=== PATIENT | female | born 1940 | race Caucasian/White ===

== ENCOUNTER 2025-05-17 00:26 | Inpatient (IN) | payer MEDICARE, OTHER ==
[2025-05-17] VITALS (13 sets, daily range): BP systolic 90–124; BP diastolic 53–87; PULSE 95–130; RESP 18–24; TEMP 96.7–97.4; O2SAT 93–100
[~2025-05-17] VITALS: Ht 157.5 cm; Wt 59.5 kg
--- NOTE | 2025-05-17 00:47 | ED.PDOC ---
History of Present Illness HPI Comments 84-year-old female transferred from [facility] for cardiac catheterization for NSTEMI. Patient on amiodarone drip for AFib with RVR. REVIEW OF SYSTEMS: General: No fever, no chills, or fatigue HEENT: No sore throat, no earache, no congestion, no neck pain. Cardiac: No chest pain at this time. No palpitations. Lungs: No shortness of breath, no cough. GI: No nausea, no vomiting, no diarrhea, no constipation, no abdominal pain : No dysuria, frequency, or urgency. No hematuria. Musculoskeletal: No joint pain , no joint swelling, no extremity edema. Skin: No rash, no itching. Neuro: No headache, no dizziness, + general weakness (And as sated in HPI) PHYSICAL EXAM: General: Awake, alert and oriented. No acute distress. Skin: Skin in warm, dry and intact. Appropriate color for ethnicity. HEENT: The head is normocephalic and atraumatic. Conjunctivae are clear without exudates or hemorrhage. Sclera is non-icteric. Eyelids are normal in appearance without swelling or lesions. Oral mucosa is pink and moist Neck: The neck is supple with normal range of motion. No JVD. Cardiac: Heart rate is rapid, regular rhythm. No murmurs, gallops, or rubs are auscultated. Respiratory: No signs of respiratory distress. Lung sounds are clear in all lobes bilaterally without rales, rhonchi, or wheezes. Abdominal: Abdomen is soft, non-tender without distention, guarding or rigidity. Bowel sounds are present and normoactive in all four quadrants. Extremities: Upper and lower extremities are atraumatic in appearance without deformity or edema. Neurological: The patient is awake, alert and oriented to person, place, and time with normal speech. Speech is clear. There is no facial asymmetry. Psychiatric: Appropriate mood and affect. Good judgement and insight. Chief Complaint: General Weakness Time Seen by MD: 00:45 Allergies: Coded Allergies: NO KNOWN ALLERGIES (Unverified , 05/17/25) Was a procedure done? Was a procedure done?: No Differential Dx Considerations may include: NSTEMI, AFib, PE X-Ray, Labs, Meds, VS Vital Signs Date Time Temp Pulse Resp B/P (MAP) Pulse Ox O2 Delivery O2 Flow Rate FiO2 05/17/25 04:00 121 28 91/52 (65) 100 05/17/25 04:00 120 05/17/25 03:33 19 99 Nasal Cannula* 2 28 05/17/25 03:22 105 05/17/25 02:24 99 29 103/55 (71) 96 05/17/25 01:18 91 05/17/25 01:03 96.7 96 29 90/53 (65) 100 96.7 05/17/25 01:03 100 Nasal Cannula* 2 28 05/17/25 00:32 96.7 96 20 128/70 97 96.7 05/17/25 00:28 94 Lab Test 05/17/25 03:58 05/17/25 03:17 05/17/25 03:12 05/17/25 02:05 Range/Units Lactic Acid Level 6.4 *H 6.7 *H 0.4-2.0 mmol/L Thyroid Stimulating Hormone (TSH) 0.05 L 0.55-4.78 uIU/mL Random Vancomycin Level 14.6 H 5-10 ug/mL POC Glucose 147 H 70-106 mg/dl Blood Gas Specimen Type Arterial Blood Gas Sample Site Right radial Blood Gas Patient Temperature 37.0 Arterial Blood Date Drawn [id number] Arterial Blood pH 7.292 L 7.350-7.450 Arterial Blood Partial Pressure CO2 29.5 L 32.0-45.0 mmHg Arterial Blood Partial Pressure O2 119.6 H 83.0-108.0 mmHg Arterial Blood HCO3 13.9 L 21.0-28.0 mmol/L Arterial Blood Oxygen Saturation 98.1 H 94.0-98.0 % Arterial Blood Base Excess -11.1 L -2.0-3.0 mmol/L Arterial Blood Oxyhemoglobin 96.4 94.0-98.0 % Arterial Blood Carboxyhemoglobin 1.2 0.5-1.5 % Arterial Blood Methemoglobin 0.5 0.0-1.5 % Demond Test Modified Blood Gas Total Hemoglobin 14.10 12.0-16.0 g/dL Blood Gas Liter Flow 2.00 Blood Gas Modality Nasal cannula FiO2 % 28.0 Potassium Level 5.7 *H 3.5-5.1 mmol/L Troponin I High Sensitivity 417 *H </=34 ng/L Test 05/17/25 00:58 05/17/25 00:55 Range/Units POC Glucose 142 H 70-106 mg/dl White Blood Count 24.8 H 4.4-10.8 10^3/uL Red Blood Count 5.09 4.0-5.20 10^6/uL Hemoglobin 13.7 12.2-16.2 g/dL Hematocrit 42.4 36.0-46.0 % Mean Corpuscular Volume 83.4 80.0-100.0 fL Mean Corpuscular Hemoglobin 27.0 L 28.0-32.0 pg Mean Corpuscular Hemoglobin Concent 32.4 32.0-36.0 g/dL Red Cell Distribution Width 14.5 H 11.8-14.3 % Platelet Count 274 140-450 10^3/uL Mean Platelet Volume 8.8 6.9-10.8 fL Neutrophils (%) (Auto) 91.8 H 37.0-80.0 % Lymphocytes (%) (Auto) 4.6 L 10.0-50.0 % Monocytes (%) (Auto) 3.5 0.0-12.0 % Eosinophils (%) (Auto) 0.0 0.0-7.0 % Basophils (%) (Auto) 0.1 0.0-2.0 % Neutrophils # (Auto) 22.8 H 1.6-8.6 10 ^3/uL Lymphocytes # (Auto) 1.1 0.4-5.4 10 ^3/uL Monocytes # (Auto) 0.9 0-1.3 10 ^3/uL Eosinophils # (Auto) 0 0-0.8 10 ^3/uL Basophils # (Auto) 0 0-0.2 10 ^3/uL Nucleated Red Blood Cells 0.0 % Prothrombin Time 21.6 H 9.3-11.8 sec Prothrombin Time INR 2.20 H 0.9-1.15 Activated Partial Thromboplast Time 41.6 H 24.5-34.5 SEC D-Dimer, Quantitative 3.14 H 0.0-0.49 mg/L FEU Sodium Level 139 136-145 mmol/L Potassium Level 6.0 *H 3.5-5.1 mmol/L Chloride Level 105 98-107 mmol/L Carbon Dioxide Level 18 L 20-31 mmol/L Anion Gap 16 H 5-15 Blood Urea Nitrogen 20 9-23 mg/dL Creatinine 1.26 H 0.550-1.02 mg/dL Glomerular Filtration Rate Calc 42 >90 mL/min BUN/Creatinine Ratio 15.9 10.0-20.0 Serum Glucose 133 H 74-106 mg/dL Calcium Level 9.4 8.7-10.4 mg/dL Troponin I High Sensitivity 411 *H </=34 ng/L B-Type Natriuretic Peptide 497.41 0-100 pg/mL Current Medications Medications (Trade) Dose Ordered Sig/Royce Route Start Time Stop Time Status Last Admin Insulin Human Regular (InsuLIN R) 10 units ONCE ONCE IV 05/17/25 03:00 05/17/25 03:04 DC 05/17/25 03:27 Dextrose 50 ml ONCE ONCE IV 05/17/25 03:00 05/17/25 03:04 DC 05/17/25 03:25 Albuterol (Ventolin Medneb) 20 mg ONCE ONCE NEB 05/17/25 03:00 05/17/25 03:04 DC 05/17/25 03:33 Sodium Bicarbonate 50 ml ONCE ONCE IV 05/17/25 03:00 05/17/25 03:04 DC 05/17/25 03:22 Calcium Gluconate/ Sodium Chloride 50 ml @ 120 mls/hr ONCE ONCE IV 05/17/25 03:00 05/17/25 03:24 DC 05/17/25 03:25 Sodium Chloride 1,000 ml @ 100 mls/hr Q10H ONCE IV 05/17/25 03:00 05/17/25 12:59 DC 05/17/25 03:28 Dextrose 50 ml ONCE ONCE IV 05/17/25 03:30 05/17/25 03:33 DC 05/17/25 03:44 Time of 1ST Reevaluation: 00:46 Reevaluation 1ST: Unchanged Patient Education/Counseling: Need For Follow Up Family Education/Counseling: No Family Present SEPSIS Sepsis Screen Physician Orders Electrocardigram (05/17/25 00:31) Electrocardigram (05/17/25 01:31) Electrocardigram (05/17/25 03:31) Titrate Oxygen (05/17/25 00:43) Oxygen (05/17/25 ) Continous Pulse Oximetry (05/17/25 00:43) Saline Lock (05/17/25 00:43) Do All Operator (05/17/25 ) Chest Xray 1 View (05/17/25 00:43) Abg W/ Co-Ox (05/17/25 02:58) Vital Signs Date Time Temp Pulse Resp B/P (MAP) Pulse Ox O2 Delivery O2 Flow Rate FiO2 05/17/25 04:00 121 28 91/52 (65) 100 05/17/25 04:00 120 05/17/25 03:33 19 99 Nasal Cannula* 2 28 05/17/25 03:22 105 05/17/25 02:24 99 29 103/55 (71) 96 05/17/25 01:18 91 05/17/25 01:03 96.7 96 29 90/53 (65) 100 96.7 05/17/25 01:03 100 Nasal Cannula* 2 28 05/17/25 00:32 96.7 96 20 128/70 97 96.7 05/17/25 00:28 94 Laboratory Tests Test 05/17/25 00:55 05/17/25 02:05 05/17/25 03:58 White Blood Count 24.8 10^3/uL (4.4-10.8) H Lactic Acid Level 6.7 mmol/L (0.4-2.0) *H 6.4 mmol/L (0.4-2.0) *H Departure 1 Departure Time of Disposition: 00:46 Impression: Primary Impression: NSTEMI (non-ST elevated myocardial infarction) Additional Impression: Afib Disposition: ADMITTED INPATIENT Condition: Stable Comments Patient admitted to hospitalist service for further treatment, evaluation and monitoring. Critical Care Note Critical Care Time?: No Stability Stability form required: No Heart Score Heart Score: Heart Score Response (Comments) Value History N/A 0 EKG N/A 0 Age N/A 0 Risk Factors N/A 0 Troponin N/A 0 Total 0 SANDRA DUARTE MD May 17, 2025 00:47
[2025-05-17 01:29] LABS: Hematocrit 42.4 % (36.0-46.0); Hemoglobin 13.7 g/dL (12.2-16.2); Mean Corpuscular Hemoglobin 27.0 pg (28.0-32.0); Mean Corpuscular Volume 83.4 fL (80.0-100.0); Nucleated Red Blood Cells % 0.0 %
[2025-05-17 01:33] LABS: Chloride 105 mmol/L (98-107); Sodium 139 mmol/L (136-145)
[2025-05-17 01:34] LABS: Anion Gap 16 (5-15); Calcium 9.4 mg/dL (8.7-10.4)
[2025-05-17 01:39] LABS: BUN/Creatinine Ratio 15.9 (10.0-20.0); Blood Urea Nitrogen 20 mg/dL (9-23)
[2025-05-17 01:41] LABS: Carbon Dioxide 18 mmol/L (20-31); Glucose 133 mg/dL (74-106)
[2025-05-17 01:42] LABS: Potassium 6.0 mmol/L (3.5-5.1)
--- NOTE | 2025-05-17 02:56 | DVH ---
CHEST RADIOGRAPH Indication: Chest pain Technique: Single frontal view of the chest was obtained COMPARISON: XR CHEST 1 VIEW on DOS: 05/16/25, XR CHEST 2 VIEWS on DOS: 11/27/24, CT CHEST on DOS: 06/10/24, XR CHEST 2 VIEWS on DOS: 12/04/23, XR CHEST 2 VIEWS on DOS: 12/12/21 FINDINGS: Lines and Tubes: None Lungs: Small bilateral pleural effusions and Mild diffuse increased prominence of the pulmonary vasculature. Mild patchy bilateral lower lung zone pulmonary airspace disease. No pneumothorax. Cardiomediastinal contours: Cardiomegaly. Bones: Unremarkable IMPRESSION: 1. Cardiomegaly with mild pulmonary vascular congestion and small bilateral pleural effusions. 2. Mild bilateral lower lung zone pulmonary airspace disease.
[2025-05-17 02:57] LABS: Lactic Acid w/Reflex 6.7 mmol/L (0.4-2.0)
[2025-05-17] MEDS: SODIUM BICARB 8.4% 50Meq/50ml SYR INJ IV ONE (03:22)
[2025-05-17] MEDS: CALCIUM GLUC 1,000mg/50ml-NS 50 ML IV ONE (03:25)
[2025-05-17] MEDS: DEXTROSE (50%) 50ML SYRG IV ONE ×2 (03:25→03:44)
[2025-05-17 03:26] LABS: Base Excess -11.1 mmol/L (-2.0-3.0)
[2025-05-17] MEDS: InsuLIN REG 1unit/0.01ml Soln (100units/ml) IV ONE (03:27)
[2025-05-17] MEDS: SODIUM CHLORIDE 0.9% 1,000 ML IV ONE (03:28)
[2025-05-17] MEDS: ALBUTEROL SULF 2.5 MG/0.5ML(0.5%) NEB SOLN NEB ONE (03:33)
[2025-05-17 04:20] LABS: INR 2.2 (0.9-1.15); Partial Thromboplastin Time 41.6 SEC (24.5-34.5); Prothrombin Time 21.6 sec (9.3-11.8)
[2025-05-17] MEDS ORDERED: MORPHINE SULFATE INJ 2 MG/ml SYRG IV PRN (04:30)
[2025-05-17] MEDS ORDERED: VANCOMYCIN PER PHARMACY 0 MG IV SCH (04:30)
[2025-05-17] MEDS ORDERED: NITROGLYCERIN 0.4 MG SL TAB SL PRN (04:30)
[2025-05-17] MEDS ORDERED: ACETAMINOPHEN 325 MG TAB PO PRN (04:30)
[2025-05-17] MEDS ORDERED: ALBUTEROL SULF 2.5 MG/0.5ML(0.5%) NEB SOLN NEB PRN (04:30)
[2025-05-17] MEDS ORDERED: VANCOMYCIN 1GM/200ML PM 200 ML IV ONE (04:45)
--- NOTE | 2025-05-17 04:45 | DVHHP2 ---
History of Present Illness Reason for Visit: Higher level of care History of Present Illness 84-year-old female transferred from [facility] for higher level of care. Patient presented to outside facility with complaints of generalized weakness. She reports also left-sided chest pain that has been ongoing for the past day with radiation to her back. Patient was noted to be in AFib with RVR and was started on amiodarone drip and transferred for higher level of care and cardiology evaluation. Past Medical History COPD, hypertension, AFib Family History Noncontributory Smoke: No ALCOHOL: none Drugs: None Review of Systems Review of Systems Review of systems are negative otherwise addressed in HPI. Allergies: Coded Allergies: NO KNOWN ALLERGIES (Unverified , 05/17/25) Medications Current Medications Medications Dose Ordered Sig/Royce Route Start Time Stop Time Status Last Admin Dose Admin Cefepime HCl 50 ml @ 12.5 mls/hr Q12HR IV 05/17/25 10:00 Vancomycin HCl 0 ml @ 0 mls/hr PER PHARMACY IV 05/17/25 04:30 UNV Albuterol 2.5 mg Q6HPRN PRN NEB 05/17/25 04:30 Amiodarone HCl 250 ml @ 16.66 mls/ hr Q15H1M IV 05/17/25 10:45 Guaifenesin/ Dextromethorphan 10 ml Q4HP PRN PO 05/17/25 04:30 Ondansetron HCl 4 mg Q4HP PRN IV 05/17/25 04:30 Acetaminophen 650 mg Q6HP PRN PO 05/17/25 04:30 Nitroglycerin 0.4 mg Q5MINP PRN SL 05/17/25 04:30 Morphine Sulfate 2 mg Q30M PRN IV 05/17/25 04:30 Exam Vital Signs Vital Signs Date Time Temp Pulse Resp B/P (MAP) Pulse Ox O2 Delivery O2 Flow Rate FiO2 05/17/25 04:26 130 05/17/25 03:33 19 99 Nasal Cannula* 2 28 05/17/25 01:03 96.7 90/53 (65) 96.7 Exam Gen: 84-year-old female in mild distress Skin: Warm, dry, normal color and texture, no rash. HEENT: Normocephalic atraumatic, mucous membranes moist and pink. Neck: Cervical and supraclavicular nodes normal without enlargement, trachea is midline, thyroid gland is normal without masses. Pulmonary: Clear to auscultation and percussion bilaterally. Cardiac: Irregular rhythm Abdomen: Soft, nontender, nondistended, bowel sounds present all 4 quadrants, no guarding, no rigidity, no organomegaly. Extremities: No cyanosis, clubbing, no edema Neuro: Cranial nerves II through XII grossly intact, normal affect and speech, no focal motor deficits. Labs/Xrays Labs Test 05/17/25 03:58 05/17/25 03:17 05/17/25 03:12 05/17/25 02:05 Range/Units POC Glucose 147 H 70-106 mg/dl Blood Gas Specimen Type Arterial Blood Gas Sample Site Right radial Blood Gas Patient Temperature 37.0 Arterial Blood Date Drawn Arterial Blood pH 7.292 L 7.350-7.450 Arterial Blood Partial Pressure CO2 29.5 L 32.0-45.0 mmHg Arterial Blood Partial Pressure O2 119.6 H 83.0-108.0 mmHg Arterial Blood HCO3 13.9 L 21.0-28.0 mmol/L Arterial Blood Oxygen Saturation 98.1 H 94.0-98.0 % Arterial Blood Base Excess -11.1 L -2.0-3.0 mmol/L Arterial Blood Oxyhemoglobin 96.4 94.0-98.0 % Arterial Blood Carboxyhemoglobin 1.2 0.5-1.5 % Arterial Blood Methemoglobin 0.5 0.0-1.5 % Demond Test Modified Blood Gas Total Hemoglobin 14.10 12.0-16.0 g/dL Blood Gas Liter Flow 2.00 Blood Gas Modality Nasal cannula FiO2 % 28.0 Potassium Level 5.7 *H 3.5-5.1 mmol/L Troponin I High Sensitivity 417 *H </=34 ng/L Test 05/17/25 00:55 Range/Units White Blood Count 24.8 H 4.4-10.8 10^3/uL Red Blood Count 5.09 4.0-5.20 10^6/uL Hemoglobin 13.7 12.2-16.2 g/dL Hematocrit 42.4 36.0-46.0 % Mean Corpuscular Volume 83.4 80.0-100.0 fL Mean Corpuscular Hemoglobin 27.0 L 28.0-32.0 pg Mean Corpuscular Hemoglobin Concent 32.4 32.0-36.0 g/dL Red Cell Distribution Width 14.5 H 11.8-14.3 % Platelet Count 274 140-450 10^3/uL Mean Platelet Volume 8.8 6.9-10.8 fL Neutrophils (%) (Auto) 91.8 H 37.0-80.0 % Lymphocytes (%) (Auto) 4.6 L 10.0-50.0 % Monocytes (%) (Auto) 3.5 0.0-12.0 % Eosinophils (%) (Auto) 0.0 0.0-7.0 % Basophils (%) (Auto) 0.1 0.0-2.0 % Neutrophils # (Auto) 22.8 H 1.6-8.6 10 ^3/uL Lymphocytes # (Auto) 1.1 0.4-5.4 10 ^3/uL Monocytes # (Auto) 0.9 0-1.3 10 ^3/uL Eosinophils # (Auto) 0 0-0.8 10 ^3/uL Basophils # (Auto) 0 0-0.2 10 ^3/uL Nucleated Red Blood Cells 0.0 % Prothrombin Time 21.6 H 9.3-11.8 sec Prothrombin Time INR 2.20 H 0.9-1.15 Activated Partial Thromboplast Time 41.6 H 24.5-34.5 SEC Sodium Level 139 136-145 mmol/L Chloride Level 105 98-107 mmol/L Carbon Dioxide Level 18 L 20-31 mmol/L Anion Gap 16 H 5-15 Blood Urea Nitrogen 20 9-23 mg/dL Creatinine 1.26 H 0.550-1.02 mg/dL Glomerular Filtration Rate Calc 42 >90 mL/min BUN/Creatinine Ratio 15.9 10.0-20.0 Serum Glucose 133 H 74-106 mg/dL Calcium Level 9.4 8.7-10.4 mg/dL B-Type Natriuretic Peptide 497.41 0-100 pg/mL SEPSIS Sepsis Screen Date sepsis recognized/suspect: May 17, 2025 Time Sepsis recognized/suspect: 010 Recent Procedure: No On Antibiotic Therapy: Yes Respiratory Rate >20: Yes Heart Rate >90: Yes Temp<36 C (96.8 F) or >38.3 C: Yes SBP <90 or MAP <65 mmHG: No New Acute Mental Status Change: No Is the patient on CPAP, BIPAP,: No Physician Orders Electrocardigram (05/17/25 00:31) Electrocardigram (05/17/25 01:31) Electrocardigram (05/17/25 03:31) Titrate Oxygen (05/17/25 00:43) Oxygen (05/17/25 ) Continous Pulse Oximetry (05/17/25 00:43) Saline Lock (05/17/25 00:43) Door Liner Helper (05/17/25 ) Chest Xray 1 View (05/17/25 00:43) Abg W/ Co-Ox (05/17/25 02:58) Sodium Chloride 0.9% (05/17/25 03:00) Blood Culture (05/17/25 04:24) Cefepime 1gm/50ml (Maxipime 1gm/50ml) (05/17/25 10:00) Vancomycin Per Pharmacy (05/17/25 04:30) Albuterol Medneb (Ventolin Medneb) (05/17/25 04:30) * Cardiology Consult (05/17/25 04:24) Amiodarone 450mg/250ml Ae (Cordarone) (05/17/25 04:45) Amiodarone 450mg/250ml Ae (Cordarone) (05/17/25 10:45) Thyroid Stimulating Hormone (05/17/25 04:24) Guaifenesin-Dextromet Liquid (Robitussin (05/17/25 04:30) Basic Metabolic Panel (05/18/25 04:00) Admit (05/17/25 04:24) Ondansetron Hcl (Zofran) (05/17/25 04:30) Complete Blood Count (05/18/25 04:00) Echo 2d Mode Cardiac Dop (05/17/25 04:24) Condition: Serious (05/17/25 04:24) Acetaminophen Tablet (Tylenol Tablet) (05/17/25 04:30) Bedrest With Bathroom Privileg (05/17/25 04:24) Nitroglycerin Sublingual (Ntrostat Subli (05/17/25 04:30) Morphine Sulfate Injection (05/17/25 04:30) Stat Ekg For Chest Pain (05/17/25 04:24) Notify Of Changes From Base (05/17/25 04:24) Global Expansion Sales Director For 24 Hours (05/17/25 04:24) Emergency Dysrhythmia Protocol (05/17/25 04:24) Rhythm Strips Once Every Shift (05/17/25 04:24) Oxygen By Nasal Cannula (05/17/25 04:24) Vancomycin 1gm/200ml Pm (05/17/25 04:45) Vital Signs Date Time Temp Pulse Resp B/P (MAP) Pulse Ox O2 Delivery O2 Flow Rate FiO2 05/17/25 04:26 130 05/17/25 03:33 19 99 Nasal Cannula* 2 28 05/17/25 03:22 105 05/17/25 01:18 91 05/17/25 01:03 96.7 96 29 90/53 (65) 100 96.7 05/17/25 00:32 96.7 96 20 128/70 97 96.7 05/17/25 00:28 94 Laboratory Tests Test 05/17/25 00:55 05/17/25 02:05 05/17/25 03:58 White Blood Count 24.8 10^3/uL (4.4-10.8) H Lactic Acid Level 6.7 mmol/L (0.4-2.0) *H Pending Medications Medications Dose Ordered Sig/Royce Route Start Time Stop Time Status Last Admin Dose Admin Albuterol 20 mg ONCE ONCE NEB 05/17/25 03:00 05/17/25 03:04 DC 05/17/25 03:33 20 MG Calcium Gluconate/ Sodium Chloride 50 ml @ 120 mls/hr ONCE ONCE IV 05/17/25 03:00 05/17/25 03:24 DC 05/17/25 03:25 120 MLS/HR Dextrose 50 ml ONCE ONCE IV 05/17/25 03:00 05/17/25 03:04 DC 05/17/25 03:25 50 ML Dextrose 50 ml ONCE ONCE IV 05/17/25 03:30 05/17/25 03:33 DC 05/17/25 03:44 50 ML Insulin Human Regular 10 units ONCE ONCE IV 05/17/25 03:00 05/17/25 03:04 DC 05/17/25 03:27 10 UNITS Sodium Bicarbonate 50 ml ONCE ONCE IV 05/17/25 03:00 05/17/25 03:04 DC 05/17/25 03:22 50 ML Sodium Chloride 1,000 ml @ 100 mls/hr Q10H ONCE IV 05/17/25 03:00 05/17/25 12:59 05/17/25 03:28 100 MLS/HR Assessment/Plan Assessment/Plan Assessment NSTEMI AFib with RVR Sepsis Possible pneumonia Leukocytosis Secondary coagulopathy Plan Admit the patient to [facility] to the hospitalist Cardiology consultation NPO except medications Continue amiodarone drip Cefepime/vancomycin Continue treatment per orders. Total critical care time excluding procedures performed this 55 minutes. Plan discussed with: Patient My Orders Orders - MEYERAUBREYSHAMA AGACNP Procedure Category Date Status Time Blood Culture MARYJANE 05/17/25 Logged 04:24 Cefepime 1gm/50ml PHA 05/17/25 In Process (Maxipime 1gm/50ml) 10:00 Vancomycin Per PHA 05/17/25 Pending Pharmacy 04:30 Albuterol Medneb PHA 05/17/25 In Process (Ventolin Medneb) 04:30 * Cardiology Consult CONS 05/17/25 Transmitted 04:24 Amiodarone PHA 05/17/25 In Process 450mg/250ml Ae 04:45 Amiodarone PHA 05/17/25 In Process 450mg/250ml Ae 10:45 Thyroid Stimulating LAB 05/17/25 In Process Hormone 04:24 Guaifenesin-Dextromet PHA 05/17/25 In Process Liquid (Robitussin 04:30 Basic Metabolic Panel LAB 05/18/25 Verified 04:00 Admit ADMIT 05/17/25 Transmitted 04:24 Ondansetron Hcl PHA 05/17/25 In Process (Zofran) 04:30 Complete Blood Count LAB 05/18/25 Verified 04:00 Echo 2d Mode Cardiac US 05/17/25 Logged DOP 04:24 Condition: Serious TELLY 05/17/25 In Process 04:24 Acetaminophen Tablet PHA 05/17/25 In Process (Tylenol Tablet) 04:30 Bedrest With Bathroom TELLY 05/17/25 In Process Privileg 04:24 Nitroglycerin PHA 05/17/25 In Process Sublingual (Ntrostat 04:30 Morphine Sulfate PHA 05/17/25 In Process Injection 04:30 Stat Ekg For Chest TELLY 05/17/25 In Process Pain 04:24 Notify Of Changes [facility] 05/17/25 In Process From Base 04:24 Global Expansion Sales Director For [facility] 05/17/25 In Process 24 Hours 04:24 Emergency Dysrhythmia [facility] 05/17/25 In Process Protocol 04:24 Rhythm Strips Once [facility] 05/17/25 In Process Every Shift 04:24 Oxygen By Nasal RT 05/17/25 Transmitted Cannula 04:24 Vancomycin 1gm/200ml [facility] 05/17/25 In Process Pm 04:45 Date of Service: May 17, 2025 Billing Provider: AUBREY MEYER Common Visit Codes: [id number] CARE 30-74 MIN AUBREY MEYER May 17, 2025 04:45
[2025-05-17] MEDS: CEFEPIME 1GM/50ML 50 ML IV SCH (08:56)
--- NOTE | 2025-05-17 10:20 | DVHINCON2 ---
Date Seen: May 17, 2025 Referring Physician DMITRY Milner Reason for Consultation NSTEMI History of Present Illness This is a pleasant 84-year-old female who presented to the emergency room via EMS as a transfer from [facility] for higher level of care given trending troponin levels. The patient presented to the aforementioned facility via EMS with a chief complaint of generalized weakness associated with a productive cough for approximately one day. EN route to the hospital the patient was found to be tachycardic in an atrial fibrillation rhythm with a rapid ventricular rate and an associated heart rate was in the 160s bpm. She was medicated with metoprolol 5 mg IV x3 and metoprolol 25 mg p.o, started on an amiodarone drip including a bolus dosage, and administered 1 L of IV fluids initially and subsequently 40 mg of Lasix IV. Given non-sensitive troponin levels from 0.05 ng/mL followed by 0.20 ng/mL it was decided to transfer to [facility] for further evaluation. At time of assessment the patient complaint of increased lethargy, chest congestion, productive cough. She is currently on IVF at 100 mls/hr and an amiodarone drip at 1 mg/hr. The patient reports following up in the outpatient setting with the primary ceo & co founder Dr. Anderson and undergoing a cardiac catheterization without catheter based intervention given normal coronaries in [place] in 06/2023. Significant medical history includes unspecified congestive heart failure, likely persistent atrial fibrillation on Eliquis/metoprolol therapy, history of pulmonary emboli in 06/2023, hypertension, dyslipidemia, hypothyroidism, nonsmoker COPD/emphysema, and CPAP dependence HS. Past Medical History Past medical history reviewed. No other significant than mentioned above. Past Surgical History Past surgical history reviewed. No other significant than mentioned above. Family History Family history reviewed. Social History Denies the use of illicit drugs, alcohol, or tobacco use. Allergies: Coded Allergies: NO KNOWN ALLERGIES (Unverified , 05/17/25) Home Meds Home medications reviewed. Current Medications Current Medications Medications (Trade) Dose Ordered Sig/Royce Route PRN Reason Start Time Stop Time Status Last Admin Cefepime HCl 50 ml @ 12.5 mls/hr Q12HR IV 05/17/25 10:00 05/17/25 08:56 Vancomycin HCl 0 ml @ 0 mls/hr PER PHARMACY IV 05/17/25 04:30 Albuterol (Ventolin Medneb) 2.5 mg Q6HPRN PRN NEB SHORTNESS OF BREATH 05/17/25 04:30 Amiodarone HCl 250 ml @ 16.66 mls/ hr Q15H1M IV 05/17/25 10:45 Guaifenesin/ Dextromethorphan (Robitussin-Dm Liquid) 10 ml Q4HP PRN PO FOR COUGH 05/17/25 04:30 Ondansetron HCl (Zofran) 4 mg Q4HP PRN IV NAUSEA / VOMITING 05/17/25 04:30 Acetaminophen (Tylenol Tablet) 650 mg Q6HP PRN PO PAIN SCALE 1-3 OR TEMP>100.4 05/17/25 04:30 Nitroglycerin (Ntrostat Sublingual) 0.4 mg Q5MINP PRN SL FOR CHEST PAIN 05/17/25 04:30 Morphine Sulfate 2 mg Q30M PRN IV FOR CHEST PAIN 05/17/25 04:30 Review of Systems Constitutional: No symptom reported Ears, Nose, & Throat: No symptom reported Eyes: No symptom reported Neurological: No symptoms reported Pulmonary/Respiratory: SOB, chest congestion, productive cough Cardiovascular: No symptom reported Gastrointestinal: No symptom reported Genitourinary: No symptom reported Musculoskeletal: No symptom reported Skin: No symptom reported Psychiatric: No symptom reported Endocrine: No symptom reported Hemotologic/Lymphatic: No symptom reported Vital Signs Vital Signs Date Time Temp Pulse Resp B/P (MAP) Pulse Ox O2 Delivery O2 Flow Rate FiO2 05/17/25 08:00 122 05/17/25 06:30 97.4 24 95/62 (73) 97 97.4 05/17/25 06:11 Room Air* 0 21 Physical Exam General Appearance: Cooperative. Lethargic. Tachypneic. SOB Head Exam: Normal inspection Neck Exam: Normal inspection. Non-tender. Normal alignment Pulmonary/Respiratory: Chest non-tender. Coarse/adventitious bilateral breath sounds. O2 via NC Cardiovascular/Chest: Irregularly irregular rate and rhythm. AFib low 100s bpm. No murmurs. No JVD. Peripheral Pulses: 2+ Radial (R). 2+ Radial (L). 2+ Pedal (R). 2+ Pedal (L) Abdominal Exam: Normal bowel sounds. Soft. Nontender. No hepatospenomegaly. No masses Ankle Exam: Negative ankle edema Lower extremities: Negative lower extremity edema Neuro/Mental Status: A&O x4. Coherent Thoughts/Psych: Normal thought pattern. Appropriate mood and affect. Good judgement and insight Appearance: Lethargic. Tachypneic. SOB Skin Exam: Normal inspection. Normal color. Warm. Dry Labs/Diagnostic Data Labs Test 05/17/25 08:02 05/17/25 03:58 05/17/25 03:12 05/17/25 02:05 Range/Units POC Glucose 340 H 70-106 mg/dl Lactic Acid Level 6.4 *H 0.4-2.0 mmol/L Thyroid Stimulating Hormone (TSH) 0.05 L 0.55-4.78 uIU/mL Random Vancomycin Level 14.6 H 5-10 ug/mL Blood Gas Specimen Type Arterial Blood Gas Sample Site Right radial Blood Gas Patient Temperature 37.0 Arterial Blood Date Drawn [id number] Arterial Blood pH 7.292 L 7.350-7.450 Arterial Blood Partial Pressure CO2 29.5 L 32.0-45.0 mmHg Arterial Blood Partial Pressure O2 119.6 H 83.0-108.0 mmHg Arterial Blood HCO3 13.9 L 21.0-28.0 mmol/L Arterial Blood Oxygen Saturation 98.1 H 94.0-98.0 % Arterial Blood Base Excess -11.1 L -2.0-3.0 mmol/L Arterial Blood Oxyhemoglobin 96.4 94.0-98.0 % Arterial Blood Carboxyhemoglobin 1.2 0.5-1.5 % Arterial Blood Methemoglobin 0.5 0.0-1.5 % Demond Test Modified Blood Gas Total Hemoglobin 14.10 12.0-16.0 g/dL Blood Gas Liter Flow 2.00 Blood Gas Modality Nasal cannula FiO2 % 28.0 Potassium Level 5.7 *H 3.5-5.1 mmol/L Troponin I High Sensitivity 417 *H </=34 ng/L Test 05/17/25 00:55 Range/Units White Blood Count 24.8 H 4.4-10.8 10^3/uL Red Blood Count 5.09 4.0-5.20 10^6/uL Hemoglobin 13.7 12.2-16.2 g/dL Hematocrit 42.4 36.0-46.0 % Mean Corpuscular Volume 83.4 80.0-100.0 fL Mean Corpuscular Hemoglobin 27.0 L 28.0-32.0 pg Mean Corpuscular Hemoglobin Concent 32.4 32.0-36.0 g/dL Red Cell Distribution Width 14.5 H 11.8-14.3 % Platelet Count 274 140-450 10^3/uL Mean Platelet Volume 8.8 6.9-10.8 fL Neutrophils (%) (Auto) 91.8 H 37.0-80.0 % Lymphocytes (%) (Auto) 4.6 L 10.0-50.0 % Monocytes (%) (Auto) 3.5 0.0-12.0 % Eosinophils (%) (Auto) 0.0 0.0-7.0 % Basophils (%) (Auto) 0.1 0.0-2.0 % Neutrophils # (Auto) 22.8 H 1.6-8.6 10 ^3/uL Lymphocytes # (Auto) 1.1 0.4-5.4 10 ^3/uL Monocytes # (Auto) 0.9 0-1.3 10 ^3/uL Eosinophils # (Auto) 0 0-0.8 10 ^3/uL Basophils # (Auto) 0 0-0.2 10 ^3/uL Nucleated Red Blood Cells 0.0 % Prothrombin Time 21.6 H 9.3-11.8 sec Prothrombin Time INR 2.20 H 0.9-1.15 Activated Partial Thromboplast Time 41.6 H 24.5-34.5 SEC D-Dimer, Quantitative 3.14 H 0.0-0.49 mg/L FEU Sodium Level 139 136-145 mmol/L Chloride Level 105 98-107 mmol/L Carbon Dioxide Level 18 L 20-31 mmol/L Anion Gap 16 H 5-15 Blood Urea Nitrogen 20 9-23 mg/dL Creatinine 1.26 H 0.550-1.02 mg/dL Glomerular Filtration Rate Calc 42 >90 mL/min BUN/Creatinine Ratio 15.9 10.0-20.0 Serum Glucose 133 H 74-106 mg/dL Calcium Level 9.4 8.7-10.4 mg/dL B-Type Natriuretic Peptide 497.41 0-100 pg/mL Assessment Sepsis with PNA Acute on chronic hypoxic respiratory failure Acute on chronic decompensated HF, NYHA Class IV Likely persistent AFib with RVR, stage IIIB (on Eliquis/metoprolol therapy) COPD/emphysema exacerbation NSTEMI, likely type 2 secondary to above Hx of PE in 2022 with elevated d-dimer, rule out PE/DVT Thyroid disease Dyslipidemia * Transthoracic echocardiogram pending * Twelve-lead electrocardiograms revealed an atrial fibrillation rhythm with intermittent RVR and no ST-T wave segment changes suggestive of acute ischemia * CXR revealed cardiomegaly with mild pulmonary vascular congestion and small bilateral pleural effusions. Mild bilateral lower zone pulmonary airspace disease * Serial troponin levels flat at 400s ng/L x2 * [facility]: * WBC 22.0, BNP 573, Troponin up to 0.20 ng/mL, TSH 0.03, lactic acid 2.7, D- dimer 0.98 * CXR 1 view: cardiomegaly with increasing interstitial markings especially in the middle HS. Infection versus congestive failure or bolus in the differential * CT head w/o contrast: No CT evidence of an acute intracranial abnormality. Intermediate areas of extensive soft tissue emphysema tracking along the cavernous sinuses and likely along the venous structures likely related to iatrogenic injection of the air and less likely related to soft tissue infection. Correlate with clinical exam * CT chest-abdomen pelvis w/o contrast: Small bilateral pleural effusions with bilateral lower lobe predominant cylindrical bronchiectasis and peribronchial thickening. Patchy areas of consolidation with marginal ground-glass versus masses. Prominent mediastinal lymphadenopathy. Large amount of stool burden with in the lower rectum. Broad differential includes infection however neoplastic disease not excluded mediastinal lymphadenopathy might be reactive versus neoplastic Plan/Recommendation (Dr. Swanson) Case discussed with Dr. Swanson. We will continue further cardiac evaluation with a transthoracic echocardiogram. Obtain lower extremity venous US to rule out DVT. Continue amiodarone drip per pharmacy protocol (suspected persistent A- fib) and initiate therapeutic Lovenox ([id number] Score 5 points, HAS-BLED Score 1 point). Obtain influenza, COVID-19 swabs, and urine sample. Initiate vasopressor for hemodynamic support as necessary. Monitor electrolytes and renal function closely. Strict I&Os. Consider pulmonology consultation. Abx therapy per primary care team. Further orders per clinical course. Thank you for allowing us to participate in this patient's care. Please call if you have any questions or concerns. Critical care time: 40 min. This medical document was created using an e lectronic medical record system with voice recognition software and computerized dictation system. Although this document has been carefully reviewed, there might still be some phonetic and typographical errors. Occasional wrong-word or ``sound-alike substitutions may have occurred due to the inherent limitations of voice recognition software. These areas are purely typographical due to imperfections of the software programs and do not reflect any compromise in the patient's medical care. Please read the chart carefully and recognize, using context, where these substitutions have occurred. Plan discussed with: Patient, Other NYHA Physical activity limitations: Class4(Severe)discomfort (w any activit,symptoms at rest) Date of Service: May 17, 2025 Billing Provider: OLGA GILL Cardiology Common Codes: [id number] CARE 30-74 MIN OLGA GILL May 17, 2025 10:20
[2025-05-17] MEDS ORDERED: ENOXAPARIN SOD 100 MG/1 ML SYRINGE SC ONE (10:30)
[2025-05-17] MEDS ORDERED: DEXTROSE (50%) 50ML SYRG IV PRN (10:30)
[2025-05-17] MEDS: guaiFENesin-DM 100/10mg/5ml SYR PO PRN (10:52)
[2025-05-17] MEDS: LEVALBUTEROL HCL 1.25 MG/3 ML NEB ONE (11:02)
--- NOTE | 2025-05-17 11:47 | DVHSR ---
APPROVED REPORT EXAM: Two-dimensional and M-mode echocardiogram with Doppler and color Doppler. Blood Pressure: 95/62 mmHg INDICATION ef RISK FACTORS Height: 62, Weight: 149 DIMENSIONS LVDd 5.0 (3.8-5.7cm) LA (2D) 4.2 (1.9-4.0cm) Aortic Root 3.2 (2.0-3.7cm) LVDs 3.4 (2.5-4.0cm) LA (MM) (1.9-4.0cm) Aortic Cusp Exc 1.3 (1.5-2.0cm) EF (%) 45.0 (55-70%) Rt. Atrium 4.6 (1.9-4.0cm) Asc. Aorta cm IVSd 0.9 (0.7-1.1cm) RV (D) 4.6 (1.8-2.4cm) PWd 0.9 (0.7-1.1cm) Mitral Valve Mitral Mitral Stenosis A wave m/s MV Peak GR. 78mmHg E/A ratio 0.0 2D MVA cm2 Aortic Valve Aortic Valve Aortic Stenosis V1 0.55m/s AO Mean GR. 3mmHg V2 1.10m/s AO Peak GR. 5mmHg LVOT Diameter 2.1 (1.8-2.4cm) Doppler NIMO 1.73cm2 Tricuspid Valve TR Velocity 3.41m/s RVSP 55mmHg Conclusion lvef 25% dilated LV RV dysfunction biatrial enlargement severe aortic sclerosis, cannot rule out , given low flow status moderate tricuspid regurg
[2025-05-17 12:13] LABS: Hematocrit 38.3 % (36.0-46.0); Hemoglobin 12.0 g/dL (12.2-16.2); Mean Corpuscular Hemoglobin 26.1 pg (28.0-32.0); Mean Corpuscular Volume 83.2 fL (80.0-100.0); Nucleated Red Blood Cells % 0.0 %
[2025-05-17] MEDS: ACCU-CHEK COMFORT CURVE STRIP VI SCH (12:17)
[2025-05-17] MEDS: InsuLIN REG 1unit/0.01ml Soln (100units/ml) SC SCH ×2 (12:17→22:00)
[2025-05-17] MEDS: ENOXAPARIN SOD 80 MG/0.8ML SYRINGE SC ONE (12:18)
[2025-05-17 12:19] LABS: Chloride 102 mmol/L (98-107); Potassium 4.5 mmol/L (3.5-5.1); Sodium 136 mmol/L (136-145)
[2025-05-17 12:20] LABS: Anion Gap 18 (5-15); Calcium 9.0 mg/dL (8.7-10.4)
[2025-05-17 12:25] LABS: BUN/Creatinine Ratio 14.7 (10.0-20.0)
[2025-05-17 12:28] LABS: Blood Urea Nitrogen 32 mg/dL (9-23); Carbon Dioxide 16 mmol/L (20-31); Glucose 335 mg/dL (74-106)
[2025-05-17 12:33] LABS: Triglycerides 132 mg/dL (< 150)
[2025-05-17 12:34] LABS: Free T4 (Free Thyroxine) 1.4 ng/dL (0.89-1.76)
[2025-05-17 12:35] LABS: Cholesterol 97 mg/dL (< 200)
[2025-05-17 12:36] LABS: HDL Cholesterol 40 mg/dL (40-59)
[2025-05-17 12:48] LABS: COVID19 ANTIGEN SOFIA FIA NEGATIVE (NEGATIVE)
[2025-05-17 12:57] LABS: Urine Protein, UAD 1+ (Negative)
[2025-05-17] MEDS: MAGNESIUM SULFATE 1GM/100ML 100 ML IV ONE (14:40)
--- NOTE | 2025-05-17 15:34 | DVHPN2 ---
Subjective Patient reports generalized weakness and shortness of breaths. Reviewed: Care Plan, H&P, Labs, Medications, Previous Orders Changes from previous H/P or p: No Changes General: Per HPI Objective Vitals Vital Signs Date Time Temp Pulse Resp B/P (MAP) Pulse Ox O2 Delivery O2 Flow Rate FiO2 05/17/25 14:00 104 20 106/76 (86) 92 05/17/25 12:00 98.1 98.1 05/17/25 11:02 Nasal Cannula 1.0 05/17/25 11:02 24 General Appearance: Alert, Oriented X3, Cooperative, mild distress HEENT: Atraumatic, PERRLA Lungs: Clear to auscultation, Normal air movement Cardiovascular: Normal S1, Normal S2, Other (Atrial fibrillation) Abdomen: Normal bowel sounds, Soft, No tenderness, No hepatospenomegaly Musculoskeletal: Normal sensory function Extremities: No clubbing, No cyanosis, No edema, Normal pulses, No tenderness/swelling Neuro: Normal speech Skin: Dry, Intact Psych/Mental Status: Mental status NL, Mood NL Medications Current Medications Medications Dose Ordered Sig/Royce Route Start Time Stop Time Status Last Admin Dose Admin Cefepime HCl 50 ml @ 12.5 mls/hr Q12HR IV 05/17/25 10:00 05/17/25 08:56 12.5 MLS/HR Albuterol 2.5 mg Q6HPRN PRN NEB 05/17/25 04:30 Amiodarone HCl 250 ml @ 16.66 mls/ hr Q15H1M IV 05/17/25 10:45 05/17/25 11:09 16.66 MLS/HR Guaifenesin/ Dextromethorphan 10 ml Q4HP PRN PO 05/17/25 04:30 05/17/25 10:52 10 ML Ondansetron HCl 4 mg Q4HP PRN IV 05/17/25 04:30 Acetaminophen 650 mg Q6HP PRN PO 05/17/25 04:30 Nitroglycerin 0.4 mg Q5MINP PRN SL 05/17/25 04:30 Morphine Sulfate 2 mg Q30M PRN IV 05/17/25 04:30 Enoxaparin Sodium 70 mg Q12HR SC 05/17/25 22:00 UNV Norepinephrine Bitartrate 32 mg/ Sodium Chloride 250 ml @ 0.938 mls/ hr Q24H IV 05/17/25 10:30 Diagnostic Test (Pha) 1 strip ACHS 05/17/25 11:30 05/17/25 12:17 1 STRIP Insulin Human Regular HS SC 05/17/25 22:00 Insulin Human Regular AC SC 05/17/25 11:30 05/17/25 12:17 12 UNITS Dextrose 50 ml UD PRN IV 05/17/25 10:30 Levalbuterol HCl 1.25 mg Q6HR NEB 05/17/25 12:00 Enoxaparin Sodium 70 mg DAILY SC 05/18/25 10:00 Linezolid 300 ml @ 150 mls/hr Q12HR IV 05/17/25 22:00 UNV Laboratory Results Laboratory Tests 05/17/25 11:48 Chemistry Test 05/17/25 00:55 05/17/25 11:48 Calcium Level 9.4 mg/dL (8.7-10.4) 9.0 mg/dL (8.7-10.4) Magnesium Level 1.7 mg/dL (1.6-2.6) Coagulation Test 05/17/25 00:55 Prothrombin Time 21.6 sec (9.3-11.8) H Prothrombin Time INR 2.20 (0.9-1.15) H Activated Partial Thromboplast Time 41.6 SEC (24.5-34.5) H D-Dimer, Quantitative 3.14 mg/L FEU (0.0-0.49) H Lipid panel Test 05/17/25 11:48 Cholesterol Level 97 mg/dL (< 200) HDL Cholesterol 40 mg/dL (40-59) Triglycerides Level 132 mg/dL (< 150) Cardiac Markers Test 05/17/25 00:55 B-Type Natriuretic Peptide 497.41 pg/mL (0-100) HgA1c, TSH Test 05/17/25 03:58 05/17/25 11:48 Thyroid Stimulating Hormone (TSH) 0.05 uIU/mL (0.55-4.78) L Hemoglobin A1c 6.0 % A1C (<5.7) H Urinalysis Test 05/17/25 11:32 Urine Color Yellow (Yellow) Urine Clarity Turbid (Clear) H Urine pH 5.5 (5.0-9.0) Urine Specific [place] 1.016 (1.001-1.035) Urine Protein 1+ (Negative) H Urine Ketones 1+ (Negative) H Urine Blood Negative /uL (Negative) Urine Nitrite Negative (Negative) Urine Bilirubin Negative (Negative) Urine Urobilinogen Normal mg/dL (Negative) Urine Leukocyte Esterase Negative /uL (Negative) Urine RBC 6 /hpf (0 - 4) Urine Microscopic WBC 4 /HPF (0-5) Urine Squamous Epithelial Cells Few /hpf (<5) Urine Bacteria Few /hpf (None Seen) H Urine Hyaline Casts Mod /lpf (0 - 2) Urine Mucus Few (None Seen) Urine Glucose Normal mg/dL (Normal) Blood Gas Results Test 05/17/25 03:12 Arterial Blood pH 7.292 (7.350-7.450) FiO2 % 28.0 Labs and/or images reviewed: Labs reviewed by me, Image(s) reviewed by me Assessment/Plan Assessment/Plan Impression: -sepsis -multifocal pneumonia, probable Gram-positive/Gram-negative etiology -AFib with RVR -acute on chronic systolic heart failure -acute hypoxic respiratory failure -NSTEMI, probably type secondary to sepsis -history of pulmonary embolism -acute kidney injury, vasomotor nephropathy - dyslipidemia -COPD -diabetes mellitus Plan: -antibiotic therapy: Continue cefepime, stop vancomycin given renal function, start Zyvox -cardiology consultation: Recommendations reviewed -nephrology consultation placed -O2 supplementation to keep saturation greater than 92% -V/Q scan -lynn cultures -continue amiodarone drip per protocol -restart metoprolol tartrate given acceptable blood pressure -bronchodilators, add Pulmicort -regular insulin sliding scale -repeat labs and chest x-ray In a.m. Critical care time spent with patient discussing and formulating plan of care: 40 minutes. This does not include time spent performing procedures. This medical document was created using an electronic medical record system with NEXAGE dictation system. Although this document has been carefully reviewed, there may still be some phonetic and typographical errors. These areas are purely typographical due to imperfections of the software programs, and do not reflect any compromise in the patient's medical care. Plan discussed with: Patient, Other (RN) My Orders Orders - BRIAN AGUIRRE NP Procedure Category Date Status Time Linezolid 600mg/300ml PHA 11/10/25 Logged (Zyvox) 22:00 Sodium Bicarb PHA 05/17/25 Logged 50meq/50ml Vial 14:30 Respiratory Culture MARYJANE 05/17/25 Logged W/ Gs 14:27 Nm Vq Scan NM 05/17/25 Logged 14:45 Date of Service: May 17, 2025 Billing Provider: BRIAN AGUIRRE NP Common Visit Codes: [id number] CARE 30-74 MIN BRIAN AGUIRRE NP May 17, 2025 15:34
[2025-05-17] MEDS: SODIUM BICARB 8.4% 50Meq/50ml SYR Vial IV ONE (16:04)
[2025-05-17] MEDS: LEVALBUTEROL HCL 1.25 MG/3 ML NEB NEB SCH (18:00)
[2025-05-17] MEDS ORDERED: VANCOMYCIN 1GM/250ML KIT 250 ML IV ONE (20:00)
[2025-05-17] MEDS: ONDANSETRON HCL 4 MG/2 ML VIAL IV PRN (20:37)
[2025-05-17] MEDS: NOREPINEPHRINE BITARTRATE 32 MG in SODIUM CHL 0.9% 218 ML IV SCH (21:59)
[2025-05-17] MEDS ORDERED: ENOXAPARIN SOD 100 MG/1 ML SYRINGE SC SCH (22:00)
[2025-05-17] MEDS: LINEZOLID 600MG/300ML 300 ML IV SCH (22:08)
[2025-05-18] VITALS (48 sets, daily range): BP systolic 108–141; BP diastolic 66–94; PULSE 94–132; RESP 16–26; TEMP 97.1–97.7; O2SAT 93–100
[2025-05-18 05:42] LABS: Hematocrit 38.6 % (36.0-46.0); Hemoglobin 12.4 g/dL (12.2-16.2); Mean Corpuscular Hemoglobin 26.3 pg (28.0-32.0); Mean Corpuscular Volume 81.6 fL (80.0-100.0); Nucleated Red Blood Cells % 0.1 %
[2025-05-18 05:48] LABS: Chloride 100 mmol/L (98-107); Potassium 4.3 mmol/L (3.5-5.1); Sodium 137 mmol/L (136-145)
[2025-05-18 05:49] LABS: Anion Gap 18 (5-15); Calcium 8.8 mg/dL (8.7-10.4)
[2025-05-18 05:54] LABS: BUN/Creatinine Ratio 12.6 (10.0-20.0)
[2025-05-18 06:04] LABS: Blood Urea Nitrogen 37 mg/dL (9-23); Carbon Dioxide 19 mmol/L (20-31); Glucose 138 mg/dL (74-106)
[2025-05-18 09:52] LABS: Base Excess -9.7 mmol/L (-2.0-3.0)
--- NOTE | 2025-05-18 10:05 | DVHPN2 ---
Consult Progress Note Date Seen: May 18, 2025 Subjective Other Systems: No overnight cardiac events reported Objective vital signs Vital Sign Date Time Temp Pulse Resp B/P (MAP) Pulse Ox O2 Delivery O2 Flow Rate FiO2 05/18/25 08:15 117 18 98 50.0 80 05/18/25 07:59 Nasal Cannula 05/18/25 06:00 97.5 109/74 (86) 97.5 Total Intake and Output 05/17/25 05/17/25 05/18/25 15:00 23:00 07:00 Intake Total 849.96 ml 383.28 ml 316.62 ml Output Total 300 ml Balance 849.96 ml 383.28 ml 16.62 ml medications Current Medications Medications Dose Ordered Sig/Royce Route Start Time Stop Time Status Last Admin Dose Admin Amiodarone HCl 250 ml @ 16.66 mls/ hr Q15H1M IV 05/17/25 10:45 05/18/25 02:22 16.66 MLS/HR Guaifenesin/ Dextromethorphan 10 ml Q4HP PRN PO 05/17/25 04:30 05/17/25 17:12 10 ML Ondansetron HCl 4 mg Q4HP PRN IV 05/17/25 04:30 05/18/25 08:51 4 MG Acetaminophen 650 mg Q6HP PRN PO 05/17/25 04:30 Nitroglycerin 0.4 mg Q5MINP PRN SL 05/17/25 04:30 Morphine Sulfate 2 mg Q30M PRN IV 05/17/25 04:30 Enoxaparin Sodium 70 mg Q12HR SC 05/17/25 22:00 UNV Norepinephrine Bitartrate 32 mg/ Sodium Chloride 250 ml @ 0.938 mls/ hr Q24H IV 05/17/25 10:30 Diagnostic Test (Pha) 1 strip ACHS 05/17/25 11:30 05/18/25 06:39 1 STRIP Insulin Human Regular HS SC 05/17/25 22:00 Insulin Human Regular AC SC 05/17/25 11:30 05/17/25 16:51 9 UNITS Dextrose 50 ml UD PRN IV 05/17/25 10:30 Levalbuterol HCl 1.25 mg Q6HR NEB 05/17/25 12:00 05/18/25 07:59 1.25 MG Enoxaparin Sodium 70 mg DAILY SC 05/18/25 10:00 Linezolid 300 ml @ 150 mls/hr Q12HR IV 05/17/25 22:00 05/18/25 08:55 150 MLS/HR Cefepime HCl 50 ml @ 12.5 mls/hr DAILY@1200 IV 05/18/25 12:00 Examination: GENERAL:Abnormal (Lethargic/generalized weakness), LUNGS:Abnormal (BLS coarse/congested. O2 via NC), CVS:Abnormal (A-fib with RVR up to 120s bpm. +systolic murmur), NEURO:Normal laboratory and microbiology Laboratory Tests 05/18/25 05:03 Test 05/18/25 05:03 Range/Units Serum Glucose 138 H 74-106 mg/dL Problem List/Assessment/Plan Problem List/Assessment/Plan Sepsis with multifocal PNA Acute on chronic hypoxic respiratory failure Acute on chronic decompensated HFrEF, NYHA Class IV Non-ischemic cardiomyopathy (-[facility] in 2022) Likely persistent AFib with RVR, stage IIIB (on Eliquis/metoprolol therapy) COPD/emphysema exacerbation NSTEMI, likely type 2 secondary to above Hx of PE in 2022 with elevated d-dimer, rule out PE/DVT Pulmonary hypertension, moderate degree Tricuspid regurgitation, moderate degree Severe aortic sclerosis rule out severe ([id number] gradient) Pre-diabetes mellitus Thyroid disease Dyslipidemia * Transthoracic echocardiogram revealed LVEF 25% with RV dysfunction, biatrial enlargement, severe aortic sclerosis cannot rule out given low-flow status, moderate tricuspid regurgitation * Twelve-lead electrocardiograms revealed an atrial fibrillation rhythm with intermittent RVR and no ST-T wave segment changes suggestive of acute ischemia * CXR revealed cardiomegaly with mild pulmonary vascular congestion and small bilateral pleural effusions. Mild bilateral lower zone pulmonary airspace disease * Serial troponin levels flat at 400s ng/L x2 * [facility]: * WBC 22.0, BNP 573, Troponin up to 0.20 ng/mL, TSH 0.03, lactic acid 2.7, D- dimer 0.98 * CXR 1 view: cardiomegaly with increasing interstitial markings especially in the middle HS. Infection versus congestive failure or bolus in the differential * CT head w/o contrast: No CT evidence of an acute intracranial abnormality. Intermediate areas of extensive soft tissue emphysema tracking along the cavernous sinuses and likely along the venous structures likely related to iatrogenic injection of the air and less likely related to soft tissue infection. Correlate with clinical exam * CT chest-abdomen pelvis w/o contrast: Small bilateral pleural effusions with bilateral lower lobe predominant cylindrical bronchiectasis and peribronchial thickening. Patchy areas of consolidation with marginal ground-glass versus masses. Prominent mediastinal lymphadenopathy. Large amount of stool burden with in the lower rectum. Broad differential includes infection however neoplastic disease not excluded mediastinal lymphadenopathy might be reactive versus neoplastic Plan/Recommendation (Dr. Swanson) The patient can benefit from an eventual dobutamine stress echocardiogram to rule out severe aortic valve stenosis (LF-LG). In the meantime, discontinue amiodarone drip and initiate rate control with digoxin. Continue therapeutic Lovenox and transition to DOAC when appropriate ([id number] Score 5 points, HAS-BLED Score 1 point). Initiate quad concentration vasopressor for hemodynamic support as necessary. Monitor electrolytes and renal function closely. Strict I&Os. Repeat CXR. Continue Nephrology consultation. Consider pulmonology consultation. Abx therapy per primary care team. Further orders per clinical course. Thank you for allowing us to participate in this patient's care. Please call if you have any questions or concerns. Critical care time: 30 min. This medical document was created using an electronic medical record system with voice recognition software and computerized dictation system. Although this document has been carefully reviewed, there might still be some phonetic and typographical errors. Occasional wrong-word or ``sound-alike substitutions may have occurred due to the inherent limitations of voice recognition software. These areas are purely typographical due to imperfections of the software programs and do not reflect any compromise in the patient's medical care. Please read the chart carefully and recognize, using context, where these substitutions have occurred. Plan discussed with: Patient, Spouse, Other Date of Service: May 18, 2025 Billing Provider: OLGA GILL Cardiology Common Codes: [id number] CARE 30-74 MIN OLGA GILL May 18, 2025 10:05
[2025-05-18 10:06] LABS: Magnesium 2.1 mg/dL (1.6-2.6)
[2025-05-18 10:09] LABS: Uric Acid 11.4 mg/dL (3.1-7.8)
[2025-05-18] MEDS: DIGOXIN (250MCG/ML) 2 ML AMPULE IV ONE (10:36)
[2025-05-18] MEDS: SODIUM CHLORIDE 0.9% 1,000 ML IV ONE ×2 (11:15→17:53)
[2025-05-18] MEDS ORDERED: PANTOPRAZOLE 40 MG/10 ML VIAL INJ IV ONE (11:15)
--- NOTE | 2025-05-18 11:20 | DVHPN2 ---
Subjective Continues to report having generalized weakness. Reviewed: Care Plan, H&P, Labs, Medications, Previous Orders Changes from previous H/P or p: No Changes General: Per HPI Objective Vitals Vital Signs Date Time Temp Pulse Resp B/P (MAP) Pulse Ox O2 Delivery O2 Flow Rate FiO2 05/18/25 10:36 112 05/18/25 08:15 18 98 50.0 80 05/18/25 07:59 Nasal Cannula 05/18/25 06:00 97.5 109/74 (86) 97.5 Intake/Output Intake and Output 05/18/25 07:00 Intake Total 1549.86 ml Output Total 300 ml Balance 1249.86 ml Intake Oral 0 ml IV Total 1549.86 ml Output Urine Total 300 ml # Bowel Movements 2 General Appearance: Alert, Oriented X3, Cooperative, mild distress HEENT: Atraumatic, PERRLA Lungs: Clear to auscultation, Normal air movement Cardiovascular: Normal S1, Normal S2, Other (ST depressions noted on bedside monitor. Twelve lead ECG reveals ST depression in lateral leads. Continues to be in AFib) Abdomen: Normal bowel sounds, Soft, No tenderness, No hepatospenomegaly Musculoskeletal: Normal sensory function Extremities: No clubbing, No cyanosis, No edema, Normal pulses, No tenderness/swelling Neuro: Normal speech Skin: Dry, Intact Psych/Mental Status: Mental status NL, Mood NL Medications Current Medications Medications Dose Ordered Sig/Royce Route Start Time Stop Time Status Last Admin Dose Admin Guaifenesin/ Dextromethorphan 10 ml Q4HP PRN PO 05/17/25 04:30 05/17/25 17:12 10 ML Ondansetron HCl 4 mg Q4HP PRN IV 05/17/25 04:30 05/18/25 08:51 4 MG Acetaminophen 650 mg Q6HP PRN PO 05/17/25 04:30 Nitroglycerin 0.4 mg Q5MINP PRN SL 05/17/25 04:30 Morphine Sulfate 2 mg Q30M PRN IV 05/17/25 04:30 Enoxaparin Sodium 70 mg Q12HR SC 05/17/25 22:00 UNV Norepinephrine Bitartrate 32 mg/ Sodium Chloride 250 ml @ 0.938 mls/ hr Q24H IV 05/17/25 10:30 Diagnostic Test (Pha) 1 strip ACHS 05/17/25 11:30 05/18/25 06:39 1 STRIP Insulin Human Regular HS SC 05/17/25 22:00 Insulin Human Regular AC SC 05/17/25 11:30 05/17/25 16:51 9 UNITS Dextrose 50 ml UD PRN IV 05/17/25 10:30 Levalbuterol HCl 1.25 mg Q6HR NEB 05/17/25 12:00 05/18/25 07:59 1.25 MG Enoxaparin Sodium 70 mg DAILY SC 05/18/25 10:00 Linezolid 300 ml @ 150 mls/hr Q12HR IV 05/17/25 22:00 05/18/25 08:55 150 MLS/HR Cefepime HCl 50 ml @ 12.5 mls/hr DAILY@1200 IV 05/18/25 12:00 Ipratropium [place] 0.5 mg Q6HR NEB 05/18/25 12:00 Acetylcysteine 100 mg Q6HR NEB 05/18/25 12:00 Pantoprazole Sodium 40 mg DAILY IV 05/19/25 10:00 UNV Laboratory Results Laboratory Tests 05/18/25 05:03 Chemistry Test 05/17/25 11:48 05/18/25 05:03 Calcium Level 9.0 mg/dL (8.7-10.4) 8.8 mg/dL (8.7-10.4) Magnesium Level 1.7 mg/dL (1.6-2.6) 2.1 mg/dL (1.6-2.6) Phosphorus Level 5.9 mg/dL (2.4-5.1) H Lipid panel Test 05/17/25 11:48 Cholesterol Level 97 mg/dL (< 200) HDL Cholesterol 40 mg/dL (40-59) Triglycerides Level 132 mg/dL (< 150) Cardiac Markers Test 05/18/25 05:03 B-Type Natriuretic Peptide 910.00 pg/mL (0-100) HgA1c, TSH Test 05/17/25 11:48 Hemoglobin A1c 6.0 % A1C (<5.7) H Urinalysis Test 05/17/25 11:32 Urine Color Yellow (Yellow) Urine Clarity Turbid (Clear) H Urine pH 5.5 (5.0-9.0) Urine Specific [place] 1.016 (1.001-1.035) Urine Protein 1+ (Negative) H Urine Ketones 1+ (Negative) H Urine Blood Negative /uL (Negative) Urine Nitrite Negative (Negative) Urine Bilirubin Negative (Negative) Urine Urobilinogen Normal mg/dL (Negative) Urine Leukocyte Esterase Negative /uL (Negative) Urine RBC 6 /hpf (0 - 4) Urine Microscopic WBC 4 /HPF (0-5) Urine Squamous Epithelial Cells Few /hpf (<5) Urine Bacteria Few /hpf (None Seen) H Urine Hyaline Casts Mod /lpf (0 - 2) Urine Mucus Few (None Seen) Urine Glucose Normal mg/dL (Normal) Blood Gas Results Test 05/18/25 09:42 Arterial Blood pH 7.360 (7.350-7.450) FiO2 % 32.0 Microbiology Microbiology Date/Time Source Procedure Growth Status 05/17/25 11:32 Urine - [place] Urine Culture - Preliminary No growth Resulted 05/17/25 10:18 Blood Blood Culture - Preliminary NO GROWTH AFTER 24 HOURS OF INCUBATION. Resulted Labs and/or images reviewed: Labs reviewed by me, Image(s) reviewed by me Assessment/Plan Assessment/Plan Impression: -sepsis -multifocal pneumonia, probable Gram-positive/Gram-negative etiology -AFib with RVR -acute on chronic systolic heart failure -acute hypoxic respiratory failure -NSTEMI, probably type secondary to sepsis -history of pulmonary embolism -acute kidney injury, vasomotor nephropathy - dyslipidemia -COPD -diabetes mellitus Plan: Events: Patient now on uric. Continues to be AFib. O2 supplementation at 2 L/min. ABG reviewed. Metabolic acidosis noted. Repeat troponin based on 12 lead ECG results. -antibiotic therapy: Continue cefepime and Zyvox -cardiology consultation: Recommendations reviewed -nephrology consultation : Recommendations appreciated -O2 supplementation to keep saturation greater than 92% -lynn cultures -rate control with digoxin. -bronchodilators, add Pulmicort -regular insulin sliding scale -repeat labs and chest x-ray In a.m. Critical care time spent with patient discussing and formulating plan of care: 40 minutes. This does not include time spent performing procedures. This medical document was created using an electronic medical record system with [employer] system. Although this document has been carefully reviewed, there may still be some phonetic and typographical errors. These areas are purely typographical due to imperfections of the software programs, and do not reflect any compromise in the patient's medical care. Plan discussed with: Patient, Spouse, Other (RN) My Orders Orders - BRIAN AGUIRRE NP Procedure Category Date Status Time Linezolid 600mg/300ml PHA 05/17/25 In Process (Zyvox) 22:00 Respiratory Culture MARYJANE 05/17/25 In Process W/ Gs 14:27 Nm Vq Scan NM 05/17/25 Logged 14:45 Chest Xray 1 View XY 05/19/25 Logged 05:00 Chest Xray 1 View XY 05/20/25 Logged 05:00 Chest Xray 1 View XY 05/21/25 Logged 05:00 Ipratropium Medneb PHA 05/18/25 In Process (Atrovent Medneb) 12:00 Acetylcysteine PHA 05/18/25 In Process Inhalation 10% 12:00 Troponin-I Hs LAB 05/18/25 Transmitted 11:14 Pantoprazole PHA 05/18/25 Transmitted (Protonix) 11:15 Kub Abdomen Single XY 05/18/25 Transmitted View 11:14 Date of Service: May 18, 2025 Billing Provider: BRIAN AGUIRRE NP Common Visit Codes: [id number] CARE 30-74 MIN BRIAN AGUIRRE NP May 18, 2025 11:20
--- NOTE | 2025-05-18 11:30 | DVH ---
INDICATION: KIARA TECHNIQUE: Multiple real-time sonographic images of the kidneys and bladder were obtained. COMPARISON: None FINDINGS: The right kidney measures 10 cm in length, which is normal in size. There is normal echogenicity of the right kidney. No hydronephrosis. The left kidney measures 10 cm in length, which is normal in size. There is normal echogenicity of the left kidney. No hydronephrosis. Nesbitt catheter within the bladder. IMPRESSION: 1. Normal sonographic appearance of the kidneys. No hydronephrosis. 2. Trace right pleural effusion. 4. Trace perinephric fluid on the right side.
[2025-05-18] MEDS: IPRATROPIUM BROM 0.5 MG/2.5ML INH SOL NEB SCH (12:01)
[2025-05-18] MEDS: ACETYLCYSTEINE 10 %(100MG/ML) SOL 4ML NEB SCH (12:01)
--- NOTE | 2025-05-18 12:06 | DVHCONRES ---
Date Seen: May 18, 2025 Resident Creating Document: NASRIN PATEL RESDIENT History of Present Illness This is a 84-year-old female with past medical history of CHF, AFib, pulmonary emboli, hypertension, dyslipidemia, hypothyroidism and COPD (on CPAP during night) who presented to the emergency room via EMS as a transfer from [facility] for higher level of care given trending troponin levels. The patient presented to the aforementioned facility via EMS with a chief complaint of generalized weakness associated with a productive cough for approximately one day. EN route to the hospital the patient was found to be tachycardic in an atrial fibrillation rhythm with a rapid ventricular rate and an associated heart rate was in the 160s bpm. She was medicated with metoprolol 5 mg IV x3 and metoprolol 25 mg p.o, started on an amiodarone drip including a bolus dosage, and administered 1 L of IV fluids initially and subsequently 40 mg of Lasix IV. Given non-sensitive troponin levels from 0.05 ng/mL followed by 0.20 ng/mL it was decided to transfer to [facility] for further evaluation. At time of assessment the patient complaint of increased lethargy, chest congestion, productive cough. She is currently on IVF at 100 mls/hr and an amiodarone drip at 1 mg/hr. 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 Anderson and undergoing a cardiac catheterization without catheter based intervention given normal coronaries in [place] in 06/2023. Allergies: Coded Allergies: Codeine (Verified Allergy, Unknown, 05/18/25) Penicillins (Verified Allergy, Unknown, 05/18/25) Uncoded Allergies: SEAFOOD (Allergy, Unknown, 05/18/25) Current Medications Current Medications Medications (Trade) Dose Ordered Sig/Royce Route PRN Reason Start Time Stop Time Status Last Admin Enoxaparin Sodium (Lovenox) 70 mg Q12HR SC 05/17/25 22:00 UNV Insulin Human Regular (InsuLIN R) HS SC 05/17/25 22:00 Levalbuterol HCl (Xopenex Medneb) 1.25 mg Q6HR NEB 05/17/25 12:00 05/18/25 07:59 Enoxaparin Sodium (Lovenox) 70 mg DAILY SC 05/18/25 10:00 Linezolid 300 ml @ 150 mls/hr Q12HR IV 05/17/25 22:00 05/18/25 08:55 Cefepime HCl 50 ml @ 12.5 mls/hr DAILY@1200 IV 05/18/25 12:00 Ipratropium [place] (Atrovent Medneb) 0.5 mg Q6HR NEB 05/18/25 12:00 Acetylcysteine (Mucomyst Inahalation 10%) 100 mg Q6HR NEB 05/18/25 12:00 Pantoprazole Sodium (Protonix) 40 mg DAILY IV 05/19/25 10:00 UNV Pantoprazole Sodium (Protonix) 40 mg DAILY IV 05/18/25 11:15 Review of Systems Patient seen and examined at the bedside. Patient is complaining of generalized weakness, mild mild shortness of breaths. Vital Signs Vital Signs Date Time Temp Pulse Resp B/P (MAP) Pulse Ox O2 Delivery O2 Flow Rate FiO2 05/18/25 10:36 112 05/18/25 08:15 18 98 50.0 80 05/18/25 07:59 Nasal Cannula 05/18/25 06:00 97.5 109/74 (86) 97.5 Physical Exam General Appearance: Alert, Oriented X3, Cooperative, in moderate respiratory distress HEENT: Atraumatic, PERRLA, EOMI, dry mucous membrane Respiratory: Bilateral lower zone crackles Cardiovascular: Regular rate, Normal S1, Normal S2, No murmurs, no chest wall tenderness Abdominal: Normal bowel sounds, Soft, No tenderness, No hepatospenomegaly, No masses Extremities: No clubbing, No cyanosis, No edema, Normal pulses, No tenderness/swelling Skin: No rashes, No breakdown, No significant lesion, decreased skin turgor Neuro: Normal gait, Normal speech, Strength at 5/5 X4 ext, Normal tone, Sensation intact, Cranial nerves 3-12 NL, Reflexes 2+ Psych/Mental Status: Mental status NL, Mood NL Labs/Diagnostic Data Labs Test 05/18/25 09:42 05/18/25 06:06 05/18/25 05:03 05/17/25 11:48 Range/Units Blood Gas Specimen Type Arterial Blood Gas Sample Site Left radial Blood Gas Patient Temperature 37.0 Arterial Blood Date Drawn [id number] Arterial Blood pH 7.360 7.350-7.450 Arterial Blood Partial Pressure CO2 25.1 L 32.0-45.0 mmHg Arterial Blood Partial Pressure O2 115.0 H 83.0-108.0 mmHg Arterial Blood HCO3 13.9 L 21.0-28.0 mmol/L Arterial Blood Oxygen Saturation 97.8 94.0-98.0 % Arterial Blood Base Excess -9.7 L -2.0-3.0 mmol/L Arterial Blood Oxyhemoglobin 96.8 94.0-98.0 % Arterial Blood Carboxyhemoglobin 0.6 0.5-1.5 % Arterial Blood Methemoglobin 0.4 0.0-1.5 % Demond Test Yes Blood Gas Total Hemoglobin 13.50 12.0-16.0 g/dL Blood Gas Liter Flow 3.00 Blood Gas Modality Nasal cannula FiO2 % 32.0 POC Glucose 140 H 70-106 mg/dl White Blood Count 24.1 H 4.4-10.8 10^3/uL Red Blood Count 4.73 4.0-5.20 10^6/uL Hemoglobin 12.4 12.2-16.2 g/dL Hematocrit 38.6 36.0-46.0 % Mean Corpuscular Volume 81.6 80.0-100.0 fL Mean Corpuscular Hemoglobin 26.3 L 28.0-32.0 pg Mean Corpuscular Hemoglobin Concent 32.2 32.0-36.0 g/dL Red Cell Distribution Width 14.4 H 11.8-14.3 % Platelet Count 141 140-450 10^3/uL Mean Platelet Volume 8.9 6.9-10.8 fL Neutrophils (%) (Auto) 89.5 H 37.0-80.0 % Lymphocytes (%) (Auto) 6.6 L 10.0-50.0 % Monocytes (%) (Auto) 3.6 0.0-12.0 % Eosinophils (%) (Auto) 0.1 0.0-7.0 % Basophils (%) (Auto) 0.2 0.0-2.0 % Neutrophils # (Auto) 21.6 H 1.6-8.6 10 ^3/uL Lymphocytes # (Auto) 1.6 0.4-5.4 10 ^3/uL Monocytes # (Auto) 0.9 0-1.3 10 ^3/uL Eosinophils # (Auto) 0 0-0.8 10 ^3/uL Basophils # (Auto) 0 0-0.2 10 ^3/uL Nucleated Red Blood Cells 0.1 % Sodium Level 137 136-145 mmol/L Potassium Level 4.3 3.5-5.1 mmol/L Chloride Level 100 98-107 mmol/L Carbon Dioxide Level 19 L 20-31 mmol/L Anion Gap 18 H 5-15 Blood Urea Nitrogen 37 H 9-23 mg/dL Creatinine 2.94 #H 0.550-1.02 mg/dL Glomerular Filtration Rate Calc 15 >90 mL/min BUN/Creatinine Ratio 12.6 10.0-20.0 Serum Glucose 138 H 74-106 mg/dL Uric Acid 11.4 H 3.1-7.8 mg/dL Calcium Level 8.8 8.7-10.4 mg/dL Phosphorus Level 5.9 H 2.4-5.1 mg/dL Magnesium Level 2.1 1.6-2.6 mg/dL B-Type Natriuretic Peptide 910.00 0-100 pg/mL Parathyroid Hormone (Intact) 870.1 H 18.4-80.1 pg/mL Hemoglobin A1c 6.0 H <5.7 % A1C Triglycerides Level 132 < 150 mg/dL Cholesterol Level 97 < 200 mg/dL LDL Cholesterol 33 < 100 mg/dL HDL Cholesterol 40 40-59 mg/dL Free Thyroxine (T4) Calculated 1.40 0.89-1.76 ng/dL Total Triiodothyronine (TT3) 0.42 L 0.60-1.81 ng/mL Test 05/17/25 11:32 05/17/25 11:09 05/17/25 03:58 05/17/25 02:05 Range/Units Urine Color Yellow Yellow Urine Clarity Turbid H Clear Urine pH 5.5 5.0-9.0 Urine Specific [place] 1.016 1.001-1.035 Urine Protein 1+ H Negative Urine Ketones 1+ H Negative Urine Blood Negative Negative /uL Urine Nitrite Negative Negative Urine Bilirubin Negative Negative Urine Urobilinogen Normal Negative mg/dL Urine Leukocyte Esterase Negative Negative /uL Urine RBC 6 0 - 4 /hpf Urine Microscopic WBC 4 0-5 /HPF Urine Squamous Epithelial Cells Few <5 /hpf Urine Bacteria Few H None Seen /hpf Urine Hyaline Casts Mod 0 - 2 /lpf Urine Mucus Few None Seen Urine Glucose Normal Normal mg/dL Influenza Type A Antigen Negative Negative Influenza Type B Antigen Negative Negative SARS-CoV-2 Antigen (Rapid) Negative NEGATIVE Lactic Acid Level 6.4 *H 0.4-2.0 mmol/L Thyroid Stimulating Hormone (TSH) 0.05 L 0.55-4.78 uIU/mL Random Vancomycin Level 14.6 H 5-10 ug/mL Troponin I High Sensitivity 417 *H </=34 ng/L Test 05/17/25 00:55 Range/Units Prothrombin Time 21.6 H 9.3-11.8 sec Prothrombin Time INR 2.20 H 0.9-1.15 Activated Partial Thromboplast Time 41.6 H 24.5-34.5 SEC D-Dimer, Quantitative 3.14 H 0.0-0.49 mg/L FEU Microbiology Date/Time Source Procedure Growth Status 05/17/25 11:32 Urine - [place] Urine Culture - Preliminary No growth Resulted 05/17/25 10:18 Blood Blood Culture - Preliminary NO GROWTH AFTER 24 HOURS OF INCUBATION. Resulted Assessment This is a 84-year-old female with past medical history of CHF, AFib, pulmonary emboli, hypertension, dyslipidemia, hypothyroidism and COPD (on CPAP during night) brought to the hospital due to generalized weakness, lethargy, decreased oral intake and shortness of breath. KIARA on CKD (baseline record not available), hemodynamic etiology in the setting of AFib with RVR/severe sepsis Secondary hyperparathyroidism Hyperphosphatemia Sepsis, due to pneumonia Possible acute on chronic systolic heart failure AFib with RVR Non ST-elevation [place] Hyperkalemia, resolved Plan/recommendation: (Dr. Mccain) * IV NS at 60 mL/hours * Check urine sodium, creatinine, and urine protein/creatinine ratio * Strict I&Os * Avoid nephrotoxic drugs * We will follow up with the patient Thank you for giving us the opportunity to take care of your patient. Please call back if you have any questions/concerns. Addendum Patient seen and examined, plan discussed with resident. Agree with above, we will follow closely Plan discussed with: Patient, Spouse, Other (RN) NASRIN PATEL May 18, 2025 12:06 AJVIER MCCAIN MD May 18, 2025 13:57
[2025-05-18] MEDS: PANTOPRAZOLE 40 MG/10 ML VIAL INJ IV SCH (12:42)
[2025-05-18] MEDS: CEFEPIME 2GM/50ML NS 50 ML IV SCH (13:03)
--- NOTE | 2025-05-18 13:29 | DVH ---
Bilateral lower extremity venous duplex Clinical History: Elevated d-dimer with hx of PE Comparison: None Findings/technique: Duplex Doppler evaluation of the deep venous systems of both lower extremities from the common femoral veins to the popliteal veins including color Doppler and spectral/pulsed waveform analysis was performed. RIGHT SIDE: The common femoral vein demonstrates appropriate compressibility and waveform variability. There is compressibility/patency of the great saphenous vein at the proximal thigh. The femoral vein demonstrates appropriate compressibility and waveform variability. The deep femoral vein demonstrates appropriate compressibility and waveform variability. The popliteal vein demonstrates appropriate compressibility and waveform variability. LEFT SIDE: The common femoral vein demonstrates appropriate compressibility and waveform variability. There is compressibility/patency of the great saphenous vein at the proximal thigh. The femoral vein demonstrates appropriate compressibility and waveform variability. The deep femoral vein demonstrates appropriate compressibility and waveform variability. The popliteal vein demonstrates appropriate compressibility and waveform variability. IMPRESSION: No right or left femoropopliteal venous thrombosis. If clinical concern/symptoms persist or worsen, short-interval follow-up study is suggested. JOSE GRIFFIN
--- NOTE | 2025-05-18 13:43 | DVH ---
EXAM: XY CHEST PORTABLE CLINICAL HISTORY: PNA TECHNIQUE: Single AP view of the chest WID: COMPARISON: XY CHEST XRAY 1 VIEW on DOS: 05/17/25, X FINDINGS: Lines and tubes: None Chest: Cardiomegaly without pulmonary vascular congestion. Calcified plaque projects over the aortic arch. Small bilateral pleural effusions. Patchy mixed airspace opacities bilaterally. No pneumothorax. The osseous structures are grossly intact. IMPRESSION: 1. Cardiomegaly and small bilateral pleural effusions. 2. Patchy bilateral airspace opacities which could be multifocal pneumonia and/or pulmonary edema.
--- NOTE | 2025-05-18 13:45 | DVH ---
Exam: XY KUB ABDOMEN SINGLE VIEW Indication: Generalized abdominal pain Comparison: None Technique: 1 radiographic view of the abdomen. Findings: There is scattered gas distention of large bowel loops. Scattered gas throughout nondilated small bowel. Small bilateral pleural effusions. Patchy bilateral mixed airspace opacities. No abnormal calcifications. Degenerative changes of the lower thoracic and lumbar spine and degenerative narrowing of the bilateral hips. Bony demineralization. No radiopaque foreign body. Impression: 1. Mild gas distention of large bowel which could be ileus. 2. No small bowel obstruction.
[2025-05-18] MEDS: ENOXAPARIN SOD 80 MG/0.8ML SYRINGE SC SCH (13:53)
--- NOTE | 2025-05-18 16:51 | DVH ---
Indication: n/v, ileus Technique: CT axial images of the chest, abdomen and pelvis are obtained without contrast. Coronal and sagittal reformats were obtained. Radiation Dose Information: CTDI volume is 10.58 mGy. Dose-length product is 717.58 mGy*cm Comparison: CT [id number] W/O on DOS: 05/16/25 FINDINGS: There is limited interpretation of the chest, abdomen and pelvis without administration of intravenous contrast. The trachea is patent. No pneumothorax. Multifocal pulmonary airspace consolidation bilaterally. Small bilateral pleural effusions. Pulmonary bronchiectatic changes bilaterally. Heart is enlarged. Extensive mediastinal lymphadenopathy including subcarinal lymph node measuring 1.6 cm, pretracheal lymph node measuring 1.5 cm aortopulmonary lymph node measuring 1.7 cm. No supraclavicular or axillary lymphadenopathy. Adrenal glands, spleen unremarkable in shape. Pancreatic fatty infiltration. Liver unremarkable in shape. Cholelithiasis. The kidneys demonstrate no hydronephrosis, nephrolithiasis. Moderate size hiatal hernia. Small bowel loops are normal in caliber. Thickening of the rectosigmoid colon wall. Moderate volume stool in the colon. No secondary signs for appendicitis. Moderate distention large pelvic Abdominal aortic atherosclerotic disease. Bladder decompressed by Nesbitt catheter. No free pelvic fluid. Presacral edema. Soft tissue edema/ anasarca. Moderate bilateral sacroiliac degenerative joint disease. No aggressive osseous process. Moderate thoracolumbar degenerative disc disease and facet hypertrophic changes. IMPRESSION: Limited evaluation without contrast. Multifocal/diffuse pulmonary airspace consolidation , which is likely related to infection/pneumonia. Follow-up to resolution to exclude underlying mass /malignancy. Bilateral pulmonary bronchiectatic changes. Small bilateral pleural effusions. Rectal wall thickening and surrounding stranding. Correlate for proctocolitis, underlying rectal mass. Extensive mediastinal lymphadenopathy which could be secondary to underlying infection with other considerations including inflammatory, neoplastic / metastatic processes. Correlate clinically. No evidence for small bowel obstruction. Moderate distention of the large bowel loops, which could represent ileus, Cardiomegaly. Atherosclerotic disease. Other findings as described
[2025-05-18] MEDS: MEROPENEM 500MG IVPB 50 ML IV SCH (21:39)
[2025-05-19] VITALS (51 sets, daily range): BP systolic 110–150; BP diastolic 63–85; PULSE 90–127; RESP 14–29; TEMP 97.4–98.5; O2SAT 93–100
--- NOTE | 2025-05-19 05:05 | DVH ---
CHEST RADIOGRAPH Indication: pna Technique: Single frontal view of the chest was obtained COMPARISON: XY CHEST PORTABLE on DOS: 05/18/25, XY CHEST XRAY 1 VIEW on DOS: 05/17/25, XR CHEST 1 VIEW on DOS: 05/16/25, XR CHEST 2 VIEWS on DOS: 11/27/24, CT CHEST on DOS: 06/10/24 FINDINGS: Lines and Tubes: None Lungs: Increased multifocal airspace disease most prominent in the bilateral lower lobes. Pleura: Trace bilateral pleural effusions, [id number]. No pneumothorax. Cardiomediastinal contours: Cardiomegaly. Bones: Unremarkable IMPRESSION: Increased multifocal airspace disease most prominent in the bilateral lower lobes. Trace bilateral pleural effusions, [id number]-right.
[2025-05-19 05:55] LABS: Hematocrit 39.5 % (36.0-46.0); Hemoglobin 13.1 g/dL (12.2-16.2); Mean Corpuscular Hemoglobin 27.0 pg (28.0-32.0); Mean Corpuscular Volume 81.3 fL (80.0-100.0); Nucleated Red Blood Cells % 0.1 %
[2025-05-19 06:08] LABS: Anion Gap 17 (5-15); BUN/Creatinine Ratio 12.5 (10.0-20.0); Chloride 101 mmol/L (98-107); Potassium 4.3 mmol/L (3.5-5.1)
[2025-05-19 06:10] LABS: Bilirubin, Total 0.9 mg/dL (0.2-1.0)
[2025-05-19 06:11] LABS: Albumin 2.9 g/dL (3.2-4.8); Alkaline Phosphatase 182 U/L (46-116); Blood Urea Nitrogen 47 mg/dL (9-23); Calcium 8.0 mg/dL (8.7-10.4); Carbon Dioxide 16 mmol/L (20-31); Glucose 123 mg/dL (74-106); Sodium 134 mmol/L (136-145); Total Protein 5.4 g/dL (5.7-8.2)
[2025-05-19 06:25] LABS: Alanine Aminotransferase 3349 U/L (7-40)
--- NOTE | 2025-05-19 07:29 | ECG ---
[facility] Test Date: 2025-05-18 Test Time: 10:55:00 Pat Name: KELSEY LAI Department: Respiratoy Room: [address] [place] [address] Gender: F [employer] Office: : 1940 Requested By: BRIAN AGUIRRE Order Number: [id number] Reading MD: Keagan Knight Measurements Intervals Pitman Rate: 120 P: 0 IN: 0 QRS: 35 QRSD: 73 T: 177 QT: 393 QTc: 556 Interpretive Statements Atrial fibrillation Anterolateral infarct, age indeterminate Abnormal T, consider ischemia, lateral leads Prolonged QT interval Electronically Signed On 05-21-2025 15:32:31 PST by Keagan Knight Please click the below link to view image of tracing.
[2025-05-19 07:39] LABS: Protein, Urine 155.9 mg/dL (1-14)
--- NOTE | 2025-05-19 08:27 | DVHPN2 ---
Progress Note Date Seen: May 19, 2025 Resident Creating Document: NASRIN PATEL RESDIENT Medical Necessity Reason Pt with a Central, PICC or Fol: No Subjective Review of Systems Patient seen and examined at the bedside. Patient is clinically better, and feeling better. Objective vital signs Vital Sign Date Time Temp Pulse Resp B/P (MAP) Pulse Ox O2 Delivery O2 Flow Rate FiO2 05/19/25 07:00 119 16 123/72 (89) 95 05/19/25 06:00 Room Air 05/19/25 06:00 0 21 05/19/25 04:00 97.4 97.4 Total Intake and Output 05/18/25 05/18/25 05/19/25 15:00 23:00 07:00 Intake Total 360 ml 599 ml 876 ml Output Total 55 ml 120 ml Balance 360 ml 544 ml 756 ml medications Current Medications Medications Dose Ordered Sig/Royce Route Start Time Stop Time Status Last Admin Dose Admin Guaifenesin/ Dextromethorphan 10 ml Q4HP PRN PO 05/17/25 04:30 05/17/25 17:12 10 ML Ondansetron HCl 4 mg Q4HP PRN IV 05/17/25 04:30 05/19/25 06:12 4 MG Acetaminophen 650 mg Q6HP PRN PO 05/17/25 04:30 Nitroglycerin 0.4 mg Q5MINP PRN SL 05/17/25 04:30 Morphine Sulfate 2 mg Q30M PRN IV 05/17/25 04:30 Enoxaparin Sodium 70 mg Q12HR SC 05/17/25 22:00 UNV Norepinephrine Bitartrate 32 mg/ Sodium Chloride 250 ml @ 0.938 mls/ hr Q24H IV 05/17/25 10:30 Diagnostic Test (Pha) 1 strip ACHS 05/17/25 11:30 05/19/25 06:16 1 STRIP Insulin Human Regular HS SC 05/17/25 22:00 Insulin Human Regular AC SC 05/17/25 11:30 05/18/25 17:59 3 UNITS Dextrose 50 ml UD PRN IV 05/17/25 10:30 Levalbuterol HCl 1.25 mg Q6HR NEB 05/17/25 12:00 05/19/25 06:00 1.25 MG Enoxaparin Sodium 70 mg DAILY SC 05/18/25 10:00 05/18/25 13:53 70 MG Linezolid 300 ml @ 150 mls/hr Q12HR IV 05/17/25 22:00 05/18/25 21:40 150 MLS/HR Ipratropium [place] 0.5 mg Q6HR NEB 05/18/25 12:00 05/19/25 06:00 0.5 MG Acetylcysteine 100 mg Q6HR NEB 05/18/25 12:00 05/19/25 06:00 100 MG Pantoprazole Sodium 40 mg DAILY IV 05/19/25 10:00 UNV Pantoprazole Sodium 40 mg DAILY IV 05/18/25 11:15 05/18/25 12:42 40 MG Meropenem 50 ml @ 17 mls/hr Q12HR IV 05/18/25 22:00 05/18/25 21:39 17 MLS/HR Examination General Appearance: Alert, Oriented X3, Cooperative, in moderate respiratory distress HEENT: Atraumatic, PERRLA, EOMI, dry mucous membrane Respiratory: Bilateral lower zone crackles Cardiovascular: Regular rate, Normal S1, Normal S2, No murmurs, no chest wall tenderness Abdominal: Normal bowel sounds, Soft, No tenderness, No hepatospenomegaly, No masses Extremities: No clubbing, No cyanosis, No edema, Normal pulses, No tenderness/swelling Skin: No rashes, No breakdown, No significant lesion, decreased skin turgor Neuro: Normal gait, Normal speech, Strength at 5/5 X4 ext, Normal tone, Sensation intact, Cranial nerves 3-12 NL, Reflexes 2+ Psych/Mental Status: Mental status NL, Mood NL laboratory and microbiology Laboratory Tests 05/19/25 05:13 Test 05/19/25 05:13 Range/Units Serum Glucose 123 H 74-106 mg/dL Microbiology Date/Time Source Procedure Growth Status 05/17/25 23:45 Nose MRSA Screen - Final Complete 05/17/25 19:06 Sputum Gram Stain - Final Resulted 05/17/25 19:06 Sputum Respiratory Culture - Preliminary No growth Resulted 05/17/25 11:32 Urine - [place] Urine Culture - Preliminary No growth Resulted 05/17/25 10:18 Blood Blood Culture - Preliminary NO GROWTH AFTER 24 HOURS OF INCUBATION. Resulted Problem List/Assessment/Plan Problem List/Assessment/Plan This is a 84-year-old female with past medical history of CHF, AFib, pulmonary emboli, hypertension, dyslipidemia, hypothyroidism and COPD (on CPAP during night) brought to the hospital due to generalized weakness, lethargy, decreased oral intake and shortness of breath. KIARA on CKD (baseline record not available), hemodynamic etiology in the setting of AFib with RVR/severe sepsis Secondary hyperparathyroidism Hyperphosphatemia shock liver Sepsis, due to pneumonia Possible acute on chronic systolic heart failure AFib with RVR Non ST-elevation NH Hyperkalemia, resolved Liver cirrhosis Plan/recommendation: (Dr. Mccain) * Kidney function has worsened * IV NS 50ml/hr * Strict I&Os * Avoid nephrotoxic drugs * We will follow up with the patient Thank you for giving us the opportunity to take care of your patient. Please call back if you have any questions/concerns. Addendum Patient seen and examined, plan discussed with resident. Agree with above, we will follow closely ns iv at 50cc/hr shock liver noted d/w daughter, Plan discussed with: Patient, Spouse, Other (RN) My Orders My Orders Orders - NASRIN PATEL RESIRIS Procedure Category Date Status Time Kidney US 05/18/25 Resulted 09:23 Strict I & O TELLY 05/18/25 In Process 09:23 Critical Care Time (mins): 48 NASRIN PATEL May 19, 2025 08:27 JAVIER MCCAIN MD May 19, 2025 16:54
[2025-05-19] MEDS: METOCLOPRAMIDE HCL 5MG/ml INJ 2ml VIAL IV SCH (09:17)
[2025-05-19] MEDS ORDERED: PANTOPRAZOLE 40 MG/10 ML VIAL INJ IV SCH (10:00)
[2025-05-19 10:13] LABS: Hepatitis B Surface Antigen Negative (Negative)
[2025-05-19 10:32] LABS: Hepatitis C Antibody Negative (Negative)
--- NOTE | 2025-05-19 10:37 | DVHPN2 ---
Subjective Continues to report having generalized weakness. Reviewed: Care Plan, H&P, Labs, Medications, Previous Orders Changes from previous H/P or p: No Changes General: Per HPI Objective Vitals Vital Signs Date Time Temp Pulse Resp B/P (MAP) Pulse Ox O2 Delivery O2 Flow Rate FiO2 05/19/25 10:17 106 16 98 05/19/25 10:00 Room Air 0.0 05/19/25 10:00 21 05/19/25 09:00 120/78 (92) 05/19/25 07:30 97.5 97.5 Intake/Output Intake and Output 05/19/25 07:00 Intake Total 1835 ml Output Total 175 ml Balance 1660 ml Intake Oral 150 ml IV Total 1685 ml Output Urine Total 155 ml Emesis 20 ml # Bowel Movements 1 General Appearance: Alert, Oriented X3, Cooperative, mild distress HEENT: Atraumatic, PERRLA Lungs: Clear to auscultation, Normal air movement Cardiovascular: Normal S1, Normal S2, Other (ST depressions noted on bedside monitor. Twelve lead ECG reveals ST depression in lateral leads. Continues to be in AFib) Abdomen: Normal bowel sounds, Soft, No tenderness, No hepatospenomegaly Musculoskeletal: Normal sensory function Extremities: No clubbing, No cyanosis, No edema, Normal pulses, No tenderness/swelling Neuro: Normal speech Skin: Dry, Intact Psych/Mental Status: Mental status NL, Mood NL Medications Current Medications Medications Dose Ordered Sig/Royce Route Start Time Stop Time Status Last Admin Dose Admin Guaifenesin/ Dextromethorphan 10 ml Q4HP PRN PO 05/17/25 04:30 05/17/25 17:12 10 ML Ondansetron HCl 4 mg Q4HP PRN IV 05/17/25 04:30 05/19/25 06:12 4 MG Acetaminophen 650 mg Q6HP PRN PO 05/17/25 04:30 Nitroglycerin 0.4 mg Q5MINP PRN SL 05/17/25 04:30 Morphine Sulfate 2 mg Q30M PRN IV 05/17/25 04:30 Enoxaparin Sodium 70 mg Q12HR SC 05/17/25 22:00 UNV Norepinephrine Bitartrate 32 mg/ Sodium Chloride 250 ml @ 0.938 mls/ hr Q24H IV 05/17/25 10:30 Diagnostic Test (Pha) 1 strip ACHS 05/17/25 11:30 05/19/25 06:16 1 STRIP Insulin Human Regular HS SC 05/17/25 22:00 Insulin Human Regular AC SC 05/17/25 11:30 05/18/25 17:59 3 UNITS Dextrose 50 ml UD PRN IV 05/17/25 10:30 Levalbuterol HCl 1.25 mg Q6HR NEB 05/17/25 12:00 05/19/25 10:17 1.25 MG Enoxaparin Sodium 70 mg DAILY SC 05/18/25 10:00 05/19/25 08:46 70 MG Linezolid 300 ml @ 150 mls/hr Q12HR IV 05/17/25 22:00 05/19/25 08:46 150 MLS/HR Ipratropium [place] 0.5 mg Q6HR NEB 05/18/25 12:00 05/19/25 10:17 0.5 MG Acetylcysteine 100 mg Q6HR NEB 05/18/25 12:00 05/19/25 10:17 100 MG Pantoprazole Sodium 40 mg DAILY IV 05/19/25 10:00 UNV Pantoprazole Sodium 40 mg DAILY IV 05/18/25 11:15 05/19/25 08:46 40 MG Meropenem 50 ml @ 17 mls/hr Q12HR IV 05/18/25 22:00 05/18/25 21:39 17 MLS/HR Metoclopramide HCl 10 mg Q12HR IV 05/19/25 10:00 05/20/25 10:01 05/19/25 09:17 10 MG Laboratory Results Laboratory Tests 05/19/25 05:13 Chemistry Test 05/19/25 05:13 Albumin 2.9 g/dL (3.2-4.8) L Calcium Level 8.0 mg/dL (8.7-10.4) L Total Protein 5.4 g/dL (5.7-8.2) L Lipid panel Test 05/19/25 05:13 Lipase 38 U/L (12-53) LFT Test 05/19/25 05:13 Alanine Aminotransferase (ALT) 3349 U/L (7-40) H Alkaline Phosphatase 182 U/L (46-116) H Aspartate Amino Transferase (AST) 2668 U/L (13-40) H Total Bilirubin 0.9 mg/dL (0.2-1.0) Urinalysis Test 05/17/25 11:32 05/19/25 06:48 Urine Color Yellow (Yellow) Urine Clarity Turbid (Clear) H Urine pH 5.5 (5.0-9.0) Urine Specific [place] 1.016 (1.001-1.035) Urine Protein 1+ (Negative) H Urine Ketones 1+ (Negative) H Urine Blood Negative /uL (Negative) Urine Nitrite Negative (Negative) Urine Bilirubin Negative (Negative) Urine Urobilinogen Normal mg/dL (Negative) Urine Leukocyte Esterase Negative /uL (Negative) Urine RBC 6 /hpf (0 - 4) Urine Microscopic WBC 4 /HPF (0-5) Urine Squamous Epithelial Cells Few /hpf (<5) Urine Bacteria Few /hpf (None Seen) H Urine Hyaline Casts Mod /lpf (0 - 2) Urine Mucus Few (None Seen) Urine Glucose Normal mg/dL (Normal) Urine Creatinine 82.26 mg/dL (30.0-125.0) Urine Protein/Creatinine Ratio 1.90 Urine Sodium 24 mmol/L (40-220) L Urine Total Protein 155.9 mg/dL (1-14) H Microbiology Microbiology Date/Time Source Procedure Growth Status 05/17/25 23:45 Nose MRSA Screen - Final Complete 05/17/25 19:06 Sputum Gram Stain - Final Resulted 05/17/25 19:06 Sputum Respiratory Culture - Preliminary Resulted 05/17/25 11:32 Urine - [place] Urine Culture - Preliminary Resulted 05/17/25 10:18 Blood Blood Culture - Preliminary NO GROWTH AFTER 24 HOURS OF INCUBATION. Resulted Labs and/or images reviewed: Labs reviewed by me, Image(s) reviewed by me Assessment/Plan Assessment/Plan Impression: -sepsis -multifocal pneumonia, probable Gram-positive/Gram-negative etiology -AFib with RVR -acute on chronic systolic heart failure -acute hypoxic respiratory failure -NSTEMI, probably type secondary to sepsis -history of pulmonary embolism -acute kidney injury, vasomotor nephropathy - dyslipidemia -COPD -diabetes mellitus Plan: Events: Minimal urine output. Continues to be acidotic. CT of chest abdomen and pelvis reviewed. GI consultation placed. Continue clear liquid diet. Start gentle IV hydration with sodium bicarbonate infusion -antibiotic therapy: Continue Meropenem and Zyvox -cardiology consultation: Recommendations reviewed -nephrology consultation : Recommendations appreciated -O2 supplementation to keep saturation greater than 92% -lynn cultures -bronchodilators, add Pulmicort -regular insulin sliding scale -repeat labs and chest x-ray In a.m. -transfer to ICU Critical care time spent with patient discussing and formulating plan of care: 40 minutes. This does not include time spent performing procedures. This medical document was created using an electronic medical record system with [employer] dictation system. Although this document has been carefully reviewed, there may still be some phonetic and typographical errors. These areas are purely typographical due to imperfections of the software programs, and do not reflect any compromise in the patient's medical care. Plan discussed with: Patient, Other (RN) My Orders Orders - BRIAN AGUIRRE NP Procedure Category Date Status Time Ipratropium Medneb PHA 05/18/25 In Process (Atrovent Medneb) 12:00 Acetylcysteine PHA 05/18/25 In Process Inhalation 10% 12:00 Pantoprazole PHA 05/18/25 In Process (Protonix) 11:15 Kub Abdomen Single XY 05/18/25 Resulted View 11:14 Meropenem 500mg Ivpb PHA 05/18/25 In Process (Merrem 500mg/50ml 22:00 Chst Ab Pel Wo Con-No CT 05/18/25 Resulted Iv/Oral 14:55 * [facility] Director Outpatient Services CONS 05/19/25 Transmitted 08:28 Metoclopramide PHA 05/19/25 In Process Injection (Reglan 10:00 Comprehensive LAB 05/20/25 Verified Metabolic Panel 05:00 Comprehensive LAB 05/21/25 Verified Metabolic Panel 05:00 Comprehensive LAB 05/22/25 Verified Metabolic Panel 05:00 Complete Blood Count LAB 05/20/25 Verified 05:00 Complete Blood Count LAB 05/21/25 Verified 05:00 Complete Blood Count LAB 05/22/25 Verified 05:00 Transfer Orders XFER 05/19/25 Transmitted 08:28 Clear Liq Diet DIET 05/19/25 Transmitted Lunch Date of Service: May 19, 2025 Billing Provider: BRIAN AGUIRRE NP Common Visit Codes: [id number] CARE 30-74 MIN BRIAN AGUIRRE NP May 19, 2025 10:37
--- NOTE | 2025-05-19 10:47 | MEDREC ---
[facility] ASP Intervention Section I [facility] ASP Intervention: Review courses of therapy (MRSA nares negative. MRSA nares has a high negative predictive value for MRSA pneumonia. May consider discontinuing Linezolid for MRSA coverage if/when clinically appropriate. Also note that PLTs are currently downtrending, 132 today from 274 on 05/17/25.) [facility] RESIDENT May 19, 2025 10:47
--- NOTE | 2025-05-19 10:58 | DVHPN2 ---
Consult Progress Note Date Seen: May 19, 2025 Subjective Other Systems: No overnight cardiac events reported Objective vital signs Vital Sign Date Time Temp Pulse Resp B/P (MAP) Pulse Ox O2 Delivery O2 Flow Rate FiO2 05/19/25 10:27 116 16 100 05/19/25 10:00 Room Air 0.0 05/19/25 10:00 21 05/19/25 09:00 120/78 (92) 05/19/25 07:30 97.5 97.5 Total Intake and Output 05/18/25 05/18/25 05/19/25 15:00 23:00 07:00 Intake Total 360 ml 599 ml 876 ml Output Total 55 ml 120 ml Balance 360 ml 544 ml 756 ml medications Current Medications Medications Dose Ordered Sig/Royce Route Start Time Stop Time Status Last Admin Dose Admin Guaifenesin/ Dextromethorphan 10 ml Q4HP PRN PO 05/17/25 04:30 05/17/25 17:12 10 ML Ondansetron HCl 4 mg Q4HP PRN IV 05/17/25 04:30 05/19/25 06:12 4 MG Acetaminophen 650 mg Q6HP PRN PO 05/17/25 04:30 Nitroglycerin 0.4 mg Q5MINP PRN SL 05/17/25 04:30 Morphine Sulfate 2 mg Q30M PRN IV 05/17/25 04:30 Enoxaparin Sodium 70 mg Q12HR SC 05/17/25 22:00 UNV Norepinephrine Bitartrate 32 mg/ Sodium Chloride 250 ml @ 0.938 mls/ hr Q24H IV 05/17/25 10:30 Diagnostic Test (Pha) 1 strip ACHS 05/17/25 11:30 05/19/25 06:16 1 STRIP Insulin Human Regular HS SC 05/17/25 22:00 Insulin Human Regular AC SC 05/17/25 11:30 05/18/25 17:59 3 UNITS Dextrose 50 ml UD PRN IV 05/17/25 10:30 Levalbuterol HCl 1.25 mg Q6HR NEB 05/17/25 12:00 05/19/25 10:17 1.25 MG Enoxaparin Sodium 70 mg DAILY SC 05/18/25 10:00 05/19/25 08:46 70 MG Linezolid 300 ml @ 150 mls/hr Q12HR IV 05/17/25 22:00 05/19/25 08:46 150 MLS/HR Ipratropium [place] 0.5 mg Q6HR NEB 05/18/25 12:00 05/19/25 10:17 0.5 MG Acetylcysteine 100 mg Q6HR NEB 05/18/25 12:00 05/19/25 10:17 100 MG Pantoprazole Sodium 40 mg DAILY IV 05/19/25 10:00 UNV Pantoprazole Sodium 40 mg DAILY IV 05/18/25 11:15 05/19/25 08:46 40 MG Meropenem 50 ml @ 17 mls/hr Q12HR IV 05/18/25 22:00 05/18/25 21:39 17 MLS/HR Metoclopramide HCl 10 mg Q12HR IV 05/19/25 10:00 05/20/25 10:01 05/19/25 09:17 10 MG Examination: GENERAL:Abnormal (Letahrgic), LUNGS:Abnormal (Coarse bilaterally), CVS:Abnormal (A-fib with RVR up to 120s bpm), NEURO:Normal laboratory and microbiology Laboratory Tests 05/19/25 05:13 Test 05/19/25 05:13 Range/Units Serum Glucose 123 H 74-106 mg/dL Problem List/Assessment/Plan Problem List/Assessment/Plan Sepsis with multifocal PNA Acute on chronic hypoxic respiratory failure Acute on chronic decompensated HFrEF, NYHA Class IV Non-ischemic cardiomyopathy (-[facility] in 2022) Likely persistent AFib with RVR, stage IIIB (on Eliquis/metoprolol therapy) COPD/emphysema exacerbation NSTEMI, likely type 2 secondary to above Hx of PE in 2022 with elevated d-dimer, rule out PE Pulmonary hypertension, moderate degree Tricuspid regurgitation, moderate degree Severe aortic sclerosis rule out severe (iae-seve-fyg gradient) Pre-diabetes mellitus Thyroid disease Dyslipidemia Shocked liver Acute kidney injury Hyperparathyroidism ?secondary * Transthoracic echocardiogram revealed LVEF 25% with RV dysfunction, biatrial enlargement, severe aortic sclerosis cannot rule out given low-flow status, moderate tricuspid regurgitation * Twelve-lead electrocardiograms revealed an atrial fibrillation rhythm with intermittent RVR and no ST-T wave segment changes suggestive of acute ischemia * CXR revealed cardiomegaly with mild pulmonary vascular congestion and small bilateral pleural effusions. Mild bilateral lower zone pulmonary airspace disease * Serial troponin levels flat at 400s ng/L x2 * [facility]: * WBC 22.0, BNP 573, Troponin up to 0.20 ng/mL, TSH 0.03, lactic acid 2.7, D- dimer 0.98 * CXR 1 view: cardiomegaly with increasing interstitial markings especially in the middle HS. Infection versus congestive failure or bolus in the differential * CT head w/o contrast: No CT evidence of an acute intracranial abnormality. Intermediate areas of extensive soft tissue emphysema tracking along the cavernous sinuses and likely along the venous structures likely related to iatrogenic injection of the air and less likely related to soft tissue infection. Correlate with clinical exam * CT chest-abdomen pelvis w/o contrast: Small bilateral pleural effusions with bilateral lower lobe predominant cylindrical bronchiectasis and peribronchial thickening. Patchy areas of consolidation with marginal ground-glass versus masses. Prominent mediastinal lymphadenopathy. Large amount of stool burden with in the lower rectum. Broad differential includes infection however neoplastic disease not excluded mediastinal lymphadenopathy might be reactive versus neoplastic Plan/Recommendation (Dr. Swanson) The patient can benefit from an eventual dobutamine stress echocardiogram to rule out severe aortic valve stenosis (LF-LG). In the meantime, continue rate control with digoxin EOD. Continue therapeutic Lovenox and transition to DOAC when appropriate ([id number] Score 5 points, HAS-BLED Score 1 point). Initiate quad concentration vasopressor for hemodynamic support as necessary. Monitor electrolytes, renal function, and liver enzymes closely. Strict I&Os. Continue Nephrology & GI recommendations. Consider pulmonology consultation. Abx therapy per primary care team. Further orders per clinical course. Thank you for allowing us to participate in this patient's care. Please call if you have any questions or concerns. Critical care time: 30 min. This medical document was created using an electronic medical record system with voice recognition software and computerized dictation system. Although this document has been carefully reviewed, there might still be some phonetic and typographical errors. Occasional wrong-word or ``sound-alike substitutions may have occurred due to the inherent limitations of voice recognition software. These areas are purely typographical due to imperfections of the software programs and do not reflect any compromise in the patient's medical care. Please read the chart carefully and recognize, using context, where these substitutions have occurred. Plan discussed with: Patient, Other Date of Service: May 19, 2025 Billing Provider: OLGA GILL Cardiology Common Codes: [id number] CARE 30-74 MIN OLGA GILL May 19, 2025 10:58
--- NOTE | 2025-05-19 11:14 | DVH ---
Technique: Real-time ultrasound imaging of the right upper quadrant of the abdomen was performed with grayscale and color Doppler. Indication: cholelithiasis, transaminitis Comparison: None Findings: Liver measures 13.8 cm. It is increased in echogenicity and echotexture without focal mass. Liver capsule nodular morphology. Portal vein is normal in caliber and demonstrates normal hepatopetal flow. Bilateral pleural effusions. Gallbladder demonstrates no evidence for cholelithiasis. Gallbladder is distended. There is no pericholecystic fluid. The wall thickness is normal. The common bile duct measures 4 mm. No intrahepatic biliary ductal dilatation. Impression: Cirrhotic morphology appearance of the liver. Bilateral pleural effusions Distended gallbladder.
[2025-05-19] MEDS: SODIUM BICARB 50mEq/50ml Vial 50 ML in SOD CHL 0.45% 1,000 ML IV ONE (13:19)
--- NOTE | 2025-05-19 15:18 | DVHCONRES ---
Date Seen: May 19, 2025 Resident Creating Document: JHAJJPUSHPAYASHET RESIDENT Referring Physician DMITRY Pastor Reason for Consultation Ileus, transaminitis History of Present Illness Patient is a 84-year-old female with a medical history of COPD, emphysema, congestive heart failure, atrial fibrillation, pulmonary emboli in 06/2023, hypertension, hypothyroidism, ?liver cirrhosis was brought to the hospital from [facility] for elevated troponin levels. Patient was in the previous facility because of generalized weakness, coughing up mucus. Patient was initially septic with the elevated WBC count and lactic acid, and KIARA with decreased urine output. GI were consulted because patient had possible ileus as per the CT abdomen pelvis, rectal wall thickening and surrounding stranding, moderate distention of the large bowel loops with likely represented ileus and elevated transaminase levels Past Medical History As per HPI Past Surgical History Denies Family History Denies Social History Denies smoking, alcohol, drug use Allergies: Coded Allergies: Codeine (Verified Allergy, Unknown, 05/18/25) Penicillins (Verified Allergy, Unknown, 05/18/25) Uncoded Allergies: SEAFOOD (Allergy, Unknown, 05/18/25) Current Medications Current Medications Medications (Trade) Dose Ordered Sig/Royce Route PRN Reason Start Time Stop Time Status Last Admin Pantoprazole Sodium (Protonix) 40 mg DAILY IV 05/19/25 10:00 UNV Meropenem 50 ml @ 17 mls/hr Q12HR IV 05/18/25 22:00 05/19/25 11:04 Metoclopramide HCl (Reglan Injection) 10 mg Q12HR IV 05/19/25 10:00 05/20/25 10:01 05/19/25 09:17 Digoxin (Lanoxin Injection) 125 mcg EOD IV 05/20/25 10:00 Enoxaparin Sodium (Lovenox) 60 mg DAILY SC 05/20/25 10:00 Review of Systems Patient seen and examined with the bedside denies abdominal pain, nausea or vomiting Reported small brown bowel movement today Passing flatus Patient did not report having blood in the stool Vital Signs Vital Signs Date Time Temp Pulse Resp B/P (MAP) Pulse Ox O2 Delivery O2 Flow Rate FiO2 05/19/25 13:00 104 18 113/65 (81) 96 05/19/25 12:00 97.9 97.9 05/19/25 12:00 Room Air* 0 21 Physical Exam Gen - no pallor, mild scleral icterus Skin - Patients skin is warm and dry. HEENT - normocephalic, atraumatic, dry mucous membranes. Neck - supple, no lymphadenopathy Pulmonary - B/L decreased breath sounds in the bases with the crackles cardiovascular - regular S1,S2 heard GI - soft nontender abdomen. Bowel sounds normoactive. Neurological - Patient is alert and oriented x3 and is following commands Labs/Diagnostic Data Labs Test 05/19/25 11:07 05/19/25 06:48 05/19/25 05:18 05/19/25 05:13 Range/Units POC Glucose 180 H 70-106 mg/dl Urine Creatinine 82.26 30.0-125.0 mg/dL Urine Protein/Creatinine Ratio 1.90 Urine Sodium 24 L 40-220 mmol/L Urine Total Protein 155.9 H 1-14 mg/dL Hepatitis A IgM Antibody Negative Hepatitis B Surface Antigen Negative Negative Hepatitis B Core IgM Antibody Negative Negative Hepatitis C Antibody Negative Negative White Blood Count 18.0 #H 4.4-10.8 10^3/uL Red Blood Count 4.85 4.0-5.20 10^6/uL Hemoglobin 13.1 12.2-16.2 g/dL Hematocrit 39.5 36.0-46.0 % Mean Corpuscular Volume 81.3 80.0-100.0 fL Mean Corpuscular Hemoglobin 27.0 L 28.0-32.0 pg Mean Corpuscular Hemoglobin Concent 33.2 32.0-36.0 g/dL Red Cell Distribution Width 14.5 H 11.8-14.3 % Platelet Count 132 L 140-450 10^3/uL Mean Platelet Volume 9.3 6.9-10.8 fL Neutrophils (%) (Auto) 90.8 H 37.0-80.0 % Lymphocytes (%) (Auto) 6.6 L 10.0-50.0 % Monocytes (%) (Auto) 2.4 0.0-12.0 % Eosinophils (%) (Auto) 0.1 0.0-7.0 % Basophils (%) (Auto) 0.1 0.0-2.0 % Neutrophils # (Auto) 16.4 H 1.6-8.6 10 ^3/uL Lymphocytes # (Auto) 1.2 0.4-5.4 10 ^3/uL Monocytes # (Auto) 0.4 0-1.3 10 ^3/uL Eosinophils # (Auto) 0 0-0.8 10 ^3/uL Basophils # (Auto) 0 0-0.2 10 ^3/uL Nucleated Red Blood Cells 0.1 % Sodium Level 134 L 136-145 mmol/L Potassium Level 4.3 3.5-5.1 mmol/L Chloride Level 101 98-107 mmol/L Carbon Dioxide Level 16 L 20-31 mmol/L Anion Gap 17 H 5-15 Blood Urea Nitrogen 47 #H 9-23 mg/dL Creatinine 3.75 H 0.550-1.02 mg/dL Glomerular Filtration Rate Calc 11 >90 mL/min BUN/Creatinine Ratio 12.5 10.0-20.0 Serum Glucose 123 H 74-106 mg/dL Calcium Level 8.0 L 8.7-10.4 mg/dL Total Bilirubin 0.9 0.2-1.0 mg/dL Aspartate Amino Transferase (AST) 2668 H 13-40 U/L Alanine Aminotransferase (ALT) 3349 H 7-40 U/L Alkaline Phosphatase 182 H 46-116 U/L Total Protein 5.4 L 5.7-8.2 g/dL Albumin 2.9 L 3.2-4.8 g/dL Lipase 38 12-53 U/L Vitamin D 25-Hydroxy 42.6 30.0-100 ng/mL Test 05/18/25 13:07 05/18/25 09:42 05/18/25 05:03 05/17/25 11:48 Range/Units Troponin I High Sensitivity 289 *H </=34 ng/L Blood Gas Specimen Type Arterial Blood Gas Sample Site Left radial Blood Gas Patient Temperature 37.0 Arterial Blood Date Drawn [id number] Arterial Blood pH 7.360 7.350-7.450 Arterial Blood Partial Pressure CO2 25.1 L 32.0-45.0 mmHg Arterial Blood Partial Pressure O2 115.0 H 83.0-108.0 mmHg Arterial Blood HCO3 13.9 L 21.0-28.0 mmol/L Arterial Blood Oxygen Saturation 97.8 94.0-98.0 % Arterial Blood Base Excess -9.7 L -2.0-3.0 mmol/L Arterial Blood Oxyhemoglobin 96.8 94.0-98.0 % Arterial Blood Carboxyhemoglobin 0.6 0.5-1.5 % Arterial Blood Methemoglobin 0.4 0.0-1.5 % Demond Test Yes Blood Gas Total Hemoglobin 13.50 12.0-16.0 g/dL Blood Gas Liter Flow 3.00 Blood Gas Modality Nasal cannula FiO2 % 32.0 Uric Acid 11.4 H 3.1-7.8 mg/dL Phosphorus Level 5.9 H 2.4-5.1 mg/dL Magnesium Level 2.1 1.6-2.6 mg/dL B-Type Natriuretic Peptide 910.00 0-100 pg/mL Parathyroid Hormone (Intact) 870.1 H 18.4-80.1 pg/mL Hemoglobin A1c 6.0 H <5.7 % A1C Triglycerides Level 132 < 150 mg/dL Cholesterol Level 97 < 200 mg/dL LDL Cholesterol 33 < 100 mg/dL HDL Cholesterol 40 40-59 mg/dL Free Thyroxine (T4) Calculated 1.40 0.89-1.76 ng/dL Total Triiodothyronine (TT3) 0.42 L 0.60-1.81 ng/mL Test 05/17/25 11:32 05/17/25 11:09 05/17/25 03:58 05/17/25 00:55 Range/Units Urine Color Yellow Yellow Urine Clarity Turbid H Clear Urine pH 5.5 5.0-9.0 Urine Specific [place] 1.016 1.001-1.035 Urine Protein 1+ H Negative Urine Ketones 1+ H Negative Urine Blood Negative Negative /uL Urine Nitrite Negative Negative Urine Bilirubin Negative Negative Urine Urobilinogen Normal Negative mg/dL Urine Leukocyte Esterase Negative Negative /uL Urine RBC 6 0 - 4 /hpf Urine Microscopic WBC 4 0-5 /HPF Urine Squamous Epithelial Cells Few <5 /hpf Urine Bacteria Few H None Seen /hpf Urine Hyaline Casts Mod 0 - 2 /lpf Urine Mucus Few None Seen Urine Glucose Normal Normal mg/dL Influenza Type A Antigen Negative Negative Influenza Type B Antigen Negative Negative SARS-CoV-2 Antigen (Rapid) Negative NEGATIVE Lactic Acid Level 6.4 *H 0.4-2.0 mmol/L Thyroid Stimulating Hormone (TSH) 0.05 L 0.55-4.78 uIU/mL Random Vancomycin Level 14.6 H 5-10 ug/mL Prothrombin Time 21.6 H 9.3-11.8 sec Prothrombin Time INR 2.20 H 0.9-1.15 Activated Partial Thromboplast Time 41.6 H 24.5-34.5 SEC D-Dimer, Quantitative 3.14 H 0.0-0.49 mg/L FEU Microbiology Date/Time Source Procedure Growth Status 05/17/25 23:45 Nose MRSA Screen - Final Complete 05/17/25 19:06 Sputum Gram Stain - Final Resulted 05/17/25 19:06 Sputum Respiratory Culture - Preliminary Resulted 05/17/25 11:32 Urine - [place] Urine Culture - Preliminary Resulted 05/17/25 10:18 Blood Blood Culture - Preliminary NO GROWTH AFTER 48 HOURS OF INCUBATION. Resulted Assessment Liver cirrhosis ( MELD Na 29) Acute liver injury likely from sepsis Sepsis likely from pneumonia Persistent Atrial fibrillation Congestive heart failure Probable proctocolitis Constipation Plan - monitor LFTs - continue on clear liquid diet, advanced as tolerated - Protonix daily - metoclopramide - MiraLax as needed Plan discussed with Dr. Edmond Plan discussed with: Patient, Other (KEZIA Katz) REJI CANO RESIDENT May 19, 2025 15:18
[2025-05-19] MEDS ORDERED: POLYETHYLENE GLYCOL 17 GM PWDR PO PRN (15:30)
[2025-05-19] MEDS: SODIUM CHLORIDE 0.9% 1,000 ML IV ONE (17:44)
[2025-05-20] VITALS (82 sets, daily range): BP systolic 102–144; BP diastolic 48–86; PULSE 82–133; RESP 12–22; TEMP 97.8–98.3; O2SAT 93–100
[2025-05-20 04:25] LABS: Hematocrit 43.1 % (36.0-46.0); Hemoglobin 14.6 g/dL (12.2-16.2); Mean Corpuscular Hemoglobin 26.9 pg (28.0-32.0); Mean Corpuscular Volume 79.7 fL (80.0-100.0); Nucleated Red Blood Cells % 0.1 %
[2025-05-20 04:42] LABS: Anion Gap 18 (5-15); BUN/Creatinine Ratio 15.3 (10.0-20.0); Chloride 99 mmol/L (98-107); Potassium 4.0 mmol/L (3.5-5.1)
[2025-05-20 04:43] LABS: Bilirubin, Total 0.9 mg/dL (0.2-1.0)
[2025-05-20 04:50] LABS: Blood Urea Nitrogen 58 mg/dL (9-23); Carbon Dioxide 16 mmol/L (20-31); Glucose 108 mg/dL (74-106); Sodium 133 mmol/L (136-145)
[2025-05-20 04:51] LABS: Albumin 2.7 g/dL (3.2-4.8); Alkaline Phosphatase 180 U/L (46-116); Calcium 8.4 mg/dL (8.7-10.4); Total Protein 5.0 g/dL (5.7-8.2)
[2025-05-20 04:55] LABS: Alanine Aminotransferase 2144 U/L (7-40)
--- NOTE | 2025-05-20 05:38 | DVH ---
CHEST RADIOGRAPH Indication: pna Technique: Single frontal view of the chest was obtained COMPARISON: XY CHEST XRAY 1 VIEW on DOS: 05/19/25, XY CHEST PORTABLE on DOS: 05/18/25, XY CHEST XRAY 1 VIEW on DOS: 05/17/25, XR CHEST 1 VIEW on DOS: 05/16/25, XR CHEST 2 VIEWS on DOS: 11/27/24 FINDINGS: Lines and Tubes: None Lungs: Pulmonary edema, unchanged. Pleura: No effusion. No pneumothorax. Cardiomediastinal contours: Unremarkable Bones: Unremarkable IMPRESSION: Pulmonary edema, unchanged.
--- NOTE | 2025-05-20 09:28 | DVHPN2 ---
Subjective Continues to report having generalized weakness. Reviewed: Care Plan, H&P, Labs, Medications, Previous Orders Changes from previous H/P or p: No Changes General: Per HPI Objective Vitals Vital Signs Date Time Temp Pulse Resp B/P (MAP) Pulse Ox O2 Delivery O2 Flow Rate FiO2 05/20/25 08:43 102 12 130/70 98 05/20/25 06:01 Room Air* 0 21 05/20/25 04:00 98.1 98.1 Intake/Output Intake and Output 05/20/25 07:00 Intake Total 2010 ml Output Total 300 ml Balance 1710 ml Intake Oral 460 ml IV Total 1550 ml Output Urine Total 300 ml # Bowel Movements 1 General Appearance: Alert, Oriented X3, Cooperative, mild distress HEENT: Atraumatic, PERRLA Lungs: Clear to auscultation, Normal air movement Cardiovascular: Normal S1, Normal S2, Other (AFib with RVR) Abdomen: Normal bowel sounds, Soft, No tenderness, No hepatospenomegaly Genitourinary: No Apparent Abnormalities Musculoskeletal: Normal sensory function Extremities: No clubbing, No cyanosis, No edema, Normal pulses, No tenderness/swelling Neuro: Normal speech Skin: Dry, Intact Psych/Mental Status: Mental status NL, Mood NL Medications Current Medications Medications Dose Ordered Sig/Royce Route Start Time Stop Time Status Last Admin Dose Admin Guaifenesin/ Dextromethorphan 10 ml Q4HP PRN PO 05/17/25 04:30 05/17/25 17:12 10 ML Ondansetron HCl 4 mg Q4HP PRN IV 05/17/25 04:30 05/19/25 23:35 4 MG Acetaminophen 650 mg Q6HP PRN PO 05/17/25 04:30 Nitroglycerin 0.4 mg Q5MINP PRN SL 05/17/25 04:30 Morphine Sulfate 2 mg Q30M PRN IV 05/17/25 04:30 Enoxaparin Sodium 70 mg Q12HR SC 05/17/25 22:00 UNV Norepinephrine Bitartrate 32 mg/ Sodium Chloride 250 ml @ 0.938 mls/ hr Q24H IV 05/17/25 10:30 Diagnostic Test (Pha) 1 strip ACHS 05/17/25 11:30 05/20/25 05:58 1 STRIP Insulin Human Regular HS SC 05/17/25 22:00 Insulin Human Regular AC SC 05/17/25 11:30 05/19/25 17:46 2 UNITS Dextrose 50 ml UD PRN IV 05/17/25 10:30 Levalbuterol HCl 1.25 mg Q6HR NEB 05/17/25 12:00 05/20/25 06:01 1.25 MG Linezolid 300 ml @ 150 mls/hr Q12HR IV 05/17/25 22:00 05/19/25 21:32 150 MLS/HR Ipratropium [place] 0.5 mg Q6HR NEB 05/18/25 12:00 05/20/25 06:01 0.5 MG Acetylcysteine 100 mg Q6HR NEB 05/18/25 12:00 05/20/25 06:01 100 MG Pantoprazole Sodium 40 mg DAILY IV 05/19/25 10:00 UNV Pantoprazole Sodium 40 mg DAILY IV 05/18/25 11:15 05/19/25 08:46 40 MG Meropenem 50 ml @ 17 mls/hr Q12HR IV 05/18/25 22:00 05/19/25 21:32 17 MLS/HR Metoclopramide HCl 10 mg Q12HR IV 05/19/25 10:00 05/20/25 10:01 05/19/25 21:32 10 MG Digoxin 125 mcg EOD IV 05/20/25 10:00 Enoxaparin Sodium 60 mg DAILY SC 05/20/25 10:00 Polyethylene Glycol 17 gm DAILYPRN PRN PO 05/19/25 15:30 Laboratory Results Laboratory Tests 05/20/25 04:00 Chemistry Test 05/20/25 04:00 Albumin 2.7 g/dL (3.2-4.8) L Calcium Level 8.4 mg/dL (8.7-10.4) L Total Protein 5.0 g/dL (5.7-8.2) L LFT Test 05/20/25 04:00 Alanine Aminotransferase (ALT) 2144 U/L (7-40) H Alkaline Phosphatase 180 U/L (46-116) H Aspartate Amino Transferase (AST) 797 U/L (13-40) H Total Bilirubin 0.9 mg/dL (0.2-1.0) Urinalysis Test 05/17/25 11:32 05/19/25 06:48 Urine Color Yellow (Yellow) Urine Clarity Turbid (Clear) H Urine pH 5.5 (5.0-9.0) Urine Specific [place] 1.016 (1.001-1.035) Urine Protein 1+ (Negative) H Urine Ketones 1+ (Negative) H Urine Blood Negative /uL (Negative) Urine Nitrite Negative (Negative) Urine Bilirubin Negative (Negative) Urine Urobilinogen Normal mg/dL (Negative) Urine Leukocyte Esterase Negative /uL (Negative) Urine RBC 6 /hpf (0 - 4) Urine Microscopic WBC 4 /HPF (0-5) Urine Squamous Epithelial Cells Few /hpf (<5) Urine Bacteria Few /hpf (None Seen) H Urine Hyaline Casts Mod /lpf (0 - 2) Urine Mucus Few (None Seen) Urine Glucose Normal mg/dL (Normal) Urine Creatinine 82.26 mg/dL (30.0-125.0) Urine Protein/Creatinine Ratio 1.90 Urine Sodium 24 mmol/L (40-220) L Urine Total Protein 155.9 mg/dL (1-14) H Microbiology Microbiology Date/Time Source Procedure Growth Status 05/17/25 23:45 Nose MRSA Screen - Final Complete 05/17/25 19:06 Sputum Gram Stain - Final Resulted 05/17/25 19:06 Sputum Respiratory Culture - Preliminary Resulted 05/17/25 11:32 Urine - [place] Urine Culture - Preliminary Resulted 05/17/25 10:18 Blood Blood Culture - Preliminary NO GROWTH AFTER 48 HOURS OF INCUBATION. Resulted Labs and/or images reviewed: Labs reviewed by me, Image(s) reviewed by me Assessment/Plan Assessment/Plan Impression: -sepsis -multifocal pneumonia, probable Gram-positive/Gram-negative etiology -AFib with RVR -acute on chronic systolic heart failure -acute hypoxic respiratory failure -NSTEMI, probably type secondary to sepsis -history of pulmonary embolism -acute kidney injury, vasomotor nephropathy - dyslipidemia -COPD -diabetes mellitus Plan: Events: Patient clinically improving. Urine output somewhat improved today. Patient without nausea. -advanced to full liquid diet -antibiotic therapy: Continue Meropenem and Zyvox -cardiology consultation: Recommendations reviewed -nephrology consultation : Recommendations appreciated -O2 supplementation to keep saturation greater than 92% -lynn cultures -bronchodilators, Pulmicort -regular insulin sliding scale -repeat labs and chest x-ray In a.m. Critical care time spent with patient discussing and formulating plan of care: 40 minutes. This does not include time spent performing procedures. This medical document was created using an electronic medical record system with [employer] dictation system. Although this document has been carefully reviewed, there may still be some phonetic and typographical errors. These areas are purely typographical due to imperfections of the software programs, and do not reflect any compromise in the patient's medical care. Plan discussed with: Patient, Other (Rn) My Orders Orders - BRIAN AGUIRRE NP Procedure Category Date Status Time Clear Liq Diet DIET 05/19/25 Transmitted Lunch Carcinoembryonic LAB 05/20/25 Logged Antigen 08:15 Date of Service: May 20, 2025 Billing Provider: BRIAN AGUIRRE NP Common Visit Codes: [id number] CARE 30-74 MIN BRIAN AGUIRRE NP May 20, 2025 09:28
[2025-05-20] MEDS: ENOXAPARIN SOD 60 MG/0.6 ML SYRINGE SC SCH (10:08)
[2025-05-20] MEDS: DIGOXIN (250MCG/ML) 2 ML AMPULE IV SCH (10:22)
--- NOTE | 2025-05-20 11:35 | DVHPN2 ---
Consult Progress Note Date Seen: May 20, 2025 Subjective Other Systems: No overnight cardiac events reported. Denies chest pain Objective vital signs Vital Sign Date Time Temp Pulse Resp B/P (MAP) Pulse Ox O2 Delivery O2 Flow Rate FiO2 05/20/25 10:22 129 05/20/25 09:30 16 113/61 (78) 94 05/20/25 08:30 97.8 97.8 05/20/25 08:20 Room Air* 0 21 Total Intake and Output 05/19/25 05/19/25 05/20/25 14:59 22:59 06:59 Intake Total 475 ml 460 ml 1150 ml Output Total 300 ml Balance 475 ml 460 ml 850 ml medications Current Medications Medications Dose Ordered Sig/Royce Route Start Time Stop Time Status Last Admin Dose Admin Guaifenesin/ Dextromethorphan 10 ml Q4HP PRN PO 05/17/25 04:30 05/17/25 17:12 10 ML Ondansetron HCl 4 mg Q4HP PRN IV 05/17/25 04:30 05/19/25 23:35 4 MG Acetaminophen 650 mg Q6HP PRN PO 05/17/25 04:30 Nitroglycerin 0.4 mg Q5MINP PRN SL 05/17/25 04:30 Morphine Sulfate 2 mg Q30M PRN IV 05/17/25 04:30 Enoxaparin Sodium 70 mg Q12HR SC 05/17/25 22:00 UNV Norepinephrine Bitartrate 32 mg/ Sodium Chloride 250 ml @ 0.938 mls/ hr Q24H IV 05/17/25 10:30 Diagnostic Test (Pha) 1 strip ACHS 05/17/25 11:30 05/20/25 05:58 1 STRIP Insulin Human Regular HS SC 05/17/25 22:00 Insulin Human Regular AC SC 05/17/25 11:30 05/19/25 17:46 2 UNITS Dextrose 50 ml UD PRN IV 05/17/25 10:30 Levalbuterol HCl 1.25 mg Q6HR NEB 05/17/25 12:00 05/20/25 06:01 1.25 MG Linezolid 300 ml @ 150 mls/hr Q12HR IV 05/17/25 22:00 05/20/25 10:30 150 MLS/HR Ipratropium [place] 0.5 mg Q6HR NEB 05/18/25 12:00 05/20/25 06:01 0.5 MG Acetylcysteine 100 mg Q6HR NEB 05/18/25 12:00 05/20/25 06:01 100 MG Pantoprazole Sodium 40 mg DAILY IV 05/19/25 10:00 UNV Pantoprazole Sodium 40 mg DAILY IV 05/18/25 11:15 05/20/25 10:07 40 MG Meropenem 50 ml @ 17 mls/hr Q12HR IV 05/18/25 22:00 05/19/25 21:32 17 MLS/HR Digoxin 125 mcg EOD IV 05/20/25 10:00 05/20/25 10:22 125 MCG Enoxaparin Sodium 60 mg DAILY SC 05/20/25 10:00 05/20/25 10:08 60 MG Polyethylene Glycol 17 gm DAILYPRN PRN PO 05/19/25 15:30 Bumetanide 1 mg DAILY IV 05/20/25 10:45 Patient Own Medication 1 BID EACHEYE 05/20/25 22:00 UNV Patient Own Medication 1 BID EACHEYE 05/20/25 22:00 UNV Examination: GENERAL:Abnormal, LUNGS:Abnormal (Coarse R>L), CVS:Abnormal (A-fib up to 120s bpm. Off vasopressors), NEURO:Normal laboratory and microbiology Laboratory Tests 05/20/25 04:00 Test 05/20/25 04:00 Range/Units Serum Glucose 108 H 74-106 mg/dL Problem List/Assessment/Plan Problem List/Assessment/Plan Sepsis with multifocal PNA Acute on chronic hypoxic respiratory failure Acute on chronic decompensated HFrEF, NYHA Class IV Non-ischemic cardiomyopathy (-[facility] in 2022) Likely persistent AFib with RVR, stage IIIB (on Eliquis/metoprolol therapy) COPD/emphysema exacerbation NSTEMI, likely type 2 secondary to above Hx of PE in 2022 with elevated d-dimer, rule out PE Pulmonary hypertension, moderate degree Tricuspid regurgitation, moderate degree Severe aortic sclerosis rule out severe (pco-kgge-byu gradient) Pre-diabetes mellitus Thyroid disease Dyslipidemia Shocked liver Acute kidney injury Hyperparathyroidism ?secondary * Transthoracic echocardiogram revealed LVEF 25% with RV dysfunction, biatrial enlargement, severe aortic sclerosis cannot rule out given low-flow status, moderate tricuspid regurgitation * Twelve-lead electrocardiograms revealed an atrial fibrillation rhythm with intermittent RVR and no ST-T wave segment changes suggestive of acute ischemia * CXR revealed cardiomegaly with mild pulmonary vascular congestion and small bilateral pleural effusions. Mild bilateral lower zone pulmonary airspace disease * Serial troponin levels flat at 400s ng/L x2 * [facility]: * WBC 22.0, BNP 573, Troponin up to 0.20 ng/mL, TSH 0.03, lactic acid 2.7, D- dimer 0.98 * CXR 1 view: cardiomegaly with increasing interstitial markings especially in the middle HS. Infection versus congestive failure or bolus in the differential * CT head w/o contrast: No CT evidence of an acute intracranial abnormality. Intermediate areas of extensive soft tissue emphysema tracking along the cavernous sinuses and likely along the venous structures likely related to iatrogenic injection of the air and less likely related to soft tissue infection. Correlate with clinical exam * CT chest-abdomen pelvis w/o contrast: Small bilateral pleural effusions with bilateral lower lobe predominant cylindrical bronchiectasis and peribronchial thickening. Patchy areas of consolidation with marginal ground-glass versus masses. Prominent mediastinal lymphadenopathy. Large amount of stool burden with in the lower rectum. Broad differential includes infection however neoplastic disease not excluded mediastinal lymphadenopathy might be reactive versus neoplastic Plan/Recommendation (Dr. Swanson) The patient can benefit from an eventual dobutamine stress echocardiogram to rule out severe aortic valve stenosis (LF-LG). In the meantime, continue rate control with digoxin EOD. Continue therapeutic Lovenox and transition to DOAC when appropriate ([id number] Score 5 points, HAS-BLED Score 1 point). Initiate quad concentration vasopressor for hemodynamic support as necessary. Monitor electrolytes, renal function, and liver enzymes closely. Strict I&Os. Continue Nephrology & GI recommendations. Consider pulmonology consultation. Abx therapy per primary care team. Further orders per clinical course. Thank you for allowing us to participate in this patient's care. Please call if you have any questions or concerns. Critical care time: 30 min. This medical document was created using an electronic medical record system with voice recognition software and computerized dictation system. Although this document has been carefully reviewed, there might still be some phonetic and typographical errors. Occasional wrong-word or ``sound-alike substitutions may have occurred due to the inherent limitations of voice recognition software. These areas are purely typographical due to imperfections of the software programs and do not reflect any compromise in the patient's medical care. Please read the chart carefully and recognize, using context, where these substitutions have occurred. Plan discussed with: Patient, Spouse, Other Dietary Evaluation Review Comments: 1.Encourage PO intake to meet her needs at least @75% 2.Consider TF Nepro@35ml/hr providing 68g protein 1484kcal, 611ml free water initial rate @20ml/hr, increase by 10ml/6hrs till reaching the goal rate of 35ml/hr. 3. Consider TPN per pharmacy if EN/GI unaccessible. Expected Outcomes/Goals: Prevent catabolism, prevent muscle waisitng and weight loss. Date of Service: May 20, 2025 Billing Provider: OLGA GILL Cardiology Common Codes: [id number] CARE 30-74 MIN OLGA GILL May 20, 2025 11:35
--- NOTE | 2025-05-20 11:59 | DVHPN2 ---
Progress Note Date Seen: May 20, 2025 Resident Creating Document: REJI CANO RESIDENT Medical Necessity Reason Pt with a Central, PICC or Fol: No Subjective Review of Systems Patient tolerating clear liquids Denies nausea, vomiting, abdominal pain Reports to be passing flatus had a bowel movement yesterday Objective vital signs Vital Sign Date Time Temp Pulse Resp B/P (MAP) Pulse Ox O2 Delivery O2 Flow Rate FiO2 05/20/25 10:22 129 05/20/25 09:30 16 113/61 (78) 94 05/20/25 08:30 97.8 97.8 05/20/25 08:20 Room Air* 0 21 Total Intake and Output 05/19/25 05/19/25 05/20/25 15:00 23:00 07:00 Intake Total 450 ml 760 ml 800 ml Output Total 300 ml Balance 450 ml 760 ml 500 ml medications Current Medications Medications Dose Ordered Sig/Royce Route Start Time Stop Time Status Last Admin Dose Admin Guaifenesin/ Dextromethorphan 10 ml Q4HP PRN PO 05/17/25 04:30 05/17/25 17:12 10 ML Ondansetron HCl 4 mg Q4HP PRN IV 05/17/25 04:30 05/19/25 23:35 4 MG Acetaminophen 650 mg Q6HP PRN PO 05/17/25 04:30 Nitroglycerin 0.4 mg Q5MINP PRN SL 05/17/25 04:30 Morphine Sulfate 2 mg Q30M PRN IV 05/17/25 04:30 Enoxaparin Sodium 70 mg Q12HR SC 05/17/25 22:00 UNV Norepinephrine Bitartrate 32 mg/ Sodium Chloride 250 ml @ 0.938 mls/ hr Q24H IV 05/17/25 10:30 Diagnostic Test (Pha) 1 strip ACHS 05/17/25 11:30 05/20/25 05:58 1 STRIP Insulin Human Regular HS SC 05/17/25 22:00 Insulin Human Regular AC SC 05/17/25 11:30 05/19/25 17:46 2 UNITS Dextrose 50 ml UD PRN IV 05/17/25 10:30 Levalbuterol HCl 1.25 mg Q6HR NEB 05/17/25 12:00 05/20/25 06:01 1.25 MG Linezolid 300 ml @ 150 mls/hr Q12HR IV 05/17/25 22:00 05/20/25 10:30 150 MLS/HR Ipratropium [place] 0.5 mg Q6HR NEB 05/18/25 12:00 05/20/25 06:01 0.5 MG Acetylcysteine 100 mg Q6HR NEB 05/18/25 12:00 05/20/25 06:01 100 MG Pantoprazole Sodium 40 mg DAILY IV 05/19/25 10:00 UNV Pantoprazole Sodium 40 mg DAILY IV 05/18/25 11:15 05/20/25 10:07 40 MG Meropenem 50 ml @ 17 mls/hr Q12HR IV 05/18/25 22:00 05/19/25 21:32 17 MLS/HR Digoxin 125 mcg EOD IV 05/20/25 10:00 05/20/25 10:22 125 MCG Enoxaparin Sodium 60 mg DAILY SC 05/20/25 10:00 05/20/25 10:08 60 MG Polyethylene Glycol 17 gm DAILYPRN PRN PO 05/19/25 15:30 Bumetanide 1 mg DAILY IV 05/20/25 10:45 Patient Own Medication 1 BID EACHEYE 05/20/25 22:00 UNV Patient Own Medication 1 BID EACHEYE 05/20/25 22:00 UNV Examination Gen - no pallor, mild scleral icterus Skin - Patients skin is warm and dry. HEENT - normocephalic, atraumatic, dry mucous membranes. Neck - supple, no lymphadenopathy Pulmonary - B/L decreased breath sounds in the bases with the crackles cardiovascular - regular S1,S2 heard GI - soft nontender abdomen. Bowel sounds normoactive. Neurological - Patient is alert and oriented x3 and is following commands laboratory and microbiology Laboratory Tests 05/20/25 04:00 Test 05/20/25 04:00 Range/Units Serum Glucose 108 H 74-106 mg/dL Microbiology Date/Time Source Procedure Growth Status 05/17/25 23:45 Nose MRSA Screen - Final Complete 05/17/25 19:06 Sputum Gram Stain - Final Resulted 05/17/25 19:06 Sputum Respiratory Culture - Preliminary Resulted 05/17/25 11:32 Urine - [place] Urine Culture - Final Klebsiella ozaenae Complete 05/17/25 10:18 Blood Blood Culture - Preliminary NO GROWTH AFTER 72 HOURS OF INCUBATION. 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 Edmond Plan discussed with: Patient, Other (KEZIA Rocha) My Orders My Orders Orders - REJI CANO RESIDENT Procedure Category Date Status Time Polyethylene Glycol PHA 05/19/25 In Process 17g Powder (Miralax 15:30 Dietary Evaluation Review Comments: 1.Encourage PO intake to meet her needs at least @75% 2.Consider TF Nepro@35ml/hr providing 68g protein 1484kcal, 611ml free water initial rate @20ml/hr, increase by 10ml/6hrs till reaching the goal rate of 35ml/hr. 3. Consider TPN per pharmacy if EN/GI unaccessible. Expected Outcomes/Goals: Prevent catabolism, prevent muscle waisitng and weight loss. REJI CANO RESIDENT May 20, 2025 11:59
[2025-05-20] MEDS: SODIUM BICARB 8.4% 50Meq/50ml SYR Vial IV ONE (12:10)
[2025-05-20] MEDS: BUMETANIDE 1mg/4ml VIAL (0.25mg/ml) IV SCH (12:15)
--- NOTE | 2025-05-20 12:58 | DVHPN2 ---
Progress Note Date Seen: May 20, 2025 Resident Creating Document: NASRIN PATEL RESDIENT Medical Necessity Reason Pt with a Central, PICC or Fol: No Subjective Review of Systems Patient seen and examined at the bedside. Patient is clinically better, and feeling better. Changes from previous H/P or p: No Changes, Changes Objective vital signs Vital Sign Date Time Temp Pulse Resp B/P (MAP) Pulse Ox O2 Delivery O2 Flow Rate FiO2 05/20/25 12:15 120/52 05/20/25 12:04 101 14 100 05/20/25 11:57 Room Air* 0 21 05/20/25 08:30 97.8 97.8 Total Intake and Output 05/19/25 05/19/25 05/20/25 15:00 23:00 07:00 Intake Total 450 ml 760 ml 800 ml Output Total 300 ml Balance 450 ml 760 ml 500 ml medications Current Medications Medications Dose Ordered Sig/Royce Route Start Time Stop Time Status Last Admin Dose Admin Guaifenesin/ Dextromethorphan 10 ml Q4HP PRN PO 05/17/25 04:30 05/17/25 17:12 Ondansetron HCl 4 mg Q4HP PRN IV 05/17/25 04:30 05/19/25 23:35 Acetaminophen 650 mg Q6HP PRN PO 05/17/25 04:30 Nitroglycerin 0.4 mg Q5MINP PRN SL 05/17/25 04:30 Morphine Sulfate 2 mg Q30M PRN IV 05/17/25 04:30 Enoxaparin Sodium 70 mg Q12HR SC 05/17/25 22:00 UNV Norepinephrine Bitartrate 32 mg/ Sodium Chloride 250 ml @ 0.938 mls/ hr Q24H IV 05/17/25 10:30 Diagnostic Test (Pha) 1 strip ACHS 05/17/25 11:30 05/20/25 12:00 Insulin Human Regular HS SC 05/17/25 22:00 Insulin Human Regular AC SC 05/17/25 11:30 05/20/25 11:58 Dextrose 50 ml UD PRN IV 05/17/25 10:30 Levalbuterol HCl 1.25 mg Q6HR NEB 05/17/25 12:00 05/20/25 11:56 Linezolid 300 ml @ 150 mls/hr Q12HR IV 05/17/25 22:00 05/20/25 10:30 Ipratropium [place] 0.5 mg Q6HR NEB 05/18/25 12:00 05/20/25 11:56 Acetylcysteine 100 mg Q6HR NEB 05/18/25 12:00 05/20/25 11:56 Pantoprazole Sodium 40 mg DAILY IV 05/19/25 10:00 UNV Pantoprazole Sodium 40 mg DAILY IV 05/18/25 11:15 05/20/25 10:07 Meropenem 50 ml @ 17 mls/hr Q12HR IV 05/18/25 22:00 05/20/25 12:53 Digoxin 125 mcg EOD IV 05/20/25 10:00 05/20/25 10:22 Enoxaparin Sodium 60 mg DAILY SC 05/20/25 10:00 05/20/25 10:08 Polyethylene Glycol 17 gm DAILYPRN PRN PO 05/19/25 15:30 Bumetanide 1 mg DAILY IV 05/20/25 10:45 05/20/25 12:15 Patient Own Medication 1 BID EACHEYE 05/20/25 22:00 UNV Patient Own Medication 1 BID EACHEYE 05/20/25 22:00 UNV Examination General Appearance: Alert, Oriented X3, Cooperative, in moderate respiratory distress HEENT: Atraumatic, PERRLA, EOMI, dry mucous membrane Respiratory: Bilateral lower zone crackles Cardiovascular: Regular rate, Normal S1, Normal S2, No murmurs, no chest wall tenderness Abdominal: Normal bowel sounds, Soft, No tenderness, No hepatospenomegaly, No masses Extremities: No clubbing, No cyanosis, No edema, Normal pulses, No tenderness/swelling Skin: No rashes, No breakdown, No significant lesion, decreased skin turgor Neuro: Normal gait, Normal speech, Strength at 5/5 X4 ext, Normal tone, Sensation intact, Cranial nerves 3-12 NL, Reflexes 2+ Psych/Mental Status: Mental status NL, Mood NL laboratory and microbiology Laboratory Tests 05/20/25 04:00 Test 05/20/25 04:00 Range/Units Serum Glucose 108 H 74-106 mg/dL Microbiology Date/Time Source Procedure Growth Status 05/17/25 23:45 Nose MRSA Screen - Final Complete 05/17/25 19:06 Sputum Gram Stain - Final Resulted 05/17/25 19:06 Sputum Respiratory Culture - Preliminary Resulted 05/17/25 11:32 Urine - [place] Urine Culture - Final Klebsiella ozaenae Complete 05/17/25 10:18 Blood Blood Culture - Preliminary NO GROWTH AFTER 72 HOURS OF INCUBATION. Resulted Labs and/or images reviewed: Labs reviewed by me, Image(s) reviewed by me Problem List/Assessment/Plan Problem List/Assessment/Plan This is a 84-year-old female with past medical history of CHF, AFib, pulmonary emboli, hypertension, dyslipidemia, hypothyroidism and COPD (on CPAP during night) brought to the hospital due to generalized weakness, lethargy, decreased oral intake and shortness of breath. KIARA on CKD (baseline record not available), hemodynamic etiology in the setting of AFib with RVR/severe sepsis Secondary hyperparathyroidism Hyperphosphatemia Sepsis, due to pneumonia Possible acute on chronic systolic heart failure AFib with RVR Non ST-elevation MS Hyperkalemia, resolved Lactic acidosis Liver cirrhosis Plan/recommendation: (Dr. Mccain) * Kidney function has stabilized, DC IV fluid * Bumex 1 mg IV daily * Check lactic acid * Strict I&Os * Avoid nephrotoxic drugs * We will follow up with the patient Thank you for giving us the opportunity to take care of your patient. Please call back if you have any questions/concerns. Addendum Patient seen and examined, plan discussed with resident. Agree with above, we will follow closely evaluate bottom man needs daily Plan discussed with: Patient, Other (RN) Dietary Evaluation Review Comments: 1.Encourage PO intake to meet her needs at least @75% 2.Consider TF Nepro@35ml/hr providing 68g protein 1484kcal, 611ml free water initial rate @20ml/hr, increase by 10ml/6hrs till reaching the goal rate of 35ml/hr. 3. Consider TPN per pharmacy if EN/GI unaccessible. Expected Outcomes/Goals: Prevent catabolism, prevent muscle waisitng and weight loss. NASRIN PATEL May 20, 2025 12:58 JAVIER MCCAIN MD May 20, 2025 17:36
[2025-05-20] MEDS ORDERED: DULA1INJ SC (14:33)
[2025-05-20] MEDS ORDERED: MONT-8 PO (14:53)
[2025-05-20] MEDS ORDERED: LEVO112T2 PO (14:53)
[2025-05-20] MEDS ORDERED: ALBUAER3 IN (14:53)
[2025-05-20] MEDS ORDERED: BUDE1AER4 IN (14:53)
[2025-05-20] MEDS ORDERED: EZET10TA22 PO (14:53)
[2025-05-20] MEDS ORDERED: APIX5TAB PO (14:53)
[2025-05-20] MEDS ORDERED: OLOP0.1D14 OP (14:53)
[2025-05-20] MEDS ORDERED: FURO1TAB31 PO (14:53)
[2025-05-20] MEDS ORDERED: ESOM40CA39 PO (14:53)
[2025-05-20] MEDS ORDERED: TELM80TA PO (14:53)
[2025-05-20] MEDS ORDERED: METO25TA93 PO (14:53)
[2025-05-21] VITALS (52 sets, daily range): BP systolic 105–143; BP diastolic 51–78; PULSE 82–119; RESP 12–24; TEMP 98–98.6; O2SAT 93–100
[2025-05-21 04:25] LABS: Anion Gap 15 (5-15); BUN/Creatinine Ratio 13.7 (10.0-20.0); Chloride 99 mmol/L (98-107); Glucose 83 mg/dL (74-106); Magnesium 1.8 mg/dL (1.6-2.6); Potassium 3.7 mmol/L (3.5-5.1)
[2025-05-21 04:26] LABS: Bilirubin, Total 0.9 mg/dL (0.2-1.0)
[2025-05-21 04:32] LABS: Albumin 2.5 g/dL (3.2-4.8); Alkaline Phosphatase 167 U/L (46-116); Blood Urea Nitrogen 53 mg/dL (9-23); Calcium 8.3 mg/dL (8.7-10.4); Carbon Dioxide 19 mmol/L (20-31); Sodium 133 mmol/L (136-145); Total Protein 4.7 g/dL (5.7-8.2)
[2025-05-21 04:41] LABS: Hematocrit 43.2 % (36.0-46.0); Hemoglobin 14.3 g/dL (12.2-16.2); Mean Corpuscular Hemoglobin 26.2 pg (28.0-32.0); Mean Corpuscular Volume 79.4 fL (80.0-100.0); Nucleated Red Blood Cells % 0.1 %
--- NOTE | 2025-05-21 05:52 | DVH ---
CHEST RADIOGRAPH Indication: pna Technique: Single frontal view of the chest was obtained COMPARISON: XY CHEST XRAY 1 VIEW on DOS: 05/20/25, XY CHEST XRAY 1 VIEW on DOS: 05/19/25, XY CHEST PORTABLE on DOS: 05/18/25, XY CHEST XRAY 1 VIEW on DOS: 05/17/25, XR CHEST 1 VIEW on DOS: 05/16/25 FINDINGS: Cardiac silhouette is enlarged. Mild prominence of the pulmonary vasculature. Small bilateral pleural effusions with mild bibasilar atelectasis /consolidation. IMPRESSION: Cardiomegaly with mild pulmonary vascular congestion. Small bilateral pleural effusions with mild bibasilar atelectasis/consolidation.
--- NOTE | 2025-05-21 09:31 | DVHPN2 ---
Subjective Patient denies any symptoms at this time. Reviewed: Care Plan, H&P, Labs, Medications, Previous Orders Changes from previous H/P or p: Changes General: Per HPI Objective Vitals Vital Signs Date Time Temp Pulse Resp B/P (MAP) Pulse Ox O2 Delivery O2 Flow Rate FiO2 05/21/25 09:00 112 14 114/51 (72) 96 05/21/25 07:35 Nasal Cannula* 2 28 05/21/25 07:30 98.1 98.1 Intake/Output Intake and Output 05/21/25 07:00 Intake Total 1420 ml Output Total 1010 ml Balance 410 ml Intake Oral 470 ml IV Total 950 ml Output Urine Total 1010 ml # Bowel Movements 1 General Appearance: Alert, Oriented X3, Cooperative, mild distress HEENT: Atraumatic, PERRLA Lungs: Clear to auscultation, Normal air movement Cardiovascular: Normal S1, Normal S2, Other (AFib with RVR) Abdomen: Normal bowel sounds, Soft, No tenderness, No hepatospenomegaly Genitourinary: No Apparent Abnormalities Musculoskeletal: Normal sensory function Extremities: No clubbing, No cyanosis, No edema, Normal pulses, No tenderness/swelling Neuro: Normal speech Skin: Dry, Intact Psych/Mental Status: Mental status NL, Mood NL Medications Current Medications Medications Dose Ordered Sig/Royce Route Start Time Stop Time Status Last Admin Dose Admin Guaifenesin/ Dextromethorphan 10 ml Q4HP PRN PO 05/17/25 04:30 05/17/25 17:12 10 ML Ondansetron HCl 4 mg Q4HP PRN IV 05/17/25 04:30 05/20/25 12:56 4 MG Acetaminophen 650 mg Q6HP PRN PO 05/17/25 04:30 Nitroglycerin 0.4 mg Q5MINP PRN SL 05/17/25 04:30 Morphine Sulfate 2 mg Q30M PRN IV 05/17/25 04:30 Enoxaparin Sodium 70 mg Q12HR SC 05/17/25 22:00 UNV Norepinephrine Bitartrate 32 mg/ Sodium Chloride 250 ml @ 0.938 mls/ hr Q24H IV 05/17/25 10:30 Diagnostic Test (Pha) 1 strip ACHS 05/17/25 11:30 05/21/25 06:12 1 STRIP Insulin Human Regular HS SC 05/17/25 22:00 05/20/25 21:37 3 UNITS Insulin Human Regular AC SC 05/17/25 11:30 05/20/25 17:23 3 UNITS Dextrose 50 ml UD PRN IV 05/17/25 10:30 Levalbuterol HCl 1.25 mg Q6HR NEB 05/17/25 12:00 05/21/25 07:20 1.25 MG Linezolid 300 ml @ 150 mls/hr Q12HR IV 05/17/25 22:00 05/21/25 07:51 150 MLS/HR Ipratropium [place] 0.5 mg Q6HR NEB 05/18/25 12:00 05/21/25 07:20 0.5 MG Acetylcysteine 100 mg Q6HR NEB 05/18/25 12:00 05/21/25 07:20 100 MG Pantoprazole Sodium 40 mg DAILY IV 05/19/25 10:00 UNV Pantoprazole Sodium 40 mg DAILY IV 05/18/25 11:15 05/21/25 07:25 40 MG Meropenem 50 ml @ 17 mls/hr Q12HR IV 05/18/25 22:00 05/21/25 07:25 17 MLS/HR Digoxin 125 mcg EOD IV 05/20/25 10:00 05/20/25 10:22 125 MCG Enoxaparin Sodium 60 mg DAILY SC 05/20/25 10:00 05/21/25 07:25 60 MG Polyethylene Glycol 17 gm DAILYPRN PRN PO 05/19/25 15:30 Bumetanide 1 mg DAILY IV 05/20/25 10:45 05/21/25 07:25 1 MG Patient Own Medication 1 BID EACHEYE 05/20/25 22:00 05/21/25 08:10 1 Patient Own Medication 1 BID EACHEYE 05/20/25 22:00 05/21/25 08:10 1 Laboratory Results Laboratory Tests 05/21/25 03:15 Chemistry Test 05/21/25 03:15 Albumin 2.5 g/dL (3.2-4.8) L Calcium Level 8.3 mg/dL (8.7-10.4) L Magnesium Level 1.8 mg/dL (1.6-2.6) Total Protein 4.7 g/dL (5.7-8.2) L LFT Test 05/21/25 03:15 Alanine Aminotransferase (ALT) U/L (7-40) Alkaline Phosphatase 167 U/L (46-116) H Aspartate Amino Transferase (AST) 366 U/L (13-40) H Total Bilirubin 0.9 mg/dL (0.2-1.0) Urinalysis Test 05/17/25 11:32 05/19/25 06:48 Urine Color Yellow (Yellow) Urine Clarity Turbid (Clear) H Urine pH 5.5 (5.0-9.0) Urine Specific [place] 1.016 (1.001-1.035) Urine Protein 1+ (Negative) H Urine Ketones 1+ (Negative) H Urine Blood Negative /uL (Negative) Urine Nitrite Negative (Negative) Urine Bilirubin Negative (Negative) Urine Urobilinogen Normal mg/dL (Negative) Urine Leukocyte Esterase Negative /uL (Negative) Urine RBC 6 /hpf (0 - 4) Urine Microscopic WBC 4 /HPF (0-5) Urine Squamous Epithelial Cells Few /hpf (<5) Urine Bacteria Few /hpf (None Seen) H Urine Hyaline Casts Mod /lpf (0 - 2) Urine Mucus Few (None Seen) Urine Glucose Normal mg/dL (Normal) Urine Creatinine 82.26 mg/dL (30.0-125.0) Urine Protein/Creatinine Ratio 1.90 Urine Sodium 24 mmol/L (40-220) L Urine Total Protein 155.9 mg/dL (1-14) H Microbiology Microbiology Date/Time Source Procedure Growth Status 05/17/25 23:45 Nose MRSA Screen - Final Complete 05/17/25 19:06 Sputum Gram Stain - Final Resulted 05/17/25 19:06 Sputum Respiratory Culture - Preliminary Resulted 05/17/25 11:32 Urine - [place] Urine Culture - Final Klebsiella ozaenae Complete 05/17/25 10:18 Blood Blood Culture - Preliminary NO GROWTH AFTER 72 HOURS OF INCUBATION. Resulted Labs and/or images reviewed: Labs reviewed by me, Image(s) reviewed by me Assessment/Plan Assessment/Plan Impression: -sepsis -multifocal pneumonia, probable Gram-positive/Gram-negative etiology -AFib with RVR -acute on chronic systolic heart failure -acute hypoxic respiratory failure -NSTEMI, probably type secondary to sepsis -history of pulmonary embolism -acute kidney injury, vasomotor nephropathy - dyslipidemia -COPD -diabetes mellitus Plan: Events: Patient clinically improving. Urine output somewhat improved today. Patient without nausea. -advance to renal diet -antibiotic therapy: Continue Meropenem and Zyvox -cardiology consultation: Recommendations reviewed -nephrology consultation : Recommendations reviewed -O2 supplementation to keep saturation greater than 92% -lynn cultures -bronchodilators, Pulmicort, stop Mucomyst -physical therapy -repeat labs and chest x-ray In a.m. Critical care time spent with patient discussing and formulating plan of care: 40 minutes. This does not include time spent performing procedures. This medical document was created using an electronic medical record system with [employer] dictation system. Although this document has been carefully reviewed, there may still be some phonetic and typographical errors. These areas are purely typographical due to imperfections of the software programs, and do not reflect any compromise in the patient's medical care. Plan discussed with: Patient, Spouse, Other (RN) My Orders Orders - BRIAN AGUIRRE NP Procedure Category Date Status Time Patients Own PHA 05/20/25 In Process Medication 22:00 Patients Own PHA 05/20/25 In Process Medication 22:00 Insert Midline ORDERS 05/20/25 Transmitted 11:44 Date of Service: May 21, 2025 Billing Provider: BRIAN AGUIRRE NP Common Visit Codes: [id number] CARE 30-74 MIN BRIAN AGUIRRE NP May 21, 2025 09:30
--- NOTE | 2025-05-21 11:52 | DVHPN2 ---
Consult Progress Note Date Seen: May 21, 2025 Subjective Review of Systems: CVS:Normal, RESPIRATORY:Normal, NEURO:Normal Objective vital signs Vital Sign Date Time Temp Pulse Resp B/P (MAP) Pulse Ox O2 Delivery O2 Flow Rate FiO2 05/21/25 10:00 96 Nasal Cannula 1.0 05/21/25 10:00 104 14 116/55 (75) 05/21/25 10:00 24 05/21/25 07:30 98.1 98.1 Total Intake and Output 05/20/25 05/20/25 05/21/25 15:00 23:00 07:00 Intake Total 600 ml 520 ml 300 ml Output Total 360 ml 650 ml Balance 600 ml 160 ml -350 ml medications Current Medications Medications Dose Ordered Sig/[place]ce Route Start Time Stop Time Status Last Admin Dose Admin Guaifenesin/ Dextromethorphan 10 ml Q4HP PRN PO 05/17/25 04:30 05/17/25 17:12 10 ML Ondansetron HCl 4 mg Q4HP PRN IV 05/17/25 04:30 05/20/25 12:56 4 MG Acetaminophen 650 mg Q6HP PRN PO 05/17/25 04:30 Nitroglycerin 0.4 mg Q5MINP PRN SL 05/17/25 04:30 Morphine Sulfate 2 mg Q30M PRN IV 05/17/25 04:30 Enoxaparin Sodium 70 mg Q12HR SC 05/17/25 22:00 UNV Norepinephrine Bitartrate 32 mg/ Sodium Chloride 250 ml @ 0.938 mls/ hr Q24H IV 05/17/25 10:30 Diagnostic Test (Pha) 1 strip ACHS 05/17/25 11:30 05/21/25 06:12 1 STRIP Insulin Human Regular HS SC 05/17/25 22:00 05/20/25 21:37 3 UNITS Insulin Human Regular AC SC 05/17/25 11:30 05/20/25 17:23 3 UNITS Dextrose 50 ml UD PRN IV 05/17/25 10:30 Levalbuterol HCl 1.25 mg Q6HR NEB 05/17/25 12:00 05/21/25 07:20 1.25 MG Linezolid 300 ml @ 150 mls/hr Q12HR IV 05/17/25 22:00 05/21/25 07:51 150 MLS/HR Ipratropium [place] 0.5 mg Q6HR NEB 05/18/25 12:00 05/21/25 07:20 0.5 MG Pantoprazole Sodium 40 mg DAILY IV 05/19/25 10:00 UNV Pantoprazole Sodium 40 mg DAILY IV 05/18/25 11:15 05/21/25 07:25 40 MG Meropenem 50 ml @ 17 mls/hr Q12HR IV 05/18/25 22:00 05/21/25 07:25 17 MLS/HR Digoxin 125 mcg EOD IV 05/20/25 10:00 05/20/25 10:22 125 MCG Enoxaparin Sodium 60 mg DAILY SC 05/20/25 10:00 05/21/25 07:25 60 MG Polyethylene Glycol 17 gm DAILYPRN PRN PO 05/19/25 15:30 Bumetanide 1 mg DAILY IV 05/20/25 10:45 05/21/25 07:25 1 MG Patient Own Medication 1 BID EACHEYE 05/20/25 22:00 05/21/25 08:10 1 Patient Own Medication 1 BID EACHEYE 05/20/25 22:00 05/21/25 08:10 1 Examination: GENERAL:Abnormal (Lethargic), LUNGS:Abnormal (Coarse R>L improving), CVS:Normal (A-fib low 100s bpm), MSK:Abnormal (Third spacing to BUEs), NEURO:Normal laboratory and microbiology Laboratory Tests 05/21/25 03:15 Test 05/21/25 03:15 Range/Units Serum Glucose 83 74-106 mg/dL Problem List/Assessment/Plan Problem List/Assessment/Plan Sepsis with multifocal PNA Acute on chronic hypoxic respiratory failure Acute on chronic decompensated HFrEF, NYHA Class IV Non-ischemic cardiomyopathy (-[facility] in 2022) Likely persistent AFib with RVR, stage IIIB (on Eliquis/metoprolol therapy) COPD/emphysema exacerbation NSTEMI, likely type 2 secondary to above Hx of PE in 2022 with elevated d-dimer, rule out PE Pulmonary hypertension, moderate degree Tricuspid regurgitation, moderate degree Severe aortic sclerosis rule out severe ([id number] gradient) Pre-diabetes mellitus Thyroid disease Dyslipidemia Shocked liver Acute kidney injury Hyperparathyroidism ?secondary * Transthoracic echocardiogram revealed LVEF 25% with RV dysfunction, biatrial enlargement, severe aortic sclerosis cannot rule out given low-flow status, moderate tricuspid regurgitation * Twelve-lead electrocardiograms revealed an atrial fibrillation rhythm with intermittent RVR and no ST-T wave segment changes suggestive of acute ischemia * CXR revealed cardiomegaly with mild pulmonary vascular congestion and small bilateral pleural effusions. Mild bilateral lower zone pulmonary airspace disease * Serial troponin levels flat at 400s ng/L x2 * [facility]: * WBC 22.0, BNP 573, Troponin up to 0.20 ng/mL, TSH 0.03, lactic acid 2.7, D- dimer 0.98 * CXR 1 view: cardiomegaly with increasing interstitial markings especially in the middle HS. Infection versus congestive failure or bolus in the differential * CT head w/o contrast: No CT evidence of an acute intracranial abnormality. Intermediate areas of extensive soft tissue emphysema tracking along the cavernous sinuses and likely along the venous structures likely related to iatrogenic injection of the air and less likely related to soft tissue infection. Correlate with clinical exam * CT chest-abdomen pelvis w/o contrast: Small bilateral pleural effusions with bilateral lower lobe predominant cylindrical bronchiectasis and peribronchial thickening. Patchy areas of consolidation with marginal ground-glass versus masses. Prominent mediastinal lymphadenopathy. Large amount of stool burden with in the lower rectum. Broad differential includes infection however neoplastic disease not excluded mediastinal lymphadenopathy might be reactive versus neoplastic Plan/Recommendation (Dr. Swanson) The patient can benefit from an eventual dobutamine stress echocardiogram to rule out severe aortic valve stenosis (LF-LG). In the meantime, continue rate control with digoxin EOD. Continue therapeutic Lovenox and transition to DOAC when appropriate ([id number] Score 5 points, HAS-BLED Score 1 point). Initiate quad concentration vasopressor for hemodynamic support as necessary. Monitor electrolytes, renal function, and liver enzymes closely. Strict I&Os. Continue Nephrology & GI recommendations. Abx therapy per primary care team. Further orders per clinical course. Thank you for allowing us to participate in this patient's care. Please call if you have any questions or concerns. Critical care time: 30 min. This medical document was created using an electronic medical record system with voice recognition software and computerized dictation system. Although this document has been carefully reviewed, there might still be some phonetic and typographical errors. Occasional wrong-word or ``sound-alike substitutions may have occurred due to the inherent limitations of voice recognition software. These areas are purely typographical due to imperfections of the software programs and do not reflect any compromise in the patient's medical care. Please read the chart carefully and recognize, using context, where these substitutions have occurred. Plan discussed with: Patient, Spouse, Other Dietary Evaluation Review Comments: 1.Encourage PO intake to meet her needs at least @75% 2.Consider TF Nepro@35ml/hr providing 68g protein 1484kcal, 611ml free water initial rate @20ml/hr, increase by 10ml/6hrs till reaching the goal rate of 35ml/hr. 3. Consider TPN per pharmacy if EN/GI unaccessible. Expected Outcomes/Goals: Prevent catabolism, prevent muscle waisitng and weight loss. Date of Service: May 21, 2025 Billing Provider: OLGA GLIL Cardiology Common Codes: [id number] CARE 30-74 MIN OLGA GILL May 21, 2025 11:52
[2025-05-21] MEDS: MAGNESIUM SULFATE 1GM/100ML 100 ML IV ONE (12:25)
--- NOTE | 2025-05-21 13:46 | DVHPN2 ---
Progress Note - Dictate Date Seen: May 21, 2025 Medical Necessity Reason Pt with a Central, PICC or Fol: No Subjective No new complaints Patient is getting a breathing treatment She is awake alert Leukocytosis improving Liver enzymes are trending down vital signs Vital Sign Date Time Temp Pulse Resp B/P (MAP) Pulse Ox O2 Delivery O2 Flow Rate FiO2 05/21/25 13:38 15 96 Nasal Cannula* 1 24 05/21/25 13:38 109 05/21/25 13:30 116/66 (83) 05/21/25 12:00 98.6 98.6 Total Intake and Output 05/20/25 05/20/25 05/21/25 15:00 23:00 07:00 Intake Total 600 ml 520 ml 300 ml Output Total 360 ml 650 ml Balance 600 ml 160 ml -350 ml medications Current Medications Medications Dose Ordered Sig/Royce Route Start Time Stop Time Status Last Admin Dose Admin Guaifenesin/ Dextromethorphan 10 ml Q4HP PRN PO 05/17/25 04:30 05/17/25 17:12 10 ML Ondansetron HCl 4 mg Q4HP PRN IV 05/17/25 04:30 05/20/25 12:56 4 MG Acetaminophen 650 mg Q6HP PRN PO 05/17/25 04:30 Nitroglycerin 0.4 mg Q5MINP PRN SL 05/17/25 04:30 Morphine Sulfate 2 mg Q30M PRN IV 05/17/25 04:30 Enoxaparin Sodium 70 mg Q12HR SC 05/17/25 22:00 UNV Norepinephrine Bitartrate 32 mg/ Sodium Chloride 250 ml @ 0.938 mls/ hr Q24H IV 05/17/25 10:30 Diagnostic Test (Pha) 1 strip ACHS 05/17/25 11:30 05/21/25 11:53 1 STRIP Insulin Human Regular HS SC 05/17/25 22:00 05/20/25 21:37 3 UNITS Insulin Human Regular AC SC 05/17/25 11:30 05/21/25 11:30 3 UNITS Dextrose 50 ml UD PRN IV 05/17/25 10:30 Levalbuterol HCl 1.25 mg Q6HR NEB 05/17/25 12:00 05/21/25 12:17 1.25 MG Linezolid 300 ml @ 150 mls/hr Q12HR IV 05/17/25 22:00 05/21/25 07:51 150 MLS/HR Ipratropium [place] 0.5 mg Q6HR NEB 05/18/25 12:00 05/21/25 12:17 0.5 MG Pantoprazole Sodium 40 mg DAILY IV 05/19/25 10:00 UNV Pantoprazole Sodium 40 mg DAILY IV 05/18/25 11:15 05/21/25 07:25 40 MG Meropenem 50 ml @ 17 mls/hr Q12HR IV 05/18/25 22:00 05/21/25 07:25 17 MLS/HR Digoxin 125 mcg EOD IV 05/20/25 10:00 05/20/25 10:22 125 MCG Enoxaparin Sodium 60 mg DAILY SC 05/20/25 10:00 05/21/25 07:25 60 MG Polyethylene Glycol 17 gm DAILYPRN PRN PO 05/19/25 15:30 Bumetanide 1 mg DAILY IV 05/20/25 10:45 05/21/25 07:25 1 MG Patient Own Medication 1 BID EACHEYE 05/20/25 22:00 05/21/25 08:10 1 Patient Own Medication 1 BID EACHEYE 05/20/25 22:00 05/21/25 08:10 1 objective Gen - no pallor, no scleral icterus Skin - Patients skin is warm and dry. HEENT - normocephalic, atraumatic, dry mucous membranes. Neck - supple, no lymphadenopathy Pulmonary - B/L decreased breath sounds in the bases with the crackles cardiovascular - regular S1,S2 heard GI - soft nontender abdomen. Bowel sounds normoactive. Neurological - Patient is alert and oriented x3 and is following commands laboratory and microbiology Laboratory Tests 05/21/25 03:15 Test 05/21/25 03:15 Range/Units Serum Glucose 83 74-106 mg/dL Problems(with codes): (1) Transaminitis (2) Shock liver (3) Afib (4) NSTEMI (non-ST elevated myocardial infarction) Prognosis Plan Continue supportive care; hepatitis panel is negative Liver enzymes are trending down and she is hemodynamically stable H&H is stable Advance diet as tolerated GI Services will follow as needed Dietary Evaluation Review Comments: 1.Encourage PO intake to meet her needs at least @75% 2.Consider TF Nepro@35ml/hr providing 68g protein 1484kcal, 611ml free water initial rate @20ml/hr, increase by 10ml/6hrs till reaching the goal rate of 35ml/hr. 3. Consider TPN per pharmacy if EN/GI unaccessible. Expected Outcomes/Goals: Prevent catabolism, prevent muscle waisitng and weight loss. Plan discussed with: Patient PARIS VAUGHN MD May 21, 2025 13:46
--- NOTE | 2025-05-21 17:26 | DVHPN2 ---
Progress Note Date Seen: May 21, 2025 Resident Creating Document: NASRIN PATEL RESDIENT Medical Necessity Reason Pt with a Central, PICC or Fol: No Subjective Review of Systems Patient seen and examined at the bedside. Patient is clinically better, and feeling better. Objective vital signs Vital Sign Date Time Temp Pulse Resp B/P (MAP) Pulse Ox O2 Delivery O2 Flow Rate FiO2 05/21/25 15:53 15 96 Nasal Cannula* 1 24 05/21/25 15:53 106 05/21/25 15:30 112/61 (78) 05/21/25 12:00 98.6 98.6 Total Intake and Output 05/20/25 05/20/25 05/21/25 15:00 23:00 07:00 Intake Total 600 ml 520 ml 300 ml Output Total 360 ml 650 ml Balance 600 ml 160 ml -350 ml medications Current Medications Medications Dose Ordered Sig/Royce Route Start Time Stop Time Status Last Admin Dose Admin Guaifenesin/ Dextromethorphan 10 ml Q4HP PRN PO 05/17/25 04:30 05/17/25 17:12 10 ML Ondansetron HCl 4 mg Q4HP PRN IV 05/17/25 04:30 05/20/25 12:56 4 MG Acetaminophen 650 mg Q6HP PRN PO 05/17/25 04:30 Nitroglycerin 0.4 mg Q5MINP PRN SL 05/17/25 04:30 Morphine Sulfate 2 mg Q30M PRN IV 05/17/25 04:30 Enoxaparin Sodium 70 mg Q12HR SC 05/17/25 22:00 UNV Norepinephrine Bitartrate 32 mg/ Sodium Chloride 250 ml @ 0.938 mls/ hr Q24H IV 05/17/25 10:30 Diagnostic Test (Pha) 1 strip ACHS 05/17/25 11:30 05/21/25 16:46 1 STRIP Insulin Human Regular HS SC 05/17/25 22:00 05/20/25 21:37 3 UNITS Insulin Human Regular AC SC 05/17/25 11:30 05/21/25 16:46 2 UNITS Dextrose 50 ml UD PRN IV 05/17/25 10:30 Levalbuterol HCl 1.25 mg Q6HR NEB 05/17/25 12:00 05/21/25 12:17 1.25 MG Linezolid 300 ml @ 150 mls/hr Q12HR IV 05/17/25 22:00 05/21/25 07:51 150 MLS/HR Ipratropium [place] 0.5 mg Q6HR NEB 05/18/25 12:00 05/21/25 12:17 0.5 MG Pantoprazole Sodium 40 mg DAILY IV 05/19/25 10:00 UNV Pantoprazole Sodium 40 mg DAILY IV 05/18/25 11:15 05/21/25 07:25 40 MG Meropenem 50 ml @ 17 mls/hr Q12HR IV 05/18/25 22:00 05/21/25 07:25 17 MLS/HR Digoxin 125 mcg EOD IV 05/20/25 10:00 05/20/25 10:22 125 MCG Enoxaparin Sodium 60 mg DAILY SC 05/20/25 10:00 05/21/25 07:25 60 MG Polyethylene Glycol 17 gm DAILYPRN PRN PO 05/19/25 15:30 Bumetanide 1 mg DAILY IV 05/20/25 10:45 05/21/25 07:25 1 MG Patient Own Medication 1 BID EACHEYE 05/20/25 22:00 05/21/25 08:10 1 Patient Own Medication 1 BID EACHEYE 05/20/25 22:00 05/21/25 08:10 1 Examination General Appearance: Alert, Oriented X3, Cooperative, in moderate respiratory distress HEENT: Atraumatic, PERRLA, EOMI, dry mucous membrane Respiratory: Bilateral lower zone crackles Cardiovascular: Regular rate, Normal S1, Normal S2, No murmurs, no chest wall tenderness Abdominal: Normal bowel sounds, Soft, No tenderness, No hepatospenomegaly, No masses Extremities: No clubbing, No cyanosis, No edema, Normal pulses, No tenderness/swelling Skin: No rashes, No breakdown, No significant lesion, decreased skin turgor Neuro: Normal gait, Normal speech, Strength at 5/5 X4 ext, Normal tone, Sensation intact, Cranial nerves 3-12 NL, Reflexes 2+ Psych/Mental Status: Mental status NL, Mood NL laboratory and microbiology Laboratory Tests 05/21/25 03:15 Test 05/21/25 03:15 Range/Units Serum Glucose 83 74-106 mg/dL Microbiology Date/Time Source Procedure Growth Status 05/17/25 23:45 Nose MRSA Screen - Final Complete 05/17/25 19:06 Sputum Gram Stain - Final Complete 05/17/25 19:06 Respiratory Culture - Final Shewanella putrefaciens Complete 05/17/25 11:32 Urine - [place] Urine Culture - Final Klebsiella ozaenae Complete 05/17/25 10:18 Blood Blood Culture - Preliminary NO GROWTH AFTER 72 HOURS OF INCUBATION. Resulted Labs and/or images reviewed: Labs reviewed by me, Image(s) reviewed by me Problem List/Assessment/Plan Problem List/Assessment/Plan This is a 84-year-old female with past medical history of CHF, AFib, pulmonary emboli, hypertension, dyslipidemia, hypothyroidism and COPD (on CPAP during night) brought to the hospital due to generalized weakness, lethargy, decreased oral intake and shortness of breath. KIARA on CKD (baseline record not available), hemodynamic etiology in the setting of AFib with RVR/severe sepsis Secondary hyperparathyroidism Hyperphosphatemia Sepsis, due to pneumonia Possible acute on chronic systolic heart failure AFib with RVR Non ST-elevation NH Hyperkalemia, resolved Lactic acidosis Liver cirrhosis Plan/recommendation: (Dr. Mccain) * Kidney function has stabilized * Bumex 1 mg IV daily * Check lactic acid * Strict I&Os * Avoid nephrotoxic drugs * We will follow up with the patient Thank you for giving us the opportunity to take care of your patient. Please call back if you have any questions/concerns. Addendum Patient seen and examined, plan discussed with resident. Agree with above, we will follow closely Plan discussed with: Patient, Other (RN) Dietary Evaluation Review Comments: 1.Encourage PO intake to meet her needs at least @75% 2.Consider TF Nepro@35ml/hr providing 68g protein 1484kcal, 611ml free water initial rate @20ml/hr, increase by 10ml/6hrs till reaching the goal rate of 35ml/hr. 3. Consider TPN per pharmacy if EN/GI unaccessible. Expected Outcomes/Goals: Prevent catabolism, prevent muscle waisitng and weight loss. NASRIN PATEL May 21, 2025 17:26 JAVIER MCCAIN MD May 21, 2025 18:20
[2025-05-22] VITALS (43 sets, daily range): BP systolic 116–152; BP diastolic 54–80; PULSE 88–117; RESP 11–18; TEMP 96.9–98.6; O2SAT 93–100
[2025-05-22 04:40] LABS: Hematocrit 42.7 % (36.0-46.0); Hemoglobin 14.5 g/dL (12.2-16.2); Mean Corpuscular Hemoglobin 27.3 pg (28.0-32.0); Mean Corpuscular Volume 80.2 fL (80.0-100.0); Nucleated Red Blood Cells % 0.2 %
[2025-05-22 09:38] LABS: Calcium 8.9 mg/dL (8.7-10.4); Chloride 97 mmol/L (98-107); Potassium 3.8 mmol/L (3.5-5.1); Sodium 133 mmol/L (136-145)
[2025-05-22 09:44] LABS: Alkaline Phosphatase 158 U/L (46-116); Glucose 131 mg/dL (74-106)
[2025-05-22 10:19] LABS: Anion Gap 15 (5-15); BUN/Creatinine Ratio 12.3 (10.0-20.0)
[2025-05-22 10:20] LABS: Alanine Aminotransferase 976 U/L (7-40); Albumin 2.7 g/dL (3.2-4.8); Bilirubin, Total 1.1 mg/dL (0.2-1.0); Blood Urea Nitrogen 48 mg/dL (9-23); Carbon Dioxide 21 mmol/L (20-31); Total Protein 5.1 g/dL (5.7-8.2)
--- NOTE | 2025-05-22 12:09 | DVHPN2 ---
Progress Note - Dictate Date Seen: May 22, 2025 Medical Necessity Reason Pt with a Central, PICC or Fol: No vital signs Vital Sign Date Time Temp Pulse Resp B/P (MAP) Pulse Ox O2 Delivery O2 Flow Rate FiO2 05/22/25 11:43 105 16 96 05/22/25 09:32 Room Air* 0 21 05/22/25 09:30 141/62 (88) 05/22/25 08:00 97.9 97.9 Total Intake and Output 05/21/25 05/21/25 05/22/25 15:00 23:00 07:00 Intake Total 667 ml 664 ml Output Total 750 ml 1100 ml Balance -83 ml -436 ml medications Current Medications Medications Dose Ordered Sig/Royce Route Start Time Stop Time Status Last Admin Dose Admin Guaifenesin/ Dextromethorphan 10 ml Q4HP PRN PO 05/17/25 04:30 05/17/25 17:12 10 ML Ondansetron HCl 4 mg Q4HP PRN IV 05/17/25 04:30 05/20/25 12:56 4 MG Acetaminophen 650 mg Q6HP PRN PO 05/17/25 04:30 Nitroglycerin 0.4 mg Q5MINP PRN SL 05/17/25 04:30 Morphine Sulfate 2 mg Q30M PRN IV 05/17/25 04:30 Enoxaparin Sodium 70 mg Q12HR SC 05/17/25 22:00 UNV Norepinephrine Bitartrate 32 mg/ Sodium Chloride 250 ml @ 0.938 mls/ hr Q24H IV 05/17/25 10:30 Diagnostic Test (Pha) 1 strip ACHS 05/17/25 11:30 05/22/25 10:52 1 STRIP Insulin Human Regular HS SC 05/17/25 22:00 05/20/25 21:37 3 UNITS Insulin Human Regular AC SC 05/17/25 11:30 05/22/25 10:53 3 UNITS Dextrose 50 ml UD PRN IV 05/17/25 10:30 Levalbuterol HCl 1.25 mg Q6HR NEB 05/17/25 12:00 05/22/25 11:43 1.25 MG Linezolid 300 ml @ 150 mls/hr Q12HR IV 05/17/25 22:00 05/22/25 08:44 150 MLS/HR Ipratropium [place] 0.5 mg Q6HR NEB 05/18/25 12:00 05/22/25 11:43 0.5 MG Pantoprazole Sodium 40 mg DAILY IV 05/19/25 10:00 UNV Pantoprazole Sodium 40 mg DAILY IV 05/18/25 11:15 05/22/25 07:47 40 MG Meropenem 50 ml @ 17 mls/hr Q12HR IV 05/18/25 22:00 05/22/25 07:48 17 MLS/HR Digoxin 125 mcg EOD IV 05/20/25 10:00 05/22/25 07:47 125 MCG Enoxaparin Sodium 60 mg DAILY SC 05/20/25 10:00 05/22/25 07:47 60 MG Polyethylene Glycol 17 gm DAILYPRN PRN PO 05/19/25 15:30 Bumetanide 1 mg DAILY IV 05/20/25 10:45 05/22/25 07:47 1 MG Patient Own Medication 1 BID EACHEYE 05/20/25 22:00 05/22/25 07:47 1 Patient Own Medication 1 BID EACHEYE 05/20/25 22:00 05/22/25 07:47 1 laboratory and microbiology Laboratory Tests 05/22/25 09:02 05/22/25 03:50 Test 05/22/25 09:02 Range/Units Serum Glucose 131 H 74-106 mg/dL Assessment/Plan Impression Acute hypoxemic respiratory failure Multifocal pneumonia Elevated troponin Afib with RVR HX of COPD/asthma Patient seen and examined Events Low oxygen requirements On 2 liters nasal cannula Patient is mostly bedbound at home Hemodynamics improving, off pressors Labs and imaging reviewed Management Supplemental oxygen Titrate to maintain sats 90% or above Incentive spirometry Continue antibiotics F/u cultures Bronchodilators Monitor renal function Monitor electrolytes Supplement as needed Okay to downgrade from pulmonary standpoint DVT prophylaxis Critical care time 35 minutes Dietary Evaluation Review Comments: 1.Encourage PO intake to meet her needs at least @75% 2.Consider TF Nepro@35ml/hr providing 68g protein 1484kcal, 611ml free water initial rate @20ml/hr, increase by 10ml/6hrs till reaching the goal rate of 35ml/hr. 3. Consider TPN per pharmacy if EN/GI unaccessible. Expected Outcomes/Goals: Prevent catabolism, prevent muscle waisitng and weight loss. Plan discussed with: Patient JYOTI NIEVES MD May 22, 2025 12:09
--- NOTE | 2025-05-22 13:19 | DVHPN2 ---
Subjective in bed resting Reviewed: Care Plan, H&P, Labs, Medications, Previous Orders Changes from previous H/P or p: No Changes General: Per HPI Objective Vitals Vital Signs Date Time Temp Pulse Resp B/P (MAP) Pulse Ox O2 Delivery O2 Flow Rate FiO2 05/22/25 12:00 98.1 99 13 121/54 (76) 95 98.1 05/22/25 12:00 Room Air* 0 21 Intake/Output Intake and Output 05/22/25 07:00 Intake Total 1331 ml Output Total 1850 ml Balance -519 ml Intake Oral 980 ml IV Total 351 ml Output Urine Total 1850 ml General Appearance: Alert, Oriented X3, Cooperative, mild distress HEENT: Atraumatic, PERRLA Lungs: Clear to auscultation, Normal air movement Cardiovascular: Normal S1, Normal S2, Other (AFib with RVR) Abdomen: Normal bowel sounds, Soft, No tenderness, No hepatospenomegaly Genitourinary: No Apparent Abnormalities Musculoskeletal: Normal sensory function Extremities: No clubbing, No cyanosis, No edema, Normal pulses, No tenderness/swelling Neuro: Normal speech Skin: Dry, Intact Psych/Mental Status: Mental status NL, Mood NL Medications Current Medications Medications Dose Ordered Sig/Royce Route Start Time Stop Time Status Last Admin Dose Admin Guaifenesin/ Dextromethorphan 10 ml Q4HP PRN PO 05/17/25 04:30 05/17/25 17:12 10 ML Ondansetron HCl 4 mg Q4HP PRN IV 05/17/25 04:30 05/20/25 12:56 4 MG Acetaminophen 650 mg Q6HP PRN PO 05/17/25 04:30 Nitroglycerin 0.4 mg Q5MINP PRN SL 05/17/25 04:30 Morphine Sulfate 2 mg Q30M PRN IV 05/17/25 04:30 Enoxaparin Sodium 70 mg Q12HR SC 05/17/25 22:00 UNV Norepinephrine Bitartrate 32 mg/ Sodium Chloride 250 ml @ 0.938 mls/ hr Q24H IV 05/17/25 10:30 Diagnostic Test (Pha) 1 strip ACHS 05/17/25 11:30 05/22/25 10:52 1 STRIP Insulin Human Regular HS SC 05/17/25 22:00 05/20/25 21:37 3 UNITS Insulin Human Regular AC SC 05/17/25 11:30 05/22/25 10:53 3 UNITS Dextrose 50 ml UD PRN IV 05/17/25 10:30 Levalbuterol HCl 1.25 mg Q6HR NEB 05/17/25 12:00 05/22/25 11:43 1.25 MG Linezolid 300 ml @ 150 mls/hr Q12HR IV 05/17/25 22:00 05/22/25 08:44 150 MLS/HR Ipratropium [place] 0.5 mg Q6HR NEB 05/18/25 12:00 05/22/25 11:43 0.5 MG Pantoprazole Sodium 40 mg DAILY IV 05/19/25 10:00 UNV Pantoprazole Sodium 40 mg DAILY IV 05/18/25 11:15 05/22/25 07:47 40 MG Meropenem 50 ml @ 17 mls/hr Q12HR IV 05/18/25 22:00 05/22/25 07:48 17 MLS/HR Digoxin 125 mcg EOD IV 05/20/25 10:00 05/22/25 07:47 125 MCG Enoxaparin Sodium 60 mg DAILY SC 05/20/25 10:00 05/22/25 07:47 60 MG Polyethylene Glycol 17 gm DAILYPRN PRN PO 05/19/25 15:30 Bumetanide 1 mg DAILY IV 05/20/25 10:45 05/22/25 07:47 1 MG Patient Own Medication 1 BID EACHEYE 05/20/25 22:00 05/22/25 07:47 1 Patient Own Medication 1 BID EACHEYE 05/20/25 22:00 05/22/25 07:47 1 Laboratory Results Laboratory Tests 05/22/25 03:50 05/22/25 09:02 Chemistry Test 05/22/25 09:02 Albumin 2.7 g/dL (3.2-4.8) L Calcium Level 8.9 mg/dL (8.7-10.4) Total Protein 5.1 g/dL (5.7-8.2) L LFT Test 05/22/25 09:02 Alanine Aminotransferase (ALT) 976 U/L (7-40) H Alkaline Phosphatase 158 U/L (46-116) H Aspartate Amino Transferase (AST) 162 U/L (13-40) H Total Bilirubin 1.1 mg/dL (0.2-1.0) H Urinalysis Test 05/17/25 11:32 05/19/25 06:48 Urine Color Yellow (Yellow) Urine Clarity Turbid (Clear) H Urine pH 5.5 (5.0-9.0) Urine Specific [place] 1.016 (1.001-1.035) Urine Protein 1+ (Negative) H Urine Ketones 1+ (Negative) H Urine Blood Negative /uL (Negative) Urine Nitrite Negative (Negative) Urine Bilirubin Negative (Negative) Urine Urobilinogen Normal mg/dL (Negative) Urine Leukocyte Esterase Negative /uL (Negative) Urine RBC 6 /hpf (0 - 4) Urine Microscopic WBC 4 /HPF (0-5) Urine Squamous Epithelial Cells Few /hpf (<5) Urine Bacteria Few /hpf (None Seen) H Urine Hyaline Casts Mod /lpf (0 - 2) Urine Mucus Few (None Seen) Urine Glucose Normal mg/dL (Normal) Urine Creatinine 82.26 mg/dL (30.0-125.0) Urine Protein/Creatinine Ratio 1.90 Urine Sodium 24 mmol/L (40-220) L Urine Total Protein 155.9 mg/dL (1-14) H Microbiology Microbiology Date/Time Source Procedure Growth Status 05/17/25 23:45 Nose MRSA Screen - Final Complete 05/17/25 19:06 Sputum Gram Stain - Final Complete 05/17/25 19:06 Respiratory Culture - Final Shewanella putrefaciens Complete 05/17/25 11:32 Urine - [place] Urine Culture - Final Klebsiella ozaenae Complete 05/17/25 10:18 Blood Blood Culture - Final NO GROWTH AFTER 5 DAYS OF INCUBATION. Complete Assessment/Plan Assessment/Plan -sepsis -multifocal pneumonia, probable Gram-positive/Gram-negative etiology -AFib with RVR -acute on chronic systolic heart failure -acute hypoxic respiratory failure -NSTEMI, probably type secondary to sepsis -history of pulmonary embolism -acute kidney injury, vasomotor nephropathy - dyslipidemia -COPD -diabetes mellitus Plan: Events: Patient clinically improving. Urine output somewhat improved today. Patient without nausea. -advance to renal diet -antibiotic therapy: Continue Meropenem and Zyvox -cardiology consultation: Recommendations reviewed -nephrology consultation : Recommendations reviewed -O2 supplementation to keep saturation greater than 92% -lynn cultures -bronchodilators, Pulmicort, stop Mucomyst -physical therapy -repeat labs and chest x-ray In a.m. Critical care time spent with patient discussing and formulating plan of care: 40 minutes. This does not include time spent performing procedures. Plan discussed with: Patient My Orders Orders - ADITYA ROMO MD Procedure Category Date Status Time Transfer Orders XFER 05/22/25 Transmitted 12:13 Date of Service: May 22, 2025 Billing Provider: ADITYA ROMO MD Common Visit Codes: 22526-[id number] CARE 30-74 MIN ADITYA ROMO MD May 22, 2025 13:19
--- NOTE | 2025-05-22 15:31 | DVHPN2 ---
Progress Note Date Seen: May 22, 2025 Medical Necessity Reason Pt with a Central, PICC or Fol: No Subjective Patient reports: No new complaints Review of Systems: Deferred Objective vital signs Vital Sign Date Time Temp Pulse Resp B/P (MAP) Pulse Ox O2 Delivery O2 Flow Rate FiO2 05/22/25 15:00 99 14 124/61 (82) 96 05/22/25 13:45 Room Air* 0 21 05/22/25 12:00 98.1 98.1 Total Intake and Output 05/21/25 05/21/25 05/22/25 15:00 23:00 07:00 Intake Total 667 ml 664 ml Output Total 750 ml 1100 ml Balance -83 ml -436 ml medications Current Medications Medications Dose Ordered Sig/Royce Route Start Time Stop Time Status Last Admin Dose Admin Guaifenesin/ Dextromethorphan 10 ml Q4HP PRN PO 05/17/25 04:30 05/17/25 17:12 10 ML Ondansetron HCl 4 mg Q4HP PRN IV 05/17/25 04:30 05/20/25 12:56 4 MG Acetaminophen 650 mg Q6HP PRN PO 05/17/25 04:30 Nitroglycerin 0.4 mg Q5MINP PRN SL 05/17/25 04:30 Morphine Sulfate 2 mg Q30M PRN IV 05/17/25 04:30 Enoxaparin Sodium 70 mg Q12HR SC 05/17/25 22:00 UNV Norepinephrine Bitartrate 32 mg/ Sodium Chloride 250 ml @ 0.938 mls/ hr Q24H IV 05/17/25 10:30 Diagnostic Test (Pha) 1 strip ACHS 05/17/25 11:30 05/22/25 10:52 1 STRIP Insulin Human Regular HS SC 05/17/25 22:00 05/20/25 21:37 3 UNITS Insulin Human Regular AC SC 05/17/25 11:30 05/22/25 10:53 3 UNITS Dextrose 50 ml UD PRN IV 05/17/25 10:30 Levalbuterol HCl 1.25 mg Q6HR NEB 05/17/25 12:00 05/22/25 11:43 1.25 MG Linezolid 300 ml @ 150 mls/hr Q12HR IV 05/17/25 22:00 05/22/25 08:44 150 MLS/HR Ipratropium [place] 0.5 mg Q6HR NEB 05/18/25 12:00 05/22/25 11:43 0.5 MG Pantoprazole Sodium 40 mg DAILY IV 05/19/25 10:00 UNV Pantoprazole Sodium 40 mg DAILY IV 05/18/25 11:15 05/22/25 07:47 40 MG Meropenem 50 ml @ 17 mls/hr Q12HR IV 05/18/25 22:00 05/22/25 07:48 17 MLS/HR Digoxin 125 mcg EOD IV 05/20/25 10:00 05/22/25 07:47 125 MCG Enoxaparin Sodium 60 mg DAILY SC 05/20/25 10:00 05/22/25 07:47 60 MG Polyethylene Glycol 17 gm DAILYPRN PRN PO 05/19/25 15:30 Bumetanide 1 mg DAILY IV 05/20/25 10:45 05/22/25 07:47 1 MG Patient Own Medication 1 BID EACHEYE 05/20/25 22:00 05/22/25 07:47 1 Patient Own Medication 1 BID EACHEYE 05/20/25 22:00 05/22/25 07:47 1 Examination: GENERAL:Abnormal, LUNGS:Abnormal, NEURO:Normal laboratory and microbiology Laboratory Tests 05/22/25 09:02 05/22/25 03:50 Test 05/22/25 09:02 Range/Units Serum Glucose 131 H 74-106 mg/dL Microbiology Date/Time Source Procedure Growth Status 05/17/25 23:45 Nose MRSA Screen - Final Complete 05/17/25 19:06 Sputum Gram Stain - Final Complete 05/17/25 19:06 Respiratory Culture - Final Shewanella putrefaciens Complete 05/17/25 11:32 Urine - [place] Urine Culture - Final Klebsiella ozaenae Complete 05/17/25 10:18 Blood Blood Culture - Final NO GROWTH AFTER 5 DAYS OF INCUBATION. Complete Problem List/Assessment/Plan Problem List/Assessment/Plan This is a 84-year-old female with past medical history of CHF, AFib, pulmonary emboli, hypertension, dyslipidemia, hypothyroidism and COPD (on CPAP during night) brought to the hospital due to generalized weakness, lethargy, decreased oral intake and shortness of breath. KIARA on CKD (baseline record not available), hemodynamic etiology in the setting of AFib with RVR/severe sepsis Secondary hyperparathyroidism Hyperphosphatemia Sepsis, due to pneumonia Possible acute on chronic systolic heart failure AFib with RVR Non ST-elevation MD Hyperkalemia, resolved Lactic acidosis Liver cirrhosis Plan/recommendation: * Kidney function has stabilized * Bumex 1 mg IV daily Plan discussed with: Patient, Spouse Dietary Evaluation Review Comments: 1.Encourage PO intake to meet her needs at least @75% 2.Consider TF Nepro@35ml/hr providing 68g protein 1484kcal, 611ml free water initial rate @20ml/hr, increase by 10ml/6hrs till reaching the goal rate of 35ml/hr. 3. Consider TPN per pharmacy if EN/GI unaccessible. Expected Outcomes/Goals: Prevent catabolism, prevent muscle waisitng and weight loss. JAVIER MCCAIN MD May 22, 2025 15:31
[2025-05-23] VITALS (32 sets, daily range): BP systolic 118–147; BP diastolic 49–96; PULSE 85–111; RESP 11–16; TEMP 97.8–98.3; O2SAT 94–100
[2025-05-23 06:25] LABS: Hematocrit 45.7 % (36.0-46.0); Hemoglobin 15.3 g/dL (12.2-16.2); Mean Corpuscular Hemoglobin 26.9 pg (28.0-32.0); Mean Corpuscular Volume 80.3 fL (80.0-100.0); Nucleated Red Blood Cells % 0.3 %
[2025-05-23 06:33] LABS: Calcium 9.1 mg/dL (8.7-10.4); Potassium 3.9 mmol/L (3.5-5.1)
[2025-05-23 06:34] LABS: Anion Gap 14 (5-15); Carbon Dioxide 22 mmol/L (20-31)
[2025-05-23 06:36] LABS: Chloride 97 mmol/L (98-107); Sodium 133 mmol/L (136-145)
[2025-05-23 06:39] LABS: Glucose 103 mg/dL (74-106)
[2025-05-23 06:40] LABS: BUN/Creatinine Ratio 11.9 (10.0-20.0); Magnesium 2.0 mg/dL (1.6-2.6)
[2025-05-23 06:44] LABS: Blood Urea Nitrogen 45 mg/dL (9-23)
--- NOTE | 2025-05-23 12:16 | DVHPN2 ---
Subjective in bed resting Reviewed: Care Plan, H&P, Labs, Medications, Previous Orders Changes from previous H/P or p: No Changes General: Per HPI Objective Vitals Vital Signs Date Time Temp Pulse Resp B/P (MAP) Pulse Ox O2 Delivery O2 Flow Rate FiO2 05/23/25 09:20 143/69 05/23/25 08:40 98 12 94 21 05/23/25 08:20 Room Air* 0 05/23/25 04:00 98.1 98.1 Intake/Output Intake and Output 05/23/25 07:00 Intake Total 1050 ml Output Total 1150 ml Balance -100 ml Intake Oral 700 ml IV Total 350 ml Output Urine Total 1150 ml General Appearance: Alert, Oriented X3, Cooperative, mild distress HEENT: Atraumatic, PERRLA Lungs: Clear to auscultation, Normal air movement Cardiovascular: Normal S1, Normal S2, Other (AFib with RVR) Abdomen: Normal bowel sounds, Soft, No tenderness, No hepatospenomegaly Genitourinary: No Apparent Abnormalities Musculoskeletal: Normal sensory function Extremities: No clubbing, No cyanosis, No edema, Normal pulses, No tenderness/swelling Neuro: Normal speech Skin: Dry, Intact Psych/Mental Status: Mental status NL, Mood NL Medications Current Medications Medications Dose Ordered Sig/Royce Route Start Time Stop Time Status Last Admin Dose Admin Guaifenesin/ Dextromethorphan 10 ml Q4HP PRN PO 05/17/25 04:30 05/17/25 17:12 10 ML Ondansetron HCl 4 mg Q4HP PRN IV 05/17/25 04:30 05/20/25 12:56 4 MG Acetaminophen 650 mg Q6HP PRN PO 05/17/25 04:30 Nitroglycerin 0.4 mg Q5MINP PRN SL 05/17/25 04:30 Morphine Sulfate 2 mg Q30M PRN IV 05/17/25 04:30 Enoxaparin Sodium 70 mg Q12HR SC 05/17/25 22:00 UNV Norepinephrine Bitartrate 32 mg/ Sodium Chloride 250 ml @ 0.938 mls/ hr Q24H IV 05/17/25 10:30 Diagnostic Test (Pha) 1 strip ACHS 05/17/25 11:30 05/23/25 11:48 1 STRIP Insulin Human Regular HS SC 05/17/25 22:00 05/20/25 21:37 3 UNITS Insulin Human Regular AC SC 05/17/25 11:30 05/23/25 11:49 3 UNITS Dextrose 50 ml UD PRN IV 05/17/25 10:30 Levalbuterol HCl 1.25 mg Q6HR NEB 05/17/25 12:00 05/23/25 06:12 1.25 MG Linezolid 300 ml @ 150 mls/hr Q12HR IV 05/17/25 22:00 05/23/25 09:18 150 MLS/HR Ipratropium [place] 0.5 mg Q6HR NEB 05/18/25 12:00 05/23/25 06:12 0.5 MG Pantoprazole Sodium 40 mg DAILY IV 05/19/25 10:00 UNV Pantoprazole Sodium 40 mg DAILY IV 05/18/25 11:15 05/23/25 09:20 40 MG Meropenem 50 ml @ 17 mls/hr Q12HR IV 05/18/25 22:00 05/23/25 11:48 17 MLS/HR Digoxin 125 mcg EOD IV 05/20/25 10:00 05/22/25 07:47 125 MCG Enoxaparin Sodium 60 mg DAILY SC 05/20/25 10:00 05/23/25 09:19 60 MG Polyethylene Glycol 17 gm DAILYPRN PRN PO 05/19/25 15:30 Bumetanide 1 mg DAILY IV 05/20/25 10:45 05/23/25 09:20 1 MG Patient Own Medication 1 BID EACHEYE 05/20/25 22:00 05/23/25 09:20 1 Patient Own Medication 1 BID EACHEYE 05/20/25 22:00 05/23/25 09:20 1 Laboratory Results Laboratory Tests 05/23/25 05:04 Chemistry Test 05/23/25 05:04 Calcium Level 9.1 mg/dL (8.7-10.4) Magnesium Level 2.0 mg/dL (1.6-2.6) Urinalysis Test 05/17/25 11:32 05/19/25 06:48 Urine Color Yellow (Yellow) Urine Clarity Turbid (Clear) H Urine pH 5.5 (5.0-9.0) Urine Specific [place] 1.016 (1.001-1.035) Urine Protein 1+ (Negative) H Urine Ketones 1+ (Negative) H Urine Blood Negative /uL (Negative) Urine Nitrite Negative (Negative) Urine Bilirubin Negative (Negative) Urine Urobilinogen Normal mg/dL (Negative) Urine Leukocyte Esterase Negative /uL (Negative) Urine RBC 6 /hpf (0 - 4) Urine Microscopic WBC 4 /HPF (0-5) Urine Squamous Epithelial Cells Few /hpf (<5) Urine Bacteria Few /hpf (None Seen) H Urine Hyaline Casts Mod /lpf (0 - 2) Urine Mucus Few (None Seen) Urine Glucose Normal mg/dL (Normal) Urine Creatinine 82.26 mg/dL (30.0-125.0) Urine Protein/Creatinine Ratio 1.90 Urine Sodium 24 mmol/L (40-220) L Urine Total Protein 155.9 mg/dL (1-14) H Microbiology Microbiology Date/Time Source Procedure Growth Status 05/17/25 23:45 Nose MRSA Screen - Final Complete 05/17/25 19:06 Sputum Gram Stain - Final Complete 05/17/25 19:06 Respiratory Culture - Final Shewanella putrefaciens Complete 05/17/25 11:32 Urine - [place] Urine Culture - Final Klebsiella ozaenae Complete 05/17/25 10:18 Blood Blood Culture - Final NO GROWTH AFTER 5 DAYS OF INCUBATION. Complete Assessment/Plan Assessment/Plan -sepsis -multifocal pneumonia, probable Gram-positive/Gram-negative etiology -AFib with RVR -acute on chronic systolic heart failure -acute hypoxic respiratory failure -NSTEMI, probably type secondary to sepsis -history of pulmonary embolism -acute kidney injury, vasomotor nephropathy - dyslipidemia -COPD -diabetes mellitus Plan: Events: Patient clinically improving. Urine output somewhat improved today. Patient without nausea. -advance to renal diet -antibiotic therapy: Continue Meropenem and Zyvox -cardiology consultation: Recommendations reviewed -nephrology consultation : Recommendations reviewed -O2 supplementation to keep saturation greater than 92% -lynn cultures -bronchodilators, Pulmicort, stop Mucomyst -physical therapy reeval Downgraded on 05/22 Plan discussed with: Patient Date of Service: May 23, 2025 Billing Provider: ADITYA ROMO MD Common Visit Codes: [id number] INP/OBS CARE(HIGH) ADITYA ROMO MD May 23, 2025 12:16
--- NOTE | 2025-05-23 12:29 | MEDREC ---
[facility] Intervention Section I [facility] Intervention: Deescalate AB based on CS (SPUTUM CULTURE GROWING Shewanella putrefaciens - URINE CULTURE GROWING Klebsiella ozaenae <10,000 CFU/ML - MRSA NARES NEGATIVE - PLEASE CONSIDER DE-ESCALATION OF ANTBIOTICS TO CEFTRIAXONE BASED ON CULTURE RESULTS AND SUSCEPTIBILITIES - PLEASE CONSIDER D/C LINEZOLID - NARES SCREENING FOR MRSA HAS A HIGH SPECIFICITY AND NEGATIVE PREDICTIVE VALUE FOR RULING OUT MRSA PNEUMONIA ) ADDI GLOVER PHARMACIST May 23, 2025 12:28
--- NOTE | 2025-05-23 18:14 | DVHPN2 ---
Progress Note Date Seen: May 23, 2025 Medical Necessity Reason Pt with a Central, PICC or Fol: No Subjective Patient reports: No new complaints Review of Systems: Deferred Objective vital signs Vital Sign Date Time Temp Pulse Resp B/P (MAP) Pulse Ox O2 Delivery O2 Flow Rate FiO2 05/23/25 16:00 88 05/23/25 14:00 12 134/59 (84) 95 05/23/25 12:00 97.9 97.9 05/23/25 08:40 21 05/23/25 08:20 Room Air* 0 Total Intake and Output 05/22/25 05/22/25 05/23/25 15:00 23:00 07:00 Intake Total 704 ml 346 ml Output Total 800 ml 350 ml Balance -96 ml -4 ml medications Current Medications Medications Dose Ordered Sig/Royce Route Start Time Stop Time Status Last Admin Dose Admin Guaifenesin/ Dextromethorphan 10 ml Q4HP PRN PO 05/17/25 04:30 05/17/25 17:12 10 ML Ondansetron HCl 4 mg Q4HP PRN IV 05/17/25 04:30 05/20/25 12:56 4 MG Acetaminophen 650 mg Q6HP PRN PO 05/17/25 04:30 Nitroglycerin 0.4 mg Q5MINP PRN SL 05/17/25 04:30 Morphine Sulfate 2 mg Q30M PRN IV 05/17/25 04:30 Enoxaparin Sodium 70 mg Q12HR SC 05/17/25 22:00 UNV Norepinephrine Bitartrate 32 mg/ Sodium Chloride 250 ml @ 0.938 mls/ hr Q24H IV 05/17/25 10:30 Diagnostic Test (Pha) 1 strip ACHS 05/17/25 11:30 05/23/25 17:29 1 STRIP Insulin Human Regular HS SC 05/17/25 22:00 05/20/25 21:37 3 UNITS Insulin Human Regular AC SC 05/17/25 11:30 05/23/25 11:49 3 UNITS Dextrose 50 ml UD PRN IV 05/17/25 10:30 Levalbuterol HCl 1.25 mg Q6HR NEB 05/17/25 12:00 05/23/25 12:20 1.25 MG Linezolid 300 ml @ 150 mls/hr Q12HR IV 05/17/25 22:00 05/23/25 09:18 150 MLS/HR Ipratropium [place] 0.5 mg Q6HR NEB 05/18/25 12:00 05/23/25 12:20 0.5 MG Pantoprazole Sodium 40 mg DAILY IV 05/19/25 10:00 UNV Pantoprazole Sodium 40 mg DAILY IV 05/18/25 11:15 05/23/25 09:20 40 MG Meropenem 50 ml @ 17 mls/hr Q12HR IV 05/18/25 22:00 05/23/25 11:48 17 MLS/HR Digoxin 125 mcg EOD IV 05/20/25 10:00 05/22/25 07:47 125 MCG Enoxaparin Sodium 60 mg DAILY SC 05/20/25 10:00 05/23/25 09:19 60 MG Polyethylene Glycol 17 gm DAILYPRN PRN PO 05/19/25 15:30 Bumetanide 1 mg DAILY IV 05/20/25 10:45 05/23/25 09:20 1 MG Patient Own Medication 1 BID EACHEYE 05/20/25 22:00 05/23/25 09:20 1 Patient Own Medication 1 BID EACHEYE 05/20/25 22:00 05/23/25 09:20 1 Examination: MSK:Abnormal, NEURO:Abnormal laboratory and microbiology Laboratory Tests 05/23/25 05:04 Test 05/23/25 05:04 Range/Units Serum Glucose 103 74-106 mg/dL Microbiology Date/Time Source Procedure Growth Status 05/17/25 23:45 Nose MRSA Screen - Final Complete 05/17/25 19:06 Sputum Gram Stain - Final Complete 05/17/25 19:06 Respiratory Culture - Final Shewanella putrefaciens Complete 05/17/25 11:32 Urine - [place] Urine Culture - Final Klebsiella ozaenae Complete 05/17/25 10:18 Blood Blood Culture - Final NO GROWTH AFTER 5 DAYS OF INCUBATION. Complete Problem List/Assessment/Plan Problem List/Assessment/Plan This is a 84-year-old female with past medical history of CHF, AFib, pulmonary emboli, hypertension, dyslipidemia, hypothyroidism and COPD (on CPAP during night) brought to the hospital due to generalized weakness, lethargy, decreased oral intake and shortness of breath. KIARA on CKD hemodynamic etiology in the setting of AFib with RVR/severe sepsis Secondary hyperparathyroidism Hyperphosphatemia Sepsis, due to pneumonia Possible acute on chronic systolic heart failure AFib with RVR Non ST-elevation [place] Hyperkalemia, resolved Lactic acidosis Liver cirrhosis Plan/recommendation: * Kidney function has stabilized * Bumex 1 mg IV daily Plan discussed with: Patient, Spouse Dietary Evaluation Review Comments: 1.Encourage PO intake to meet her needs at least @75% 2.Consider TF Nepro@35ml/hr providing 68g protein 1484kcal, 611ml free water initial rate @20ml/hr, increase by 10ml/6hrs till reaching the goal rate of 35ml/hr. 3. Consider TPN per pharmacy if EN/GI unaccessible. Expected Outcomes/Goals: Prevent catabolism, prevent muscle waisitng and weight loss. JAVIER MCCAIN MD May 23, 2025 18:14
[2025-05-24] VITALS (26 sets, daily range): BP systolic 109–142; BP diastolic 56–83; PULSE 75–107; RESP 12–18; TEMP 97.5–98; O2SAT 91–100
[2025-05-24] MEDS: IPRATROPIUM BROM 0.5 MG/2.5ML INH SOL ONE (05:42)
[2025-05-24] MEDS: LEVALBUTEROL HCL 1.25 MG/3 ML NEB ONE (05:42)
--- NOTE | 2025-05-24 10:50 | DVHPN2 ---
Progress Note Date Seen: May 24, 2025 Medical Necessity Reason Pt with a Central, PICC or Fol: No Subjective Changes from previous H/P or p: No Changes Objective vital signs Vital Sign Date Time Temp Pulse Resp B/P (MAP) Pulse Ox O2 Delivery O2 Flow Rate FiO2 05/24/25 10:34 108 05/24/25 10:31 131/64 05/24/25 07:30 13 98 Room Air* 0 21 05/24/25 00:00 97.7 97.7 Total Intake and Output 05/23/25 05/23/25 05/24/25 15:00 23:00 07:00 Intake Total 350 ml 497 ml 251 ml Output Total 825 ml 700 ml Balance 350 ml -328 ml -449 ml medications Current Medications Medications Dose Ordered Sig/Royce Route Start Time Stop Time Status Last Admin Dose Admin Guaifenesin/ Dextromethorphan 10 ml Q4HP PRN PO 05/17/25 04:30 05/17/25 17:12 10 ML Ondansetron HCl 4 mg Q4HP PRN IV 05/17/25 04:30 05/24/25 02:39 4 MG Acetaminophen 650 mg Q6HP PRN PO 05/17/25 04:30 Nitroglycerin 0.4 mg Q5MINP PRN SL 05/17/25 04:30 Morphine Sulfate 2 mg Q30M PRN IV 05/17/25 04:30 Enoxaparin Sodium 70 mg Q12HR SC 05/17/25 22:00 UNV Norepinephrine Bitartrate 32 mg/ Sodium Chloride 250 ml @ 0.938 mls/ hr Q24H IV 05/17/25 10:30 Diagnostic Test (Pha) 1 strip ACHS 05/17/25 11:30 05/24/25 06:59 1 STRIP Insulin Human Regular HS SC 05/17/25 22:00 05/20/25 21:37 3 UNITS Insulin Human Regular AC SC 05/17/25 11:30 05/23/25 11:49 3 UNITS Dextrose 50 ml UD PRN IV 05/17/25 10:30 Levalbuterol HCl 1.25 mg Q6HR NEB 05/17/25 12:00 05/24/25 05:44 1.25 MG Ipratropium [place] 0.5 mg Q6HR NEB 05/18/25 12:00 05/24/25 05:43 0.5 MG Pantoprazole Sodium 40 mg DAILY IV 05/19/25 10:00 UNV Pantoprazole Sodium 40 mg DAILY IV 05/18/25 11:15 05/24/25 10:34 40 MG Digoxin 125 mcg EOD IV 05/20/25 10:00 05/24/25 10:34 125 MCG Enoxaparin Sodium 60 mg DAILY SC 05/20/25 10:00 05/24/25 10:34 60 MG Polyethylene Glycol 17 gm DAILYPRN PRN PO 05/19/25 15:30 Bumetanide 1 mg DAILY IV 05/20/25 10:45 05/24/25 10:31 1 MG Patient Own Medication 1 BID EACHEYE 05/20/25 22:00 05/24/25 10:36 1 Patient Own Medication 1 BID EACHEYE 05/20/25 22:00 05/24/25 10:36 1 Levofloxacin/ Dextrose 100 ml @ 100 mls/hr DAILY IV 05/25/25 10:00 UNV Examination: GENERAL:Abnormal, CVS:Abnormal laboratory and microbiology Laboratory Tests 05/23/25 05:04 Test 05/23/25 05:04 Range/Units Serum Glucose 103 74-106 mg/dL Microbiology Date/Time Source Procedure Growth Status 05/17/25 23:45 Nose MRSA Screen - Final Complete 05/17/25 19:06 Sputum Gram Stain - Final Complete 05/17/25 19:06 Respiratory Culture - Final Shewanella putrefaciens Complete 05/17/25 11:32 Urine - [place] Urine Culture - Final Klebsiella ozaenae Complete 05/17/25 10:18 Blood Blood Culture - Final NO GROWTH AFTER 5 DAYS OF INCUBATION. Complete Problem List/Assessment/Plan Problem List/Assessment/Plan This is a 84-year-old female with past medical history of CHF, AFib, pulmonary emboli, hypertension, dyslipidemia, hypothyroidism and COPD (on CPAP during night) brought to the hospital due to generalized weakness, lethargy, decreased oral intake and shortness of breath. KIARA on CKD hemodynamic etiology in the setting of AFib with RVR/severe sepsis Secondary hyperparathyroidism Hyperphosphatemia Sepsis, due to pneumonia acute on chronic systolic heart failure AFib with RVR Non ST-elevation [place] Hyperkalemia, resolved Lactic acidosis Liver cirrhosis labs pending agree with diurtics fluid restriction low salt diet cardiology Plan discussed with: Patient Dietary Evaluation Review Comments: 1.Encourage PO intake to meet her needs at least @75% 2.Consider TF Nepro@35ml/hr providing 68g protein 1484kcal, 611ml free water initial rate @20ml/hr, increase by 10ml/6hrs till reaching the goal rate of 35ml/hr. 3. Consider TPN per pharmacy if EN/GI unaccessible. Expected Outcomes/Goals: Prevent catabolism, prevent muscle waisitng and weight loss. ALEXANDREA PRINGLE MD May 24, 2025 10:50
--- NOTE | 2025-05-24 11:12 | DVH ---
CHEST RADIOGRAPH Indication: pna Technique: Single frontal view of the chest was obtained Comparison: XY CHEST XRAY 1 VIEW on DOS: 05/21/25, XY CHEST XRAY 1 VIEW on DOS: 05/20/25, XY CHEST XRAY 1 VIEW on DOS: 05/19/25, XY CHEST PORTABLE on DOS: 05/18/25, XY CHEST XRAY 1 VIEW on DOS: 05/17/25, XY CHEST XRAY 1 VIEW on DOS: 05/21/25 FINDINGS: Cardiac silhouette is enlarged. Mild prominence of the pulmonary vasculature. Small bilateral pleural effusions with mild bibasilar atelectasis /consolidation. IMPRESSION: 1. Cardiomegaly with mild pulmonary vascular congestion. 2. Small bilateral pleural effusions with mild bibasilar atelectasis/consolidation.
--- NOTE | 2025-05-24 11:29 | DVHPN2 ---
Subjective Patient denies any symptoms at this time. Reviewed: Care Plan, H&P, Labs, Medications, Previous Orders Changes from previous H/P or p: No Changes General: Per HPI Objective Vitals Vital Signs Date Time Temp Pulse Resp B/P (MAP) Pulse Ox O2 Delivery O2 Flow Rate FiO2 05/24/25 10:34 108 05/24/25 10:31 131/64 05/24/25 07:30 13 98 Room Air* 0 21 05/24/25 00:00 97.7 97.7 Intake/Output Intake and Output 05/24/25 07:00 Intake Total 1098 ml Output Total 1525 ml Balance -427 ml Intake Oral 680 ml IV Total 418 ml Output Urine Total 1525 ml General Appearance: Alert, Oriented X3, Cooperative, mild distress HEENT: Atraumatic, PERRLA Lungs: Clear to auscultation, Normal air movement Cardiovascular: Normal S1, Normal S2, Other (AFib with RVR) Abdomen: Normal bowel sounds, Soft, No tenderness, No hepatospenomegaly Genitourinary: No Apparent Abnormalities Musculoskeletal: Normal sensory function Extremities: No clubbing, No cyanosis, No edema, Normal pulses, No tenderness/swelling Neuro: Normal speech Skin: Dry, Intact Psych/Mental Status: Mental status NL, Mood NL Medications Current Medications Medications Dose Ordered Sig/Royce Route Start Time Stop Time Status Last Admin Dose Admin Guaifenesin/ Dextromethorphan 10 ml Q4HP PRN PO 05/17/25 04:30 05/17/25 17:12 10 ML Ondansetron HCl 4 mg Q4HP PRN IV 05/17/25 04:30 05/24/25 02:39 4 MG Acetaminophen 650 mg Q6HP PRN PO 05/17/25 04:30 Nitroglycerin 0.4 mg Q5MINP PRN SL 05/17/25 04:30 Morphine Sulfate 2 mg Q30M PRN IV 05/17/25 04:30 Enoxaparin Sodium 70 mg Q12HR SC 05/17/25 22:00 UNV Norepinephrine Bitartrate 32 mg/ Sodium Chloride 250 ml @ 0.938 mls/ hr Q24H IV 05/17/25 10:30 Diagnostic Test (Pha) 1 strip ACHS 05/17/25 11:30 05/24/25 06:59 1 STRIP Insulin Human Regular HS SC 05/17/25 22:00 05/20/25 21:37 3 UNITS Insulin Human Regular AC SC 05/17/25 11:30 05/23/25 11:49 3 UNITS Dextrose 50 ml UD PRN IV 05/17/25 10:30 Levalbuterol HCl 1.25 mg Q6HR NEB 05/17/25 12:00 05/24/25 05:44 1.25 MG Ipratropium [place] 0.5 mg Q6HR NEB 05/18/25 12:00 05/24/25 05:43 0.5 MG Pantoprazole Sodium 40 mg DAILY IV 05/19/25 10:00 UNV Pantoprazole Sodium 40 mg DAILY IV 05/18/25 11:15 05/24/25 10:34 40 MG Polyethylene Glycol 17 gm DAILYPRN PRN PO 05/19/25 15:30 Bumetanide 1 mg DAILY IV 05/20/25 10:45 05/24/25 10:31 1 MG Patient Own Medication 1 BID EACHEYE 05/20/25 22:00 05/24/25 10:36 1 Patient Own Medication 1 BID EACHEYE 05/20/25 22:00 05/24/25 10:36 1 Levofloxacin/ Dextrose 100 ml @ 100 mls/hr DAILY IV 05/25/25 10:00 UNV Apixaban 2.5 mg BID PO 05/24/25 22:00 UNV Laboratory Results Laboratory Tests 05/23/25 05:04 Urinalysis Test 05/17/25 11:32 05/19/25 06:48 Urine Color Yellow (Yellow) Urine Clarity Turbid (Clear) H Urine pH 5.5 (5.0-9.0) Urine Specific [place] 1.016 (1.001-1.035) Urine Protein 1+ (Negative) H Urine Ketones 1+ (Negative) H Urine Blood Negative /uL (Negative) Urine Nitrite Negative (Negative) Urine Bilirubin Negative (Negative) Urine Urobilinogen Normal mg/dL (Negative) Urine Leukocyte Esterase Negative /uL (Negative) Urine RBC 6 /hpf (0 - 4) Urine Microscopic WBC 4 /HPF (0-5) Urine Squamous Epithelial Cells Few /hpf (<5) Urine Bacteria Few /hpf (None Seen) H Urine Hyaline Casts Mod /lpf (0 - 2) Urine Mucus Few (None Seen) Urine Glucose Normal mg/dL (Normal) Urine Creatinine 82.26 mg/dL (30.0-125.0) Urine Protein/Creatinine Ratio 1.90 Urine Sodium 24 mmol/L (40-220) L Urine Total Protein 155.9 mg/dL (1-14) H Microbiology Microbiology Date/Time Source Procedure Growth Status 05/17/25 23:45 Nose MRSA Screen - Final Complete 05/17/25 19:06 Sputum Gram Stain - Final Complete 05/17/25 19:06 Respiratory Culture - Final Shewanella putrefaciens Complete 05/17/25 11:32 Urine - [place] Urine Culture - Final Klebsiella ozaenae Complete 05/17/25 10:18 Blood Blood Culture - Final NO GROWTH AFTER 5 DAYS OF INCUBATION. Complete Labs and/or images reviewed: Labs reviewed by me, Image(s) reviewed by me Assessment/Plan Assessment/Plan Impression: -sepsis -multifocal pneumonia, probable Gram-positive/Gram-negative etiology -AFib with RVR -acute on chronic systolic heart failure -acute hypoxic respiratory failure -NSTEMI, probably type secondary to sepsis -history of pulmonary embolism -acute kidney injury, vasomotor nephropathy - dyslipidemia -COPD -diabetes mellitus Plan: Events: Patient clinically improving. Renal function stabilizing -urine and sputum culture reviewed. Deescalate antibiotic therapy to Levaquin -cardiology consultation: Recommendations reviewed -nephrology consultation : Recommendations reviewed -stop digoxin. Rate control with metoprolol tartrate -stop Lovenox, transitioned to Eliquis -bronchodilators prn -physical therapy -transfer to telemetry floor Total time spent with patient discussing and formulating plan of care: 35 minutes. This medical document was created using an electronic medical record system with [id number] dictation system. Although this document has been carefully reviewed, there may still be some phonetic and typographical errors. These areas are purely typographical due to imperfections of the software programs, and do not reflect any compromise in the patient's medical care. Plan discussed with: Patient, Other (RN) My Orders Orders - BRIAN AGUIRRE LAMINATION INSPECTOR Procedure Category Date Status Time Chest Xray 1 View XY 05/24/25 Resulted 10:02 Comprehensive LAB 05/24/25 Logged Metabolic Panel 10:02 Levofloxacin 500mg PHA 05/25/25 Pending (Levaquin 500mg/ 100m 10:00 Renal DIET 05/24/25 Transmitted Standard(2gna,3gk,Lopho) Lunch Apixaban (Eliquis) PHA 05/24/25 Logged 22:00 Transfer Orders XFER 05/24/25 Verified 11:25 Metoprolol Tartrate PHA 05/24/25 Verified Tablet (Lopressor Ta 22:00 Date of Service: May 24, 2025 Billing Provider: BRIAN AGUIRRE NP Common Visit Codes: [id number] INP/OBS CARE(HIGH) BRIAN AGUIRRE NP May 24, 2025 11:29
[2025-05-24 12:41] LABS: Anion Gap 13 (5-15); BUN/Creatinine Ratio 16.6 (10.0-20.0); Calcium 9.0 mg/dL (8.7-10.4); Carbon Dioxide 23 mmol/L (20-31); Potassium 3.8 mmol/L (3.5-5.1)
[2025-05-24 12:44] LABS: Alanine Aminotransferase 580 U/L (7-40); Albumin 3.1 g/dL (3.2-4.8); Alkaline Phosphatase 149 U/L (46-116); Bilirubin, Total 1.3 mg/dL (0.2-1.0); Blood Urea Nitrogen 54 mg/dL (9-23); Chloride 98 mmol/L (98-107); Glucose 122 mg/dL (74-106); Sodium 134 mmol/L (136-145); Total Protein 5.7 g/dL (5.7-8.2)
[2025-05-24 13:04] LABS: Alanine Aminotransferase 584.0 U/L (7-40); Alkaline Phosphatase 150.0 U/L (46-116)
[2025-05-24 13:05] LABS: Albumin 2.8 g/dL (3.2-4.8); Bilirubin, Direct 0.5 mg/dL (<0.3); Bilirubin, Total 1.3 mg/dL (0.2-1.0); Total Protein 5.2 g/dL (5.7-8.2)
--- NOTE | 2025-05-24 13:09 | DVHPN2 ---
Consult Progress Note Date Seen: May 24, 2025 Subjective Review of Systems: CVS:Normal, RESPIRATORY:Normal, NEURO:Normal Other Systems: Denies any cardiac symptoms. No overnight events reported Objective vital signs Vital Sign Date Time Temp Pulse Resp B/P (MAP) Pulse Ox O2 Delivery O2 Flow Rate FiO2 05/24/25 11:58 94 16 100 05/24/25 11:52 Nasal Cannula 1.0 05/24/25 11:52 24 05/24/25 10:31 131/64 05/24/25 00:00 97.7 97.7 Total Intake and Output 05/23/25 05/23/25 05/24/25 15:00 23:00 07:00 Intake Total 350 ml 497 ml 251 ml Output Total 825 ml 700 ml Balance 350 ml -328 ml -449 ml medications Current Medications Medications Dose Ordered Sig/Royce Route Start Time Stop Time Status Last Admin Dose Admin Guaifenesin/ Dextromethorphan 10 ml Q4HP PRN PO 05/17/25 04:30 05/17/25 17:12 10 ML Ondansetron HCl 4 mg Q4HP PRN IV 05/17/25 04:30 05/24/25 02:39 4 MG Acetaminophen 650 mg Q6HP PRN PO 05/17/25 04:30 Nitroglycerin 0.4 mg Q5MINP PRN SL 05/17/25 04:30 Morphine Sulfate 2 mg Q30M PRN IV 05/17/25 04:30 Enoxaparin Sodium 70 mg Q12HR SC 05/17/25 22:00 UNV Diagnostic Test (Pha) 1 strip ACHS 05/17/25 11:30 05/24/25 12:24 1 STRIP Insulin Human Regular HS SC 05/17/25 22:00 05/20/25 21:37 3 UNITS Insulin Human Regular AC SC 05/17/25 11:30 05/24/25 12:24 2 UNITS Dextrose 50 ml UD PRN IV 05/17/25 10:30 Levalbuterol HCl 1.25 mg Q6HR NEB 05/17/25 12:00 05/24/25 11:52 1.25 MG Ipratropium [place] 0.5 mg Q6HR NEB 05/18/25 12:00 05/24/25 11:52 0.5 MG Pantoprazole Sodium 40 mg DAILY IV 05/19/25 10:00 UNV Pantoprazole Sodium 40 mg DAILY IV 05/18/25 11:15 05/24/25 10:34 40 MG Polyethylene Glycol 17 gm DAILYPRN PRN PO 05/19/25 15:30 Bumetanide 1 mg DAILY IV 05/20/25 10:45 05/24/25 10:31 1 MG Patient Own Medication 1 BID EACHEYE 05/20/25 22:00 05/24/25 10:36 1 Patient Own Medication 1 BID EACHEYE 05/20/25 22:00 05/24/25 10:36 1 Levofloxacin/ Dextrose 100 ml @ 100 mls/hr Q2D IV 05/25/25 10:00 Apixaban 2.5 mg BID PO 05/24/25 22:00 Metoprolol Tartrate 12.5 mg BID PO 05/24/25 22:00 Examination: GENERAL:Abnormal (Generalized weakness, improving), LUNGS:Normal, CVS:Normal (A-fib controlled rate), NEURO:Normal laboratory and microbiology Laboratory Tests 05/24/25 11:24 05/23/25 05:04 Test 05/24/25 11:24 Range/Units Serum Glucose 122 H 74-106 mg/dL Problem List/Assessment/Plan Problem List/Assessment/Plan Sepsis with multifocal PNA Acute on chronic hypoxic respiratory failure Acute on chronic decompensated HFrEF, NYHA Class IV Non-ischemic cardiomyopathy (-[facility] in 2022) Likely persistent AFib with RVR, stage IIIB (on Eliquis/metoprolol therapy) COPD/emphysema exacerbation NSTEMI, likely type 2 secondary to above Pulmonary hypertension, moderate degree Tricuspid regurgitation, moderate degree Severe aortic sclerosis rule out severe (low-flow low-gradient) Hx of PE in 2022 Pre-diabetes mellitus Thyroid disease Dyslipidemia Shocked liver Acute kidney injury Hyperparathyroidism ?secondary * Transthoracic echocardiogram revealed LVEF 25% with RV dysfunction, biatrial enlargement, severe aortic sclerosis cannot rule out given low-flow status, moderate tricuspid regurgitation * Twelve-lead electrocardiograms revealed an atrial fibrillation rhythm with intermittent RVR and no ST-T wave segment changes suggestive of acute ischemia * CXR revealed cardiomegaly with mild pulmonary vascular congestion and small bilateral pleural effusions. Mild bilateral lower zone pulmonary airspace disease * Serial troponin levels flat at 400s ng/L x2 * [facility]: * WBC 22.0, BNP 573, Troponin up to 0.20 ng/mL, TSH 0.03, lactic acid 2.7, D- dimer 0.98 * CXR 1 view: cardiomegaly with increasing interstitial markings especially in the middle HS. Infection versus congestive failure or bolus in the differential * CT head w/o contrast: No CT evidence of an acute intracranial abnormality. Intermediate areas of extensive soft tissue emphysema tracking along the cavernous sinuses and likely along the venous structures likely related to iatrogenic injection of the air and less likely related to soft tissue infection. Correlate with clinical exam * CT chest-abdomen pelvis w/o contrast: Small bilateral pleural effusions with bilateral lower lobe predominant cylindrical bronchiectasis and peribronchial thickening. Patchy areas of consolidation with marginal ground-glass versus masses. Prominent mediastinal lymphadenopathy. Large amount of stool burden with in the lower rectum. Broad differential includes infection however neoplastic disease not excluded mediastinal lymphadenopathy might be reactive versus neoplastic Plan/Recommendation (Dr. Swanson) The patient will be scheduled for an eventual dobutamine stress echocardiogram to rule out severe aortic valve stenosis (LF-LG). In the meantime, continue rate control with metoprolol. Continue DOAC therapy with low-dose Eliquis ([id number] Score 5 points, HAS-BLED Score 1 point). Monitor electrolytes, renal function, and liver enzymes closely. Strict I&Os. Continue Nephrology & GI recommendations. Abx therapy per primary care team. Further orders per clinical course. Thank you for allowing us to participate in this patient's care. Please call if you have any questions or concerns. Critical care time: 30 min. This medical document was created using an electronic medical record system with voice recognition software and computerized dictation system. Although this document has been carefully reviewed, there might still be some phonetic and typographical errors. Occasional wrong-word or ``sound-alike substitutions may have occurred due to the inherent limitations of voice recognition software. These areas are purely typographical due to imperfections of the software programs and do not reflect any compromise in the patient's medical care. Please read the chart carefully and recognize, using context, where these substitutions have occurred. Plan discussed with: Patient, Spouse, Other Dietary Evaluation Review Comments: 1.Encourage PO intake to meet her needs at least @75% 2.Consider TF Nepro@35ml/hr providing 68g protein 1484kcal, 611ml free water initial rate @20ml/hr, increase by 10ml/6hrs till reaching the goal rate of 35ml/hr. 3. Consider TPN per pharmacy if EN/GI unaccessible. Expected Outcomes/Goals: Prevent catabolism, prevent muscle waisitng and weight loss. Date of Service: May 24, 2025 Billing Provider: OLGA GILL Cardiology Common Codes: [id number] CARE 30-74 MIN OLGA GILL May 24, 2025 13:09
--- NOTE | 2025-05-24 14:15 | DVHPN2 ---
Progress Note - Dictate Date Seen: May 24, 2025 Medical Necessity Reason Pt with a Central, PICC or Fol: No Subjective No new complaints Liver enzymes bumped up with the weekend There are starting to trend down again vital signs Vital Sign Date Time Temp Pulse Resp B/P (MAP) Pulse Ox O2 Delivery O2 Flow Rate FiO2 05/24/25 13:00 105 12 125/76 (92) 98 05/24/25 12:00 97.7 97.7 05/24/25 11:52 Nasal Cannula 1.0 05/24/25 11:52 24 Total Intake and Output 05/23/25 05/23/25 05/24/25 15:00 23:00 07:00 Intake Total 350 ml 497 ml 251 ml Output Total 825 ml 700 ml Balance 350 ml -328 ml -449 ml medications Current Medications Medications Dose Ordered Sig/Royce Route Start Time Stop Time Status Last Admin Dose Admin Guaifenesin/ Dextromethorphan 10 ml Q4HP PRN PO 05/17/25 04:30 05/17/25 17:12 10 ML Ondansetron HCl 4 mg Q4HP PRN IV 05/17/25 04:30 05/24/25 02:39 4 MG Acetaminophen 650 mg Q6HP PRN PO 05/17/25 04:30 Nitroglycerin 0.4 mg Q5MINP PRN SL 05/17/25 04:30 Morphine Sulfate 2 mg Q30M PRN IV 05/17/25 04:30 Enoxaparin Sodium 70 mg Q12HR SC 05/17/25 22:00 UNV Diagnostic Test (Pha) 1 strip ACHS 05/17/25 11:30 05/24/25 12:24 1 STRIP Insulin Human Regular HS SC 05/17/25 22:00 05/20/25 21:37 3 UNITS Insulin Human Regular AC SC 05/17/25 11:30 05/24/25 12:24 2 UNITS Dextrose 50 ml UD PRN IV 05/17/25 10:30 Levalbuterol HCl 1.25 mg Q6HR NEB 05/17/25 12:00 05/24/25 11:52 1.25 MG Ipratropium [place] 0.5 mg Q6HR NEB 05/18/25 12:00 05/24/25 11:52 0.5 MG Pantoprazole Sodium 40 mg DAILY IV 05/19/25 10:00 UNV Pantoprazole Sodium 40 mg DAILY IV 05/18/25 11:15 05/24/25 10:34 40 MG Polyethylene Glycol 17 gm DAILYPRN PRN PO 05/19/25 15:30 Bumetanide 1 mg DAILY IV 05/20/25 10:45 05/24/25 10:31 1 MG Patient Own Medication 1 BID EACHEYE 05/20/25 22:00 05/24/25 10:36 1 Patient Own Medication 1 BID EACHEYE 05/20/25 22:00 05/24/25 10:36 1 Levofloxacin/ Dextrose 100 ml @ 100 mls/hr Q2D IV 05/25/25 10:00 Apixaban 2.5 mg BID PO 05/24/25 22:00 Metoprolol Tartrate 25 mg BID PO 05/24/25 22:00 objective Gen - no pallor, no scleral icterus Skin - Patients skin is warm and dry. HEENT - normocephalic, atraumatic, dry mucous membranes. Neck - supple, no lymphadenopathy Pulmonary - B/L decreased breath sounds in the bases with the crackles cardiovascular - regular S1,S2 heard GI - soft nontender abdomen. Bowel sounds normoactive. Neurological - Patient is alert and oriented x3 and is following commands laboratory and microbiology Laboratory Tests 05/24/25 11:24 05/23/25 05:04 Test 05/24/25 11:24 Range/Units Serum Glucose 122 H 74-106 mg/dL Problems(with codes): (1) Transaminitis (2) Shock liver (3) NSTEMI (non-ST elevated myocardial infarction) (4) Afib Prognosis Plan Patient is downgraded to telemetry Continue to monitor labs; hepatitis panel is negative Check KRUPA and serum ferritin Ultrasound shows underlying evidence of cirrhosis, patient is well compensated Dietary Evaluation Review Comments: 1.Encourage PO intake to meet her needs at least @75% 2.Consider TF Nepro@35ml/hr providing 68g protein 1484kcal, 611ml free water initial rate @20ml/hr, increase by 10ml/6hrs till reaching the goal rate of 35ml/hr. 3. Consider TPN per pharmacy if EN/GI unaccessible. Expected Outcomes/Goals: Prevent catabolism, prevent muscle waisitng and weight loss. Plan discussed with: Patient, Spouse PARIS VAUGHN MD May 24, 2025 14:15
[2025-05-24 16:15] LABS: INR 1.2 (0.9-1.15); Prothrombin Time 12.5 sec (9.3-11.8)
[2025-05-24] MEDS ORDERED: METOPROLOL TARTRATE 25 MG TAB PO SCH (22:00)
[2025-05-24] MEDS: METOPROLOL TARTRATE 25 MG TAB PO SCH (22:00)
[2025-05-24] MEDS: APIXABAN 2.5 MG TAB PO SCH (22:16)
[2025-05-25] VITALS (17 sets, daily range): BP systolic 105–145; BP diastolic 60–84; PULSE 26–88; RESP 16–18; TEMP 97.5–98.3; O2SAT 96–100
--- NOTE | 2025-05-25 06:53 | ECG ---
[facility] Test Date: 2025-05-17 Test Time: 01:18:21 Pat Name: KELSEY LAI Department: [facility] ED Patient ID: [facility]-[id number] Room: 0218T B Gender: F [place]: LEOPOLDO : 1940 Requested By: SANDRA DUARTE Order Number: [id number] Reading MD: Keagan Knight Measurements Intervals [place] Rate: 91 P: 0 [place]: 0 QRS: 138 QRSD: 86 T: 75 QT: 385 QTc: 474 Interpretive Statements Atrial fibrillation Probable lateral infarct, age indeterminate Anterior infarct, old Electronically Signed On 05-25-2025 17:35:03 PST by Keagan Knight Please click the below link to view image of tracing.
--- NOTE | 2025-05-25 06:53 | ECG ---
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
--- NOTE | 2025-05-25 06:53 | ECG ---
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
[2025-05-25 07:31] LABS: Hemoglobin 14.2 g/dL (12.2-16.2)
[2025-05-25 07:33] LABS: Hematocrit 42.5 % (36.0-46.0); Mean Corpuscular Hemoglobin 27.0 pg (28.0-32.0); Mean Corpuscular Volume 80.9 fL (80.0-100.0); Nucleated Red Blood Cells % 0.2 %
[2025-05-25 07:51] LABS: Anion Gap 13 (5-15); BUN/Creatinine Ratio 18.0 (10.0-20.0); Carbon Dioxide 24 mmol/L (20-31); Chloride 100 mmol/L (98-107); Potassium 3.6 mmol/L (3.5-5.1); Sodium 137 mmol/L (136-145)
[2025-05-25 07:52] LABS: Bilirubin, Total 1.1 mg/dL (0.2-1.0)
[2025-05-25 07:53] LABS: Alanine Aminotransferase 439 U/L (7-40); Albumin 2.6 g/dL (3.2-4.8); Alkaline Phosphatase 123 U/L (46-116); Blood Urea Nitrogen 52 mg/dL (9-23); Calcium 8.6 mg/dL (8.7-10.4); Glucose 74 mg/dL (74-106); Total Protein 4.9 g/dL (5.7-8.2)
--- NOTE | 2025-05-25 10:04 | DVHPN2 ---
Consult Progress Note Date Seen: May 25, 2025 Subjective Patient reports: Feels better Review of Systems: CVS:Normal, RESPIRATORY:Normal, NEURO:Normal Other Systems: Denies any cardiac symptoms Objective vital signs Vital Sign Date Time Temp Pulse Resp B/P (MAP) Pulse Ox O2 Delivery O2 Flow Rate FiO2 05/25/25 08:53 97.9 88 16 105/69 (81) 96 97.9 05/25/25 06:27 Nasal Cannula* 2 28 Total Intake and Output 05/24/25 05/24/25 05/25/25 15:00 23:00 07:00 Intake Total 500 ml 0 ml Output Total 650 ml Balance -150 ml 0 ml medications Current Medications Medications Dose Ordered Sig/Royce Route Start Time Stop Time Status Last Admin Dose Admin Guaifenesin/ Dextromethorphan 10 ml Q4HP PRN PO 05/17/25 04:30 05/17/25 17:12 10 ML Ondansetron HCl 4 mg Q4HP PRN IV 05/17/25 04:30 05/24/25 02:39 4 MG Acetaminophen 650 mg Q6HP PRN PO 05/17/25 04:30 Nitroglycerin 0.4 mg Q5MINP PRN SL 05/17/25 04:30 Morphine Sulfate 2 mg Q30M PRN IV 05/17/25 04:30 Enoxaparin Sodium 70 mg Q12HR SC 05/17/25 22:00 UNV Diagnostic Test (Pha) 1 strip ACHS 05/17/25 11:30 05/25/25 06:09 1 STRIP Insulin Human Regular HS SC 05/17/25 22:00 05/20/25 21:37 3 UNITS Insulin Human Regular AC SC 05/17/25 11:30 05/24/25 17:29 2 UNITS Dextrose 50 ml UD PRN IV 05/17/25 10:30 Levalbuterol HCl 1.25 mg Q6HR NEB 05/17/25 12:00 05/25/25 06:27 1.25 MG Ipratropium [place] 0.5 mg Q6HR NEB 05/18/25 12:00 05/25/25 06:27 0.5 MG Pantoprazole Sodium 40 mg DAILY IV 05/19/25 10:00 UNV Pantoprazole Sodium 40 mg DAILY IV 05/18/25 11:15 05/24/25 10:34 40 MG Polyethylene Glycol 17 gm DAILYPRN PRN PO 05/19/25 15:30 Bumetanide 1 mg DAILY IV 05/20/25 10:45 05/24/25 10:31 1 MG Patient Own Medication 1 BID EACHEYE 05/20/25 22:00 05/24/25 22:24 1 Patient Own Medication 1 BID EACHEYE 05/20/25 22:00 05/24/25 22:24 1 Levofloxacin/ Dextrose 100 ml @ 100 mls/hr Q2D IV 05/25/25 10:00 Apixaban 2.5 mg BID PO 05/24/25 22:00 05/24/25 22:16 2.5 MG Metoprolol Tartrate 25 mg BID PO 05/24/25 22:00 Examination: LUNGS:Abnormal (Diminished, improving), CVS:Normal (A-fib controlled rate), NEURO:Normal laboratory and microbiology Laboratory Tests 05/25/25 05:17 Test 05/25/25 05:17 Range/Units Serum Glucose 74 74-106 mg/dL Problem List/Assessment/Plan Problem List/Assessment/Plan Sepsis with multifocal PNA Acute on chronic hypoxic respiratory failure Acute on chronic decompensated HFrEF, NYHA Class IV Non-ischemic cardiomyopathy (-[facility] in 2022) Likely persistent AFib with RVR, stage IIIB (on Eliquis/metoprolol therapy) COPD/emphysema exacerbation NSTEMI, likely type 2 secondary to above Pulmonary hypertension, moderate degree Tricuspid regurgitation, moderate degree Severe aortic sclerosis rule out severe (low-flow low-gradient) Hx of PE in 2022 Pre-diabetes mellitus Thyroid disease Dyslipidemia Shocked liver Acute kidney injury Hyperparathyroidism ?secondary * Transthoracic echocardiogram revealed LVEF 25% with RV dysfunction, biatrial enlargement, severe aortic sclerosis cannot rule out given low-flow status, moderate tricuspid regurgitation * Twelve-lead electrocardiograms revealed an atrial fibrillation rhythm with intermittent RVR and no ST-T wave segment changes suggestive of acute ischemia * CXR revealed cardiomegaly with mild pulmonary vascular congestion and small bilateral pleural effusions. Mild bilateral lower zone pulmonary airspace disease * Serial troponin levels flat at 400s ng/L x2 * [facility]: * WBC 22.0, BNP 573, Troponin up to 0.20 ng/mL, TSH 0.03, lactic acid 2.7, D- dimer 0.98 * CXR 1 view: cardiomegaly with increasing interstitial markings especially in the middle HS. Infection versus congestive failure or bolus in the differential * CT head w/o contrast: No CT evidence of an acute intracranial abnormality. Intermediate areas of extensive soft tissue emphysema tracking along the cavernous sinuses and likely along the venous structures likely related to iatrogenic injection of the air and less likely related to soft tissue infection. Correlate with clinical exam * CT chest-abdomen pelvis w/o contrast: Small bilateral pleural effusions with bilateral lower lobe predominant cylindrical bronchiectasis and peribronchial thickening. Patchy areas of consolidation with marginal ground-glass versus masses. Prominent mediastinal lymphadenopathy. Large amount of stool burden with in the lower rectum. Broad differential includes infection however neoplastic disease not excluded mediastinal lymphadenopathy might be reactive versus neoplastic Plan/Recommendation (Dr. Swanson) Discussed case in full detail with Dr. Swanson. Continue with eventual dobutamine stress echocardiogram to rule out severe aortic valve stenosis (LF-LG) as outpatient. In the meantime, continue rate control with metoprolol. Continue DOAC therapy with low-dose Eliquis ([id number] Score 5 points, HAS-BLED Score 1 point). Monitor electrolytes, renal function, and liver enzymes closely. Strict I&Os. Continue Nephrology & GI recommendations. Abx therapy per primary care team. The patient is cardiac stable. There is no further cardiac work-up indicated at this time. Kindly call if in need of further follow-up. Thank you for allowing us to participate in this patient's care. This medical document was created using an electronic medical record system with voice recognition software and computerized dictation system. Although this document has been carefully reviewed, there might still be some phonetic and typographical errors. Occasional wrong-word or ``sound-alike substitutions may have occurred due to the inherent limitations of voice recognition software. These areas are purely typographical due to imperfections of the software programs and do not reflect any compromise in the patient's medical care. Please read the chart carefully and recognize, using context, where these substitutions have occurred. Plan discussed with: Patient, Spouse, Other Dietary Evaluation Review Comments: 1.Encourage PO intake to meet her needs at least @75% 2.Consider TF Nepro@35ml/hr providing 68g protein 1484kcal, 611ml free water initial rate @20ml/hr, increase by 10ml/6hrs till reaching the goal rate of 35ml/hr. 3. Consider TPN per pharmacy if EN/GI unaccessible. Expected Outcomes/Goals: Prevent catabolism, prevent muscle waisitng and weight loss. Date of Service: May 25, 2025 Billing Provider: OLGA GILL Cardiology Common Codes: [id number] HOSP CARE(High OLGA GILL May 25, 2025 10:04
--- NOTE | 2025-05-25 11:14 | DVHPN2 ---
Progress Note Date Seen: May 25, 2025 Medical Necessity Reason Pt with a Central, PICC or Fol: Yes The following are medically ne: [place] Catheter Subjective Changes from previous H/P or p: No Changes Objective vital signs Vital Sign Date Time Temp Pulse Resp B/P (MAP) Pulse Ox O2 Delivery O2 Flow Rate FiO2 05/25/25 08:53 97.9 88 16 105/69 (81) 96 97.9 05/25/25 06:27 Nasal Cannula* 2 28 Total Intake and Output 05/24/25 05/24/25 05/25/25 14:59 22:59 06:59 Intake Total 500 ml 0 ml Output Total 650 ml Balance -150 ml 0 ml medications Current Medications Medications Dose Ordered Sig/Royce Route Start Time Stop Time Status Last Admin Dose Admin Guaifenesin/ Dextromethorphan 10 ml Q4HP PRN PO 05/17/25 04:30 05/17/25 17:12 10 ML Ondansetron HCl 4 mg Q4HP PRN IV 05/17/25 04:30 05/24/25 02:39 4 MG Acetaminophen 650 mg Q6HP PRN PO 05/17/25 04:30 Nitroglycerin 0.4 mg Q5MINP PRN SL 05/17/25 04:30 Morphine Sulfate 2 mg Q30M PRN IV 05/17/25 04:30 Enoxaparin Sodium 70 mg Q12HR SC 05/17/25 22:00 UNV Diagnostic Test (Pha) 1 strip ACHS 05/17/25 11:30 05/25/25 06:09 1 STRIP Insulin Human Regular HS SC 05/17/25 22:00 05/20/25 21:37 3 UNITS Insulin Human Regular AC SC 05/17/25 11:30 05/24/25 17:29 2 UNITS Dextrose 50 ml UD PRN IV 05/17/25 10:30 Levalbuterol HCl 1.25 mg Q6HR NEB 05/17/25 12:00 05/25/25 06:27 1.25 MG Ipratropium [place] 0.5 mg Q6HR NEB 05/18/25 12:00 05/25/25 06:27 0.5 MG Pantoprazole Sodium 40 mg DAILY IV 05/19/25 10:00 UNV Pantoprazole Sodium 40 mg DAILY IV 05/18/25 11:15 05/24/25 10:34 40 MG Polyethylene Glycol 17 gm DAILYPRN PRN PO 05/19/25 15:30 Bumetanide 1 mg DAILY IV 05/20/25 10:45 05/24/25 10:31 1 MG Patient Own Medication 1 BID EACHEYE 05/20/25 22:00 05/24/25 22:24 1 Patient Own Medication 1 BID EACHEYE 05/20/25 22:00 05/24/25 22:24 1 Levofloxacin/ Dextrose 100 ml @ 100 mls/hr Q2D IV 05/25/25 10:00 Apixaban 2.5 mg BID PO 05/24/25 22:00 05/24/25 22:16 2.5 MG Metoprolol Tartrate 25 mg BID PO 05/24/25 22:00 Examination: GENERAL:Abnormal, LUNGS:Abnormal, CVS:Normal laboratory and microbiology Laboratory Tests 05/25/25 05:17 Test 05/25/25 05:17 Range/Units Serum Glucose 74 74-106 mg/dL Microbiology Date/Time Source Procedure Growth Status 05/17/25 23:45 Nose MRSA Screen - Final Complete 05/17/25 19:06 Sputum Gram Stain - Final Complete 05/17/25 19:06 Respiratory Culture - Final Shewanella putrefaciens Complete 05/17/25 11:32 Urine - [place] Urine Culture - Final Klebsiella ozaenae Complete 05/17/25 10:18 Blood Blood Culture - Final NO GROWTH AFTER 5 DAYS OF INCUBATION. Complete Problem List/Assessment/Plan Problem List/Assessment/Plan This is a 84-year-old female with past medical history of CHF, AFib, pulmonary emboli, hypertension, dyslipidemia, hypothyroidism and COPD (on CPAP during night) brought to the hospital due to generalized weakness, lethargy, decreased oral intake and shortness of breath. KIARA on CKD hemodynamic etiology in the setting of AFib with RVR/severe sepsis Secondary hyperparathyroidism Hyperphosphatemia Sepsis, due to pneumonia acute on chronic systolic heart failure AFib with RVR Non ST-elevation AR Hyperkalemia, resolved Lactic acidosis Liver cirrhosis gradual improvement agree with diurtics fluid restriction low salt diet cardiology Plan discussed with: Patient Dietary Evaluation Review Comments: 1.Encourage PO intake to meet her needs at least @75% 2.Consider TF Nepro@35ml/hr providing 68g protein 1484kcal, 611ml free water initial rate @20ml/hr, increase by 10ml/6hrs till reaching the goal rate of 35ml/hr. 3. Consider TPN per pharmacy if EN/GI unaccessible. Expected Outcomes/Goals: Prevent catabolism, prevent muscle waisitng and weight loss. ALEXANDREA PRINGLE MD May 25, 2025 11:14
--- NOTE | 2025-05-25 12:28 | DVHPN2 ---
Subjective Patient denies any symptoms at this time. Reviewed: Care Plan, H&P, Labs, Medications, Previous Orders Changes from previous H/P or p: No Changes General: Per HPI Objective Vitals Vital Signs Date Time Temp Pulse Resp B/P (MAP) Pulse Ox O2 Delivery O2 Flow Rate FiO2 05/25/25 11:30 100 Nasal Cannula* 2 28 05/25/25 11:30 79 16 05/25/25 11:06 132/80 05/25/25 08:53 97.9 97.9 Intake/Output Intake and Output 05/25/25 07:00 Intake Total 500 ml Output Total 650 ml Balance -150 ml Intake Oral 500 ml Output Urine Total 650 ml # Bowel Movements 1 General Appearance: Alert, Oriented X3, Cooperative, mild distress HEENT: Atraumatic, PERRLA Lungs: Clear to auscultation, Normal air movement Cardiovascular: Normal S1, Normal S2, Other (AFib with RVR) Abdomen: Normal bowel sounds, Soft, No tenderness, No hepatospenomegaly Genitourinary: No Apparent Abnormalities Musculoskeletal: Normal sensory function Extremities: No clubbing, No cyanosis, No edema, Normal pulses, No tenderness/swelling Neuro: Normal speech Skin: Dry, Intact Psych/Mental Status: Mental status NL, Mood NL Medications Current Medications Medications Dose Ordered Sig/Royce Route Start Time Stop Time Status Last Admin Dose Admin Guaifenesin/ Dextromethorphan 10 ml Q4HP PRN PO 05/17/25 04:30 05/17/25 17:12 10 ML Ondansetron HCl 4 mg Q4HP PRN IV 05/17/25 04:30 05/24/25 02:39 4 MG Acetaminophen 650 mg Q6HP PRN PO 05/17/25 04:30 Nitroglycerin 0.4 mg Q5MINP PRN SL 05/17/25 04:30 Morphine Sulfate 2 mg Q30M PRN IV 05/17/25 04:30 Enoxaparin Sodium 70 mg Q12HR SC 05/17/25 22:00 UNV Diagnostic Test (Pha) 1 strip ACHS 05/17/25 11:30 05/25/25 11:28 1 STRIP Insulin Human Regular HS SC 05/17/25 22:00 05/20/25 21:37 3 UNITS Insulin Human Regular AC SC 05/17/25 11:30 05/24/25 17:29 2 UNITS Dextrose 50 ml UD PRN IV 05/17/25 10:30 Levalbuterol HCl 1.25 mg Q6HR NEB 05/17/25 12:00 05/25/25 11:30 1.25 MG Ipratropium [place] 0.5 mg Q6HR NEB 05/18/25 12:00 05/25/25 11:30 0.5 MG Pantoprazole Sodium 40 mg DAILY IV 05/19/25 10:00 UNV Pantoprazole Sodium 40 mg DAILY IV 05/18/25 11:15 05/25/25 11:05 40 MG Polyethylene Glycol 17 gm DAILYPRN PRN PO 05/19/25 15:30 Bumetanide 1 mg DAILY IV 05/20/25 10:45 05/25/25 11:06 1 MG Patient Own Medication 1 BID EACHEYE 05/20/25 22:00 05/25/25 10:00 1 Patient Own Medication 1 BID EACHEYE 05/20/25 22:00 05/25/25 10:00 1 Levofloxacin/ Dextrose 100 ml @ 100 mls/hr Q2D IV 05/25/25 10:00 05/25/25 12:02 100 MLS/HR Apixaban 2.5 mg BID PO 05/24/25 22:00 05/25/25 11:04 2.5 MG Metoprolol Tartrate 25 mg BID PO 05/24/25 22:00 05/25/25 11:05 25 MG Laboratory Results Laboratory Tests 05/25/25 05:17 Chemistry Test 05/25/25 05:17 Albumin 2.6 g/dL (3.2-4.8) L Calcium Level 8.6 mg/dL (8.7-10.4) L Total Protein 4.9 g/dL (5.7-8.2) L Coagulation Test 05/24/25 15:36 Prothrombin Time 12.5 sec (9.3-11.8) H Prothrombin Time INR 1.20 (0.9-1.15) H LFT Test 05/25/25 05:17 Alanine Aminotransferase (ALT) 439 U/L (7-40) H Alkaline Phosphatase 123 U/L (46-116) H Aspartate Amino Transferase (AST) 61 U/L (13-40) H Total Bilirubin 1.1 mg/dL (0.2-1.0) H Urinalysis Test 05/17/25 11:32 05/19/25 06:48 Urine Color Yellow (Yellow) Urine Clarity Turbid (Clear) H Urine pH 5.5 (5.0-9.0) Urine Specific [place] 1.016 (1.001-1.035) Urine Protein 1+ (Negative) H Urine Ketones 1+ (Negative) H Urine Blood Negative /uL (Negative) Urine Nitrite Negative (Negative) Urine Bilirubin Negative (Negative) Urine Urobilinogen Normal mg/dL (Negative) Urine Leukocyte Esterase Negative /uL (Negative) Urine RBC 6 /hpf (0 - 4) Urine Microscopic WBC 4 /HPF (0-5) Urine Squamous Epithelial Cells Few /hpf (<5) Urine Bacteria Few /hpf (None Seen) H Urine Hyaline Casts Mod /lpf (0 - 2) Urine Mucus Few (None Seen) Urine Glucose Normal mg/dL (Normal) Urine Creatinine 82.26 mg/dL (30.0-125.0) Urine Protein/Creatinine Ratio 1.90 Urine Sodium 24 mmol/L (40-220) L Urine Total Protein 155.9 mg/dL (1-14) H Microbiology Microbiology Date/Time Source Procedure Growth Status 05/17/25 23:45 Nose MRSA Screen - Final Complete 05/17/25 19:06 Sputum Gram Stain - Final Complete 05/17/25 19:06 Respiratory Culture - Final Shewanella putrefaciens Complete 05/17/25 11:32 Urine - [place] Urine Culture - Final Klebsiella ozaenae Complete 05/17/25 10:18 Blood Blood Culture - Final NO GROWTH AFTER 5 DAYS OF INCUBATION. Complete Labs and/or images reviewed: Labs reviewed by me, Image(s) reviewed by me Assessment/Plan Assessment/Plan Impression: -sepsis -multifocal pneumonia, probable Gram-positive/Gram-negative etiology -AFib with RVR -acute on chronic systolic heart failure -acute hypoxic respiratory failure -NSTEMI, probably type secondary to sepsis -history of pulmonary embolism -acute kidney injury, vasomotor nephropathy - dyslipidemia -COPD -diabetes mellitus Plan: Events: Repeat chest x-ray with improved opacities. Patient is still with poor appetite. Ambulating approximately 15 ft with physical therapy. -continue Levaquin -cardiology consultation: Recommendations reviewed -nephrology consultation : Recommendations reviewed -continue rate control with metoprolol tartrate -continue Eliquis -bronchodilators prn -physical therapy -repeat labs in a.m. Total time spent with patient discussing and formulating plan of care: 35 minutes. This medical document was created using an electronic medical record system with [employer] dictation system. Although this document has been carefully reviewed, there may still be some phonetic and typographical errors. These areas are purely typographical due to imperfections of the software programs, and do not reflect any compromise in the patient's medical care. Plan discussed with: Patient, Other (RN) My Orders Orders - BRIAN AGUIRRE NP Procedure Category Date Status Time Renal DIET 05/24/25 Transmitted Standard(2gna,3gk,Lopho) Lunch Date of Service: May 25, 2025 Billing Provider: BRIAN AGUIRRE NP Common Visit Codes: [id number] INP/OBS CARE(HIGH) BRIAN AGUIRRE NP May 25, 2025 12:28
--- NOTE | 2025-05-25 13:18 | ECG ---
[facility] Test Date: 2025-05-17 Test Time: 04:26:06 Pat Name: KELSEY LAI Department: [facility] ED Patient ID: [id number] Room: 0218T B Gender: F Disease Case Manager: JANAK : 1940 Requested By: SANDRA DUARTE Order Number: [id number] Reading MD: Keagan Knight Measurements Intervals [place] Rate: 130 P: 0 [place]: 0 QRS: 0 QRSD: 93 T: 90 QT: 326 QTc: 480 Interpretive Statements Atrial fibrillation Anterior infarct, old Nonspecific T abnormalities, lateral leads Electronically Signed On 05-25-2025 17:35:11 PST by Keagan Knight Please click the below link to view image of tracing.
--- NOTE | 2025-05-25 15:29 | DVHPN2 ---
Progress Note - Dictate Date Seen: May 25, 2025 Medical Necessity Reason Pt with a Central, PICC or Fol: Yes The following are medically ne: Nesbitt Catheter Subjective No new complaints Liver enzymes trending down again ; renal function improved Patient is tolerating diet She is undergoing physical therapy She is still weak and only able to ambulate about 15 ft vital signs Vital Sign Date Time Temp Pulse Resp B/P (MAP) Pulse Ox O2 Delivery O2 Flow Rate FiO2 05/25/25 13:00 97.6 78 18 130/82 (98) 98 97.6 05/25/25 11:30 Nasal Cannula* 2 28 Total Intake and Output 05/24/25 05/24/25 05/25/25 15:00 23:00 07:00 Intake Total 500 ml 0 ml Output Total 650 ml Balance -150 ml 0 ml medications Current Medications Medications Dose Ordered Sig/Royce Route Start Time Stop Time Status Last Admin Dose Admin Guaifenesin/ Dextromethorphan 10 ml Q4HP PRN PO 05/17/25 04:30 05/17/25 17:12 10 ML Ondansetron HCl 4 mg Q4HP PRN IV 05/17/25 04:30 05/24/25 02:39 4 MG Acetaminophen 650 mg Q6HP PRN PO 05/17/25 04:30 Nitroglycerin 0.4 mg Q5MINP PRN SL 05/17/25 04:30 Morphine Sulfate 2 mg Q30M PRN IV 05/17/25 04:30 Enoxaparin Sodium 70 mg Q12HR SC 05/17/25 22:00 UNV Diagnostic Test (Pha) 1 strip ACHS 05/17/25 11:30 05/25/25 11:28 1 STRIP Insulin Human Regular HS SC 05/17/25 22:00 05/20/25 21:37 3 UNITS Insulin Human Regular AC SC 05/17/25 11:30 05/24/25 17:29 2 UNITS Dextrose 50 ml UD PRN IV 05/17/25 10:30 Levalbuterol HCl 1.25 mg Q6HR NEB 05/17/25 12:00 05/25/25 11:30 1.25 MG Ipratropium [place] 0.5 mg Q6HR NEB 05/18/25 12:00 05/25/25 11:30 0.5 MG Pantoprazole Sodium 40 mg DAILY IV 05/19/25 10:00 UNV Pantoprazole Sodium 40 mg DAILY IV 05/18/25 11:15 05/25/25 11:05 40 MG Polyethylene Glycol 17 gm DAILYPRN PRN PO 05/19/25 15:30 Bumetanide 1 mg DAILY IV 05/20/25 10:45 05/25/25 11:06 1 MG Patient Own Medication 1 BID EACHEYE 05/20/25 22:00 05/25/25 10:00 1 Patient Own Medication 1 BID EACHEYE 05/20/25 22:00 05/25/25 10:00 1 Levofloxacin/ Dextrose 100 ml @ 100 mls/hr Q2D IV 05/25/25 10:00 05/25/25 12:02 100 MLS/HR Apixaban 2.5 mg BID PO 05/24/25 22:00 05/25/25 11:04 2.5 MG Metoprolol Tartrate 25 mg BID PO 05/24/25 22:00 05/25/25 11:05 25 MG objective Gen - no pallor, no scleral icterus Skin - Patients skin is warm and dry. HEENT - normocephalic, atraumatic, dry mucous membranes. Neck - supple, no lymphadenopathy Pulmonary - B/L decreased breath sounds in the bases with the crackles cardiovascular - regular S1,S2 heard GI - soft nontender abdomen. Bowel sounds normoactive. Neurological - Patient is alert and oriented x3 and is following commands laboratory and microbiology Laboratory Tests 05/25/25 05:17 Test 05/25/25 05:17 Range/Units Serum Glucose 74 74-106 mg/dL Problems(with codes): (1) Shock liver (2) Transaminitis (3) Afib (4) NSTEMI (non-ST elevated myocardial infarction) (5) Cirrhosis of liver Prognosis Plan Continue to monitor labs; hepatitis panel is negative KRUPA is pending and serum ferritin is normal MELD score is 19 points which is likely to improve with improvement in renal insufficiency Ultrasound shows underlying evidence of cirrhosis, patient is well compensated Dietary Evaluation Review Comments: 1.Encourage PO intake to meet her needs at least @75% 2.Consider TF Nepro@35ml/hr providing 68g protein 1484kcal, 611ml free water initial rate @20ml/hr, increase by 10ml/6hrs till reaching the goal rate of 35ml/hr. 3. Consider TPN per pharmacy if EN/GI unaccessible. Expected Outcomes/Goals: Prevent catabolism, prevent muscle waisitng and weight loss. Plan discussed with: Patient PARIS VAUGHN MD May 25, 2025 15:29
[2025-05-26] VITALS (19 sets, daily range): BP systolic 110–147; BP diastolic 55–83; PULSE 26–80; RESP 16–18; TEMP 97.8–98.4; O2SAT 90–100
[2025-05-26 06:07] LABS: Hematocrit 41.2 % (36.0-46.0); Hemoglobin 14.0 g/dL (12.2-16.2); Mean Corpuscular Hemoglobin 27.1 pg (28.0-32.0); Mean Corpuscular Volume 80.1 fL (80.0-100.0); Nucleated Red Blood Cells % 0.3 %
[2025-05-26 06:14] LABS: Chloride 101 mmol/L (98-107); Sodium 141 mmol/L (136-145)
[2025-05-26 06:15] LABS: Anion Gap 11 (5-15); Calcium 8.9 mg/dL (8.7-10.4); Carbon Dioxide 29 mmol/L (20-31)
[2025-05-26 06:20] LABS: BUN/Creatinine Ratio 20.7 (10.0-20.0); Glucose 82 mg/dL (74-106)
[2025-05-26 06:22] LABS: Blood Urea Nitrogen 50 mg/dL (9-23); Potassium 3.3 mmol/L (3.5-5.1)
[2025-05-26] MEDS: POTASSIUM EFFERVESENT TAB 25 MEQ PO ONE (08:30)
--- NOTE | 2025-05-26 10:32 | DVHPN2 ---
Subjective Patient denies any symptoms at this time. Reviewed: Care Plan, H&P, Labs, Medications, Previous Orders Changes from previous H/P or p: No Changes General: Per HPI Objective Vitals Vital Signs Date Time Temp Pulse Resp B/P (MAP) Pulse Ox O2 Delivery O2 Flow Rate FiO2 05/26/25 09:00 97.8 72 16 132/64 (86) 100 97.8 05/25/25 20:00 Nasal Cannula* 2 28 Intake/Output Intake and Output 05/26/25 07:00 Intake Total 340 ml Output Total 700 ml Balance -360 ml Intake Oral 240 ml IV Total 100 ml Output Urine Total 700 ml # Bowel Movements 4 General Appearance: Alert, Oriented X3, Cooperative, mild distress HEENT: Atraumatic, PERRLA Lungs: Clear to auscultation, Normal air movement Cardiovascular: Normal S1, Normal S2, Other (AFib with RVR) Abdomen: Normal bowel sounds, Soft, No tenderness, No hepatospenomegaly Genitourinary: No Apparent Abnormalities Musculoskeletal: Normal sensory function Extremities: No clubbing, No cyanosis, No edema, Normal pulses, No tenderness/swelling Neuro: Normal speech Skin: Dry, Intact Psych/Mental Status: Mental status NL, Mood NL Medications Current Medications Medications Dose Ordered Sig/Royce Route Start Time Stop Time Status Last Admin Dose Admin Guaifenesin/ Dextromethorphan 10 ml Q4HP PRN PO 05/17/25 04:30 05/17/25 17:12 10 ML Ondansetron HCl 4 mg Q4HP PRN IV 05/17/25 04:30 05/24/25 02:39 4 MG Acetaminophen 650 mg Q6HP PRN PO 05/17/25 04:30 Nitroglycerin 0.4 mg Q5MINP PRN SL 05/17/25 04:30 Morphine Sulfate 2 mg Q30M PRN IV 05/17/25 04:30 Enoxaparin Sodium 70 mg Q12HR SC 05/17/25 22:00 UNV Diagnostic Test (Pha) 1 strip ACHS 05/17/25 11:30 05/26/25 07:00 1 STRIP Insulin Human Regular HS SC 05/17/25 22:00 05/25/25 22:06 2 UNITS Insulin Human Regular AC SC 05/17/25 11:30 05/24/25 17:29 2 UNITS Dextrose 50 ml UD PRN IV 05/17/25 10:30 Levalbuterol HCl 1.25 mg Q6HR NEB 05/17/25 12:00 05/26/25 07:58 1.25 MG Ipratropium [place] 0.5 mg Q6HR NEB 05/18/25 12:00 05/26/25 07:57 0.5 MG Pantoprazole Sodium 40 mg DAILY IV 05/19/25 10:00 UNV Pantoprazole Sodium 40 mg DAILY IV 05/18/25 11:15 05/25/25 11:05 40 MG Polyethylene Glycol 17 gm DAILYPRN PRN PO 05/19/25 15:30 Patient Own Medication 1 BID EACHEYE 05/20/25 22:00 05/25/25 21:53 1 Patient Own Medication 1 BID EACHEYE 05/20/25 22:00 05/25/25 21:55 1 Levofloxacin/ Dextrose 100 ml @ 100 mls/hr Q2D IV 05/25/25 10:00 05/25/25 12:02 100 MLS/HR Apixaban 2.5 mg BID PO 05/24/25 22:00 05/25/25 21:40 2.5 MG Metoprolol Tartrate 25 mg BID PO 05/24/25 22:00 05/25/25 21:41 25 MG Bumetanide 0.5 mg DAILY PO 05/27/25 10:00 UNV Laboratory Results Laboratory Tests 05/26/25 05:09 Chemistry Test 05/26/25 05:09 Calcium Level 8.9 mg/dL (8.7-10.4) Urinalysis Test 05/17/25 11:32 05/19/25 06:48 Urine Color Yellow (Yellow) Urine Clarity Turbid (Clear) H Urine pH 5.5 (5.0-9.0) Urine Specific [place] 1.016 (1.001-1.035) Urine Protein 1+ (Negative) H Urine Ketones 1+ (Negative) H Urine Blood Negative /uL (Negative) Urine Nitrite Negative (Negative) Urine Bilirubin Negative (Negative) Urine Urobilinogen Normal mg/dL (Negative) Urine Leukocyte Esterase Negative /uL (Negative) Urine RBC 6 /hpf (0 - 4) Urine Microscopic WBC 4 /HPF (0-5) Urine Squamous Epithelial Cells Few /hpf (<5) Urine Bacteria Few /hpf (None Seen) H Urine Hyaline Casts Mod /lpf (0 - 2) Urine Mucus Few (None Seen) Urine Glucose Normal mg/dL (Normal) Urine Creatinine 82.26 mg/dL (30.0-125.0) Urine Protein/Creatinine Ratio 1.90 Urine Sodium 24 mmol/L (40-220) L Urine Total Protein 155.9 mg/dL (1-14) H Microbiology Microbiology Date/Time Source Procedure Growth Status 05/17/25 23:45 Nose MRSA Screen - Final Complete 05/17/25 19:06 Sputum Gram Stain - Final Complete 05/17/25 19:06 Respiratory Culture - Final Shewanella putrefaciens Complete 05/17/25 11:32 Urine - [place] Urine Culture - Final Klebsiella ozaenae Complete 05/17/25 10:18 Blood Blood Culture - Final NO GROWTH AFTER 5 DAYS OF INCUBATION. Complete Labs and/or images reviewed: Labs reviewed by me, Image(s) reviewed by me Assessment/Plan Assessment/Plan Impression: -sepsis -multifocal pneumonia, probable Gram-positive/Gram-negative etiology -AFib with RVR -acute on chronic systolic heart failure -acute hypoxic respiratory failure -NSTEMI, probably type secondary to sepsis -history of pulmonary embolism -acute kidney injury, vasomotor nephropathy - dyslipidemia -COPD -diabetes mellitus Plan: Events: Weaned off oxygen. Ambulating with physical therapy approximately 30 ft. -DC Nesbitt catheter -change IV Bumex to p.o. -continue Levaquin -cardiology consultation: Recommendations reviewed -nephrology consultation : Recommendations reviewed -continue rate control with metoprolol tartrate -continue Eliquis -bronchodilators prn -physical therapy -repeat labs in a.m. -DC telemetry Total time spent with patient discussing and formulating plan of care: 35 minutes. This medical document was created using an electronic medical record system with [employer] dictation system. Although this document has been carefully reviewed, there may still be some phonetic and typographical errors. These areas are purely typographical due to imperfections of the software programs, and do not reflect any compromise in the patient's medical care. Plan discussed with: Patient, Other (RN) My Orders Orders - BRIAN AGUIRRE NP Procedure Category Date Status Time Discontinue Nesbitt TELLY 05/26/25 Transmitted Catheter 10:28 Transfer Orders XFER 05/26/25 Transmitted 10:28 * Planisher CONS 05/26/25 Transmitted Consult Bumetanide Tablet PHA 05/27/25 Transmitted (Bumex Tablet) 10:00 Date of Service: May 26, 2025 Billing Provider: BRIAN AGUIRRE NP Common Visit Codes: [id number] INP/OBS CARE(HIGH) BRIAN AGUIRRE NP May 26, 2025 10:32
--- NOTE | 2025-05-26 13:34 | DVHPN2 ---
Progress Note Date Seen: May 26, 2025 Medical Necessity Reason Pt with a Central, PICC or Fol: Yes The following are medically ne: Nesbitt Catheter Objective vital signs Vital Sign Date Time Temp Pulse Resp B/P (MAP) Pulse Ox O2 Delivery O2 Flow Rate FiO2 05/26/25 13:00 98.3 66 110/55 (73) 93 98.3 05/26/25 11:57 Nasal Cannula 1.0 05/26/25 11:57 16 05/26/25 11:57 24 Total Intake and Output 05/25/25 05/25/25 05/26/25 14:59 22:59 06:59 Intake Total 100 ml 240 ml Output Total 700 ml Balance 100 ml -460 ml medications Current Medications Medications Dose Ordered Sig/Royce Route Start Time Stop Time Status Last Admin Dose Admin Guaifenesin/ Dextromethorphan 10 ml Q4HP PRN PO 05/17/25 04:30 05/17/25 17:12 10 ML Ondansetron HCl 4 mg Q4HP PRN IV 05/17/25 04:30 05/24/25 02:39 4 MG Acetaminophen 650 mg Q6HP PRN PO 05/17/25 04:30 Nitroglycerin 0.4 mg Q5MINP PRN SL 05/17/25 04:30 Morphine Sulfate 2 mg Q30M PRN IV 05/17/25 04:30 Enoxaparin Sodium 70 mg Q12HR SC 05/17/25 22:00 UNV Diagnostic Test (Pha) 1 strip ACHS 05/17/25 11:30 05/26/25 11:30 1 STRIP Insulin Human Regular HS SC 05/17/25 22:00 05/25/25 22:06 2 UNITS Insulin Human Regular AC SC 05/17/25 11:30 05/26/25 11:30 3 UNITS Dextrose 50 ml UD PRN IV 05/17/25 10:30 Levalbuterol HCl 1.25 mg Q6HR NEB 05/17/25 12:00 05/26/25 11:57 1.25 MG Ipratropium [place] 0.5 mg Q6HR NEB 05/18/25 12:00 05/26/25 11:57 0.5 MG Pantoprazole Sodium 40 mg DAILY IV 05/19/25 10:00 UNV Pantoprazole Sodium 40 mg DAILY IV 05/18/25 11:15 05/26/25 10:32 40 MG Polyethylene Glycol 17 gm DAILYPRN PRN PO 05/19/25 15:30 Patient Own Medication 1 BID EACHEYE 05/20/25 22:00 05/26/25 10:00 1 Patient Own Medication 1 BID EACHEYE 05/20/25 22:00 05/26/25 10:00 1 Levofloxacin/ Dextrose 100 ml @ 100 mls/hr Q2D IV 05/25/25 10:00 05/25/25 12:02 100 MLS/HR Apixaban 2.5 mg BID PO 05/24/25 22:00 05/26/25 10:32 2.5 MG Metoprolol Tartrate 25 mg BID PO 05/24/25 22:00 05/26/25 10:33 25 MG Bumetanide 0.5 mg DAILY PO 05/27/25 10:00 Examination: GENERAL:Abnormal, LUNGS:Abnormal, CVS:Abnormal laboratory and microbiology Laboratory Tests 05/26/25 05:09 Test 05/26/25 05:09 Range/Units Serum Glucose 82 74-106 mg/dL Microbiology Date/Time Source Procedure Growth Status 05/17/25 23:45 Nose MRSA Screen - Final Complete 05/17/25 19:06 Sputum Gram Stain - Final Complete 05/17/25 19:06 Respiratory Culture - Final Shewanella putrefaciens Complete 05/17/25 11:32 Urine - [place] Urine Culture - Final Klebsiella ozaenae Complete 05/17/25 10:18 Blood Blood Culture - Final NO GROWTH AFTER 5 DAYS OF INCUBATION. Complete Problem List/Assessment/Plan Problem List/Assessment/Plan This is a 84-year-old female with past medical history of CHF, AFib, pulmonary emboli, hypertension, dyslipidemia, hypothyroidism and COPD (on CPAP during night) brought to the hospital due to generalized weakness, lethargy, decreased oral intake and shortness of breath. KIARA on CKD hemodynamic etiology in the setting of AFib with RVR/severe sepsis Secondary hyperparathyroidism Hyperphosphatemia Sepsis, due to pneumonia acute on chronic systolic heart failure AFib with RVR Non ST-elevation DC Lactic acidosis Liver cirrhosis gradual improvement potassium replacement agree with diuretics agree with conversion to po fluid restriction low salt diet cardiology Plan discussed with: Patient Dietary Evaluation Review Comments: 1.Encourage PO intake to meet her needs at least @75% 2.Consider TF Nepro@35ml/hr providing 68g protein 1484kcal, 611ml free water initial rate @20ml/hr, increase by 10ml/6hrs till reaching the goal rate of 35ml/hr. 3. Consider TPN per pharmacy if EN/GI unaccessible. Expected Outcomes/Goals: Prevent catabolism, prevent muscle waisitng and weight loss. ALEXANDREA PRINGLE MD May 26, 2025 13:34
--- NOTE | 2025-05-26 17:19 | DVHPN2 ---
Progress Note - Dictate Date Seen: May 26, 2025 Medical Necessity Reason Pt with a Central, PICC or Fol: Yes The following are medically ne: Nesbitt Catheter Subjective No new complaints Liver enzymes trending down again ; renal function improved Patient is tolerating diet She is undergoing physical therapy She is still weak and only able to ambulate about 15 ft vital signs Vital Sign Date Time Temp Pulse Resp B/P (MAP) Pulse Ox O2 Delivery O2 Flow Rate FiO2 05/26/25 13:00 98.3 66 110/55 (73) 93 98.3 05/26/25 12:05 16 05/26/25 11:57 Nasal Cannula 1.0 05/26/25 11:57 24 Total Intake and Output 05/25/25 05/25/25 05/26/25 15:00 23:00 07:00 Intake Total 100 ml 240 ml Output Total 700 ml Balance 100 ml -460 ml medications Current Medications Medications Dose Ordered Sig/Royce Route Start Time Stop Time Status Last Admin Dose Admin Guaifenesin/ Dextromethorphan 10 ml Q4HP PRN PO 05/17/25 04:30 05/17/25 17:12 10 ML Ondansetron HCl 4 mg Q4HP PRN IV 05/17/25 04:30 05/24/25 02:39 4 MG Acetaminophen 650 mg Q6HP PRN PO 05/17/25 04:30 Nitroglycerin 0.4 mg Q5MINP PRN SL 05/17/25 04:30 Morphine Sulfate 2 mg Q30M PRN IV 05/17/25 04:30 Enoxaparin Sodium 70 mg Q12HR SC 05/17/25 22:00 UNV Diagnostic Test (Pha) 1 strip ACHS 05/17/25 11:30 05/26/25 11:30 1 STRIP Insulin Human Regular HS SC 05/17/25 22:00 05/25/25 22:06 2 UNITS Insulin Human Regular AC SC 05/17/25 11:30 05/26/25 11:30 3 UNITS Dextrose 50 ml UD PRN IV 05/17/25 10:30 Levalbuterol HCl 1.25 mg Q6HR NEB 05/17/25 12:00 05/26/25 11:57 1.25 MG Ipratropium [place] 0.5 mg Q6HR NEB 05/18/25 12:00 05/26/25 11:57 0.5 MG Pantoprazole Sodium 40 mg DAILY IV 05/19/25 10:00 UNV Pantoprazole Sodium 40 mg DAILY IV 05/18/25 11:15 05/26/25 10:32 40 MG Polyethylene Glycol 17 gm DAILYPRN PRN PO 05/19/25 15:30 Patient Own Medication 1 BID EACHEYE 05/20/25 22:00 05/26/25 10:00 1 Patient Own Medication 1 BID EACHEYE 05/20/25 22:00 05/26/25 10:00 1 Levofloxacin/ Dextrose 100 ml @ 100 mls/hr Q2D IV 05/25/25 10:00 05/25/25 12:02 100 MLS/HR Apixaban 2.5 mg BID PO 05/24/25 22:00 05/26/25 10:32 2.5 MG Metoprolol Tartrate 25 mg BID PO 05/24/25 22:00 05/26/25 10:33 25 MG Bumetanide 0.5 mg DAILY PO 05/27/25 10:00 objective Gen - no pallor, no scleral icterus Skin - Patients skin is warm and dry. HEENT - normocephalic, atraumatic, dry mucous membranes. Neck - supple, no lymphadenopathy Pulmonary - B/L decreased breath sounds in the bases with the crackles cardiovascular - regular S1,S2 heard GI - soft nontender abdomen. Bowel sounds normoactive. Neurological - Patient is alert and oriented x3 and is following commands laboratory and microbiology Laboratory Tests 05/26/25 05:09 Test 05/26/25 05:09 Range/Units Serum Glucose 82 74-106 mg/dL Problems(with codes): (1) Cirrhosis of liver (2) Shock liver (3) Transaminitis (4) Afib (5) NSTEMI (non-ST elevated myocardial infarction) Prognosis Plan Continue to monitor labs; hepatitis panel is negative KRUPA is negative and serum ferritin is normal MELD score is 17 points which is likely to improve with improvement in renal insufficiency Ultrasound shows underlying evidence of cirrhosis, patient is well compensated Discharge planning is in progress Outpatient follow up with GI Services for ongoing monitoring of liver enzymes and elective panendoscopy Dietary Evaluation Review Comments: 1.Encourage PO intake to meet her needs at least @75% 2.Consider TF Nepro@35ml/hr providing 68g protein 1484kcal, 611ml free water initial rate @20ml/hr, increase by 10ml/6hrs till reaching the goal rate of 35ml/hr. 3. Consider TPN per pharmacy if EN/GI unaccessible. Expected Outcomes/Goals: Prevent catabolism, prevent muscle waisitng and weight loss. Plan discussed with: Patient PARIS VAUGHN MD May 26, 2025 17:19
[2025-05-27] VITALS (7 sets, daily range): BP systolic 129–152; BP diastolic 62–86; PULSE 62–81; RESP 16–18; TEMP 97.8–98.1; O2SAT 94–100
[2025-05-27 06:49] LABS: Alkaline Phosphatase 110 U/L (46-116); Anion Gap 12 (5-15); BUN/Creatinine Ratio 27.1 (10.0-20.0); Calcium 8.9 mg/dL (8.7-10.4); Carbon Dioxide 29 mmol/L (20-31); Chloride 101 mmol/L (98-107); Glucose 80 mg/dL (74-106); Sodium 142 mmol/L (136-145)
[2025-05-27 06:53] LABS: Alanine Aminotransferase 286 U/L (7-40); Albumin 2.7 g/dL (3.2-4.8); Bilirubin, Total 1.3 mg/dL (0.2-1.0); Blood Urea Nitrogen 49 mg/dL (9-23); Potassium 3.5 mmol/L (3.5-5.1); Total Protein 5.0 g/dL (5.7-8.2)
[2025-05-27] MEDS ORDERED: LEVO500T91 PO (09:56)
[2025-05-27] MEDS: BUMETANIDE 1 MG TAB PO SCH (10:15)
--- NOTE | 2025-05-27 11:35 | DVHDS2 ---
Discharge Summary Date of Admission May 17, 2025 at 04:24 Date of Discharge: May 27, 2025 Admitting Diagnosis N STEMI, AFib with RVR Labs/Diagnostic Data: Laboratory Results Test 05/27/25 06:35 05/27/25 04:50 05/26/25 05:09 05/25/25 05:17 POC Glucose 93 mg/dl (70-106) Sodium Level 142 mmol/L (136-145) Potassium Level 3.5 mmol/L (3.5-5.1) Chloride Level 101 mmol/L (98-107) Carbon Dioxide Level 29 mmol/L (20-31) Anion Gap 12 (5-15) Blood Urea Nitrogen 49 mg/dL (9-23) Creatinine 1.81 mg/dL (0.550-1.02) Glomerular Filtration Rate Calc 27 mL/min (>90) BUN/Creatinine Ratio 27.1 (10.0-20.0) Serum Glucose 80 mg/dL (74-106) Calcium Level 8.9 mg/dL (8.7-10.4) Total Bilirubin 1.3 mg/dL (0.2-1.0) Aspartate Amino Transferase (AST) 52 U/L (13-40) Alanine Aminotransferase (ALT) 286 U/L (7-40) Alkaline Phosphatase 110 U/L (46-116) Total Protein 5.0 g/dL (5.7-8.2) Albumin 2.7 g/dL (3.2-4.8) White Blood Count 13.3 10^3/uL (4.4-10.8) Red Blood Count 5.14 10^6/uL (4.0-5.20) Hemoglobin 14.0 g/dL (12.2-16.2) Hematocrit 41.2 % (36.0-46.0) Mean Corpuscular Volume 80.1 fL (80.0-100.0) Mean Corpuscular Hemoglobin 27.1 pg (28.0-32.0) Mean Corpuscular Hemoglobin Concent 33.9 g/dL (32.0-36.0) Red Cell Distribution Width 15.0 % (11.8-14.3) Platelet Count 148 10^3/uL (140-450) Mean Platelet Volume 7.8 fL (6.9-10.8) Neutrophils (%) (Auto) 74.6 % (37.0-80.0) Lymphocytes (%) (Auto) 16.0 % (10.0-50.0) Monocytes (%) (Auto) 5.4 % (0.0-12.0) Eosinophils (%) (Auto) 3.5 % (0.0-7.0) Basophils (%) (Auto) 0.5 % (0.0-2.0) Neutrophils # (Auto) 10.0 10 ^3/uL (1.6-8.6) Lymphocytes # (Auto) 2.1 10 ^3/uL (0.4-5.4) Monocytes # (Auto) 0.7 10 ^3/uL (0-1.3) Eosinophils # (Auto) 0.5 10 ^3/uL (0-0.8) Basophils # (Auto) 0.1 10 ^3/uL (0-0.2) Nucleated Red Blood Cells 0.3 % Ferritin 204.3 ng/mL (10-291) Anti-Nuclear Antibody Screen Negative (Negative) Test 05/24/25 15:36 05/24/25 11:24 05/23/25 05:04 05/21/25 03:15 Prothrombin Time 12.5 sec (9.3-11.8) Prothrombin Time INR 1.20 (0.9-1.15) Phosphorus Level 4.4 mg/dL (2.4-5.1) Direct Bilirubin 0.5 mg/dL (<0.3) Magnesium Level 2.0 mg/dL (1.6-2.6) Lactic Acid Level 1.8 mmol/L (0.4-2.0) Test 05/20/25 10:46 05/19/25 06:48 05/19/25 05:18 05/19/25 05:13 Carcinoembryonic Antigen 2.67 ng/mL (<=5.0) Urine Creatinine 82.26 mg/dL (30.0-125.0) Urine Protein/Creatinine Ratio 1.90 Urine Sodium 24 mmol/L (40-220) Urine Total Protein 155.9 mg/dL (1-14) Hepatitis A IgM Antibody Negative Hepatitis B Surface Antigen Negative (Negative) Hepatitis B Core IgM Antibody Negative (Negative) Hepatitis C Antibody Negative (Negative) Lipase 38 U/L (12-53) Vitamin D 25-Hydroxy 42.6 ng/mL (30.0-100) Test 05/18/25 13:07 05/18/25 09:42 05/18/25 05:03 05/17/25 11:48 Troponin I High Sensitivity 289 ng/L (</=34) Blood Gas Specimen Type Arterial Blood Gas Sample Site Left radial Blood Gas Patient Temperature 37.0 Arterial Blood Date Drawn [id number] Arterial Blood pH 7.360 (7.350-7.450) Arterial Blood Partial Pressure CO2 25.1 mmHg (32.0-45.0) Arterial Blood Partial Pressure O2 115.0 mmHg (83.0-108.0) Arterial Blood HCO3 13.9 mmol/L (21.0-28.0) Arterial Blood Oxygen Saturation 97.8 % (94.0-98.0) Arterial Blood Base Excess -9.7 mmol/L (-2.0-3.0) Arterial Blood Oxyhemoglobin 96.8 % (94.0-98.0) Arterial Blood Carboxyhemoglobin 0.6 % (0.5-1.5) Arterial Blood Methemoglobin 0.4 % (0.0-1.5) Demond Test Yes Blood Gas Total Hemoglobin 13.50 g/dL (12.0-16.0) Blood Gas Liter Flow 3.00 Blood Gas Modality Nasal cannula FiO2 % 32.0 Uric Acid 11.4 mg/dL (3.1-7.8) B-Type Natriuretic Peptide 910.00 pg/mL (0-100) Parathyroid Hormone (Intact) 870.1 pg/mL (18.4-80.1) Hemoglobin A1c 6.0 % A1C (<5.7) Triglycerides Level 132 mg/dL (< 150) Cholesterol Level 97 mg/dL (< 200) LDL Cholesterol 33 mg/dL (< 100) HDL Cholesterol 40 mg/dL (40-59) Free Thyroxine (T4) Calculated 1.40 ng/dL (0.89-1.76) Total Triiodothyronine (TT3) 0.42 ng/mL (0.60-1.81) Test 05/17/25 11:32 05/17/25 11:09 05/17/25 03:58 05/17/25 00:55 Urine Color Yellow (Yellow) Urine Clarity Turbid (Clear) Urine pH 5.5 (5.0-9.0) Urine Specific Barton 1.016 (1.001-1.035) Urine Protein 1+ (Negative) Urine Ketones 1+ (Negative) Urine Blood Negative /uL (Negative) Urine Nitrite Negative (Negative) Urine Bilirubin Negative (Negative) Urine Urobilinogen Normal mg/dL (Negative) Urine Leukocyte Esterase Negative /uL (Negative) Urine RBC 6 /hpf (0 - 4) Urine Microscopic WBC 4 /HPF (0-5) Urine Squamous Epithelial Cells Few /hpf (<5) Urine Bacteria Few /hpf (None Seen) Urine Hyaline Casts Mod /lpf (0 - 2) Urine Mucus Few (None Seen) Urine Glucose Normal mg/dL (Normal) Influenza Type A Antigen Negative (Negative) Influenza Type B Antigen Negative (Negative) SARS-CoV-2 Antigen (Rapid) Negative (NEGATIVE) Thyroid Stimulating Hormone (TSH) 0.05 uIU/mL (0.55-4.78) Random Vancomycin Level 14.6 ug/mL (5-10) Activated Partial Thromboplast Time 41.6 SEC (24.5-34.5) D-Dimer, Quantitative 3.14 mg/L FEU (0.0-0.49) Other Laboratory Tests 05/27/25 04:50 05/26/25 05:09 Brief Hx & Hospital Course: History of Present Illness 84-year-old female transferred from [facility] for higher level of care. Patient presented to outside facility with complaints of generalized weakness. She reports also left-sided chest pain that has been ongoing for the past day with radiation to her back. Patient was noted to be in AFib with RVR and was started on amiodarone drip and transferred for higher level of care and cardiology evaluation. Course of hospitalization: Patient was found to have bilateral pneumonia upon arrival with the hospital with acute hypoxic respiratory failure. Patient was placed on empiric antibiotic therapy. While in the hospital, patient had worsening renal function, with nephrology consultation placed. Patient's renal function has improved, trending back to within normal limits. AFib with RVR was initially treated with digoxin, with patient's heart rate improving, rate control was switched to metoprolol tartrate. Patient has been weaned off of oxygen. Chest x-ray has marked improvement of bilateral opacities. Cardiology consultation was placed with patient being diagnosed with demand ischemia secondary to sepsis. Patient is ambulating with walker at home. She is now stable to be discharged home with home health services for physical therapy and medication assistance. Both patient and spouse are agreeable with discharge plan. Patient will be continued on antibiotic therapy with Levaquin 250 mg p.o. daily for additional seven days. She will continue her previous home medications including Eliquis 2.5 mg p.o. b.i.d.. All questions answered. Physical examination General: Alert and Oriented x3. No acute distress. Well-nourished. Eyes: EOMI. Anicteric. HENT: Moist mucous membranes. Lungs: Clear to auscultation bilaterally. No accessory muscle use. Cardiovascular: Regular rate and rhythm. No murmur. No JVD. Abdomen: Soft, non-tender and non-distended. No palpable masses. Extremities: No edema. Non-tender. Skin: No rashes or lesions. Warm. Neurologic: No focal neurological deficits. CN II-XII grossly intact, but not individually tested. Psychiatric: Cooperative. Appropriate mood and affect. Total time spent with patient discussing and formulating plan of care: 35 minutes. This medical document was created using an electronic medical record system with [employer] dictation system. Although this document has been carefully reviewed, there may still be some phonetic and typographical errors. These areas are purely typographical due to imperfections of the software programs, and do not reflect any compromise in the patient's medical care. Consults/Reason for consult Cardiology: NSTEMI, acute on chronic systolic heart failure Nephrology: Acute kidney injury Condition at Discharge: Guarded Final Diagnosis/Problems List -sepsis -multifocal pneumonia, probable Gram-positive/Gram-negative etiology -AFib with RVR -acute on chronic systolic heart failure -acute hypoxic respiratory failure -NSTEMI, probably type secondary to sepsis -history of pulmonary embolism -acute kidney injury, vasomotor nephropathy - dyslipidemia -COPD -diabetes mellitus Discharge Disposition: Home with Health Services Discharge Instruct/Medications Diet: Consistent carbohydrate, Cardiac 2g Na,low cholest Activity: No Restrictions, As Tolerated Follow Up/Referral: DC clinic in 1 week Medications: Levaquin 250mg po daily x 7 days Continue all home medications Scheduled Apixaban Base (Eliquis), 5 MG PO BID, (Reported) Budesonide-Formoterol Fumarate (Budesonide/Formoterol Fum 160-4.5 Mcg/Act), 1 AER IN BID, (Reported) Dulaglutide (Trulicity), 0.75 MG SC DAILY, (Reported) Esomeprazole Magnesium Trihydr (Nexium), 40 MG PO DAILY, (Reported) Ezetimibe (Zetia), 10 MG PO DAILY, (Reported) Furosemide (Lasix), 40 MG PO DAILY, (Reported) Levofloxacin Hemihydrate (Levaquin 500 Mg), 0.5 TAB PO DAILY Levothyroxine Sodium (Synthroid), 1 TAB PO DAILY, (Reported) Metoprolol Succinate (Metoprolol Succinate Er), 25 MG PO DAILY, (Reported) Montelukast Sodium (Montelukast Sodium), 10 MG PO DAILY, (Reported) Olopatadine HCl (Olopatadine Hydrochloride), 0.1 % OP BID, (Reported) Telmisartan (Micardis), 40 MG PO DAILY, (Reported) Scheduled PRN Albuterol Sulfate (Ventolin Mdi), 90 MCG IN Q6HP PRN for SHORTNESS OF BREATH, (Reported) 36 Discharge Statement: "Patient was advised to return to the ER or call 911 if any headaches, dizziness, shortness of breath, chest pain, abdominal pain, bleeding, fevers, or worsening of medical condition. Patient was counseled about treatment plan, medications, possible side effects, patientverbalized understanding. All questions were answered to the best of my ability. This discharge took greater then 30 minutes in planning, reviewing documentation, counseling the patient, and discussing with other team members." ASSESSMENT ASSESSMENT Assessment Sepsis secondary to pna Date of Service: May 27, 2025 Billing Provider: BRIAN AGUIRRE NP Common Visit Codes: 88317-WIZ/OBS DISCH DAY >30min BRIAN AGUIRRE NP May 27, 2025 11:35
--- NOTE | 2025-05-27 21:27 | DVHPN2 ---
Progress Note - Dictate Date Seen: May 27, 2025 (Late entryTime of visit 10 am) Medical Necessity Reason Pt with a Central, PICC or Fol: Yes The following are medically ne: Nesbitt Catheter Subjective No new complaints Liver enzymes trending down again ; renal function improved Patient is tolerating diet She is undergoing physical therapy She is still weak and only able to ambulate about 15 ft vital signs Vital Sign Date Time Temp Pulse Resp B/P (MAP) Pulse Ox O2 Delivery O2 Flow Rate FiO2 05/27/25 11:31 97.9 81 18 99 05/27/25 11:16 136/72 05/27/25 08:00 Nasal Cannula* 1 24 Total Intake and Output 05/26/25 05/26/25 05/27/25 15:00 23:00 07:00 Intake Total 350 ml 150 ml Output Total 950 ml 475 ml Balance -600 ml -325 ml medications Current Medications Medications Dose Ordered Sig/Royce Route Start Time Stop Time Status Last Admin Dose Admin Enoxaparin Sodium 70 mg Q12HR SC 05/17/25 22:00 UNV Pantoprazole Sodium 40 mg DAILY IV 05/19/25 10:00 UNV objective Gen - no pallor, no scleral icterus Skin - Patients skin is warm and dry. HEENT - normocephalic, atraumatic, dry mucous membranes. Neck - supple, no lymphadenopathy Pulmonary - B/L decreased breath sounds in the bases with the crackles cardiovascular - regular S1,S2 heard GI - soft nontender abdomen. Bowel sounds normoactive. Neurological - Patient is alert and oriented x3 and is following commands laboratory and microbiology Laboratory Tests 05/27/25 04:50 05/26/25 05:09 Test 05/27/25 04:50 Range/Units Serum Glucose 80 74-106 mg/dL Problems(with codes): (1) Sepsis due to pneumonia (2) Cirrhosis of liver (3) Shock liver (4) Transaminitis (5) Afib (6) NSTEMI (non-ST elevated myocardial infarction) Prognosis PLAN Discharge planning in progress Continue supportive care Outpt follow up with GI as needed Dietary Evaluation Review Comments: 1.Encourage PO intake to meet her needs at least @75% 2.Consider TF Nepro@35ml/hr providing 68g protein 1484kcal, 611ml free water initial rate @20ml/hr, increase by 10ml/6hrs till reaching the goal rate of 35ml/hr. 3. Consider TPN per pharmacy if EN/GI unaccessible. Expected Outcomes/Goals: Prevent catabolism, prevent muscle waisitng and weight loss. Plan discussed with: Patient PARIS VAUGHN MD May 27, 2025 21:27
== END 2025-05-27 12:18 | disposition home health service (06) | DRG 871 ==
LOC: EDBD 00:26 → ER 00:26 → OVERFLOW 04:24 → DOU 23:11 → ICU WEST 05-19 11:47 → DOU 05-22 20:14 → TELE-CENTR 05-24 22:30 → CENTRAL 05-26 10:47
PROVIDERS: ADMIT Nurse Practitioner Acute Care; ATTEND Nurse Practitioner Acute Care
PROC: 05HF33Z Insertion of Infusion Device into Left Cephalic Vein, Percutaneous Approach (ICD-10-PCS; principal; 2025-05-20)
PROC: B54NZZA Ultrasonography of Left Upper Extremity Veins, Guidance (ICD-10-PCS; 2025-05-20)
DX: A41.9 Sepsis, unspecified organism (principal); I21.A1 Myocardial infarction type 2; I50.23 Acute on chronic systolic (congestive) heart failure; J15.69 Pneumonia due to other Gram-negative bacteria; J15.9 Unspecified bacterial pneumonia; J96.21 Acute and chronic respiratory failure with hypoxia; N17.0 Acute kidney failure with tubular necrosis; K72.00 Acute and subacute hepatic failure without coma; E87.20 Acidosis, unspecified; D68.9 Coagulation defect, unspecified; J44.0 Chronic obstructive pulmonary disease with (acute) lower respiratory infection; R65.20 Severe sepsis without septic shock; Z79.01 Long term (current) use of anticoagulants; I13.0 Hypertensive heart and chronic kidney disease with heart failure and stage 1 through stage 4 chronic kidney disease, or unspecified chronic kidney disease; E03.9 Hypothyroidism, unspecified; E11.22 Type 2 diabetes mellitus with diabetic chronic kidney disease; I27.20 Pulmonary hypertension, unspecified; K74.60 Unspecified cirrhosis of liver; N18.9 Chronic kidney disease, unspecified; I48.19 Other persistent atrial fibrillation; I42.8 Other cardiomyopathies; N25.81 Secondary hyperparathyroidism of renal origin; J43.9 Emphysema, unspecified; E78.5 Hyperlipidemia, unspecified; Z86.711 Personal history of pulmonary embolism; I48.91 Unspecified atrial fibrillation; K59.00 Constipation, unspecified; E87.5 Hyperkalemia; Z20.822 Contact with and (suspected) exposure to COVID-19
CPT/HCPCS: 36415; 36600; 71045; 71250; 74018; 74176; 76705; 76775; 80048; 80053; 80061; 80074; 80076; 80202; 81001; 82306; 82378; 82570; 82728; 82805; 82962; 83036; 83605; 83690; 83735; 83880; 83970; 84100; 84132; 84156; 84300; 84439; 84443; 84480; 84484; 84550; 85025; 85379; 85610; 85730; 86038; 87040; 87070; 87077; 87081; 87086; 87088; 87186; 87205; 87426; 87804; 93005; 93306; 93970; 94640; 96361; 96374; 97110; 97116; 97163; 97530; G0378; J0692; J1815; J1956; J2185; J2405; J2470